=== PATIENT | female | born 1955 | race Caucasian/White ===

== ENCOUNTER 2021-09-24 14:22 | Day surgery (SDC) | payer MEDICARE, OTHER, SELFPAY ==
[2021-09-24] MEDS: Lactated Ringers 1,000 ML 15 ML IV (14:35)
[2021-09-24 15:02] VITALS: BP 143/99; PULSE 69; RESP 16; TEMP 36.3; O2SAT 100; BMI 19.3
--- NOTE | 2021-09-24 16:30 | CALC_PTH ---
PATIENT: RENAE VIDAL LOC[place] [facility] [place][id number] AGE/SX: 66/F ROOM: RE09/24/[address]: Dr. Harleen Franklin MD : 1955 BED: DIS: 09/24/2021 SPEC #: [id number] RECD: 09/25/21 07:57 STATUS: KATRIN HURT #: [id number] JOSE R: 09/24/21 16:[address]: Harleen Franklin DEPT: SURGICAL PATHOLOGY RECD BY: Indigo Nieves ENTERED: 09/25/21 12:47 SP TYPE: Calculi OTHR DR: Dr. Flori Batista DO Tissues: CALCULI Procedures: Surgery Specimen Level I HEADER OPERATION: Cysto, ureteroscopy, retro, laser, stent, basket extraction PRE-OP DIAGNOSIS: Calculus of ureter, hydronephrosis, urinary tract infection, dyspareunia TISSUE SUBMITTED: Right ureteral calculi GROSS DIAGNOSIS Fragments of stone, clinically right ureteral calculi. CRISTOFER:juan 09/25/21 COMMENT The calculus is submitted in its entirety for chemical stone analysis. The results from this study will be reported separately. GROSS DESCRIPTION Received without fixative labeled with the patient's name and designated calculus for analysis. The specimen consists of multiple irregular fragments of brownish-black stone that in aggregate measure 0.3 x 0.3 x 0.1 cm. The entire specimen is submitted for stone analysis. / CRISTOFER:juan 09/25/21 CPT: 58816
--- NOTE | 2021-09-24 18:06 | DCINST_ITS ---
Discharge Instructions Diet Discharge Diet: No restrictions Activity Discharge Activity: Return to Normal Activity May resume sexual activity in: 1 week Dressing / Incision Call your doctor if you observe: Fever of 101 or Higher, Inability to urinate, Inability to have a bowel movement and Uncontrolled pain Follow Up Care Please Follow Up With: Harleen Franklin MD When: call office for appt tomorrow afternoon for stent removal Test Results: Test results from this visit will be discussed in further detail at your follow-up appointment, if applicable. Discharge Plan Admission Attending Provider: Harleen Franklin Primary Care Provider: Flori Batista Discharge Orders/Prescriptions Prescriptions: New oxycodone-acetaminophen [Percocet] 5-325 mg tablet 1 tab PO Q8H PRN (Reason: pain) 3 Days Qty: 10 RF: 0 cephalexin [cephalexin] 500 MG capsule 500 mg PO Q12 3 Days Qty: 6 RF: 0 phenazopyridine [phenazopyridine] 100 MG tablet 100 mg PO TID PRN (Reason: bladder spasms) Qty: 30 RF: 0 Continued multivitamin Tablet 1 tab PO DAILY RF: 0 furosemide 20 mg tablet 1 mg PO DAILY RF: 0 fluticasone propionate 50 mcg/actuation Hendricks,Suspension 1 spray INTRANASAL DAILY RF: 0 Discontinued tamsulosin 0.4 mg capsule 0.4 mg PO DAILY RF: 0 Referrals / Follow Up: Flori Batista DO [Primary Care Provider] - Disposition Disposition (needs filled in before D/C Order can be placed): Home, Self Care
--- NOTE | 2021-09-24 18:10 | PCM.OPRPT ---
Problems Associated Problem List Diagnoses (1) Ureteral calculus: (2) Hydronephrosis: Report of Operation Date of Procedure: 09/24/21 Pre-Operative Diagnosis: Right ureteral calculus with hydronephrosis Post-Operative Diagnosis: Same, bladder tumor medium Surgery/Procedure Performed:: Cystoscopy, right ureteroscopy, holmium laser lithotripsy, stone basket extraction, right ureteral stent insertion Surgeon: Harleen Franklin Type of Anesthesia: General Specimen's removed: right ureteral stone Description of Procedure: The patient is a 66-year-old female with history of stones. She developed right-sided lower abdominal pain and a CT scan revealed a right distal ureteral calculus with hydronephrosis. The decision was made to take the patient to the operating room for removal secondary to pain control. Informed consent was obtained. The patient was taken to the operating room and placed on the operating room table. Anesthesia monitored the head, neck, airway, IV access and vital signs throughout the case. Once anesthesia was appropriately administered the patient was placed into dorsal lithotomy position was prepped and draped in usual sterile fashion. The cystoscope was then inserted through the urethra under direct visualization into the urinary bladder. Bilateral ureteral orifices were located in the correct anatomic area of the bladder trigone. The right orifice was edematous consistent with a distal ureteral calculus. In the posterior bladder wall there was one bladder mass approximately 2 cm in size with 2-3 smaller lesions adjacent. At this time a 0.035 Glidewire was passed into the right ureter and seen on fluoroscopy in the renal pelvis. The semirigid ureteroscope was then used to gently intubate the right ureter, identified the distal stone. The holmium laser fiber was used to break the stone into a few small fragments. The stone basket was then used to retrieve these fragments which were then sent for analysis. When all visible fragments were removed, the safety wire was used to place a 6 Khmer 26 cm JJ stent with the wire secured to the right inner thigh using Steri-Strips and liquid adhesive. The patient's bladder was then emptied and the case was terminated. The patient was awakened and taken to the recovery room in good condition. Grafts/Implants Used: 6 x 26 JJ stent Complications none Admit VTE Documentation VTE Present on Admission: Yes VTE Mechan Device Prophylaxis: SCD's VTE Pharm Prophylaxis ordered?: No Reason prophylaxis not ordered:: Treatment Not Indicated
[2021-09-24 18:13] VITALS: BP 106/66; BP 143/99; PULSE 63; RESP 16; TEMP 36.1; O2SAT 100
[2021-09-24 18:17] VITALS: BP 106/74; BP 143/99; PULSE 60; RESP 16; O2SAT 100
[2021-09-24 18:30] VITALS: BP 116/69; BP 143/99; PULSE 56; RESP 16; TEMP 36.1; O2SAT 100
[2021-09-24 18:59] VITALS: BP 133/79; BP 143/99; PULSE 66; RESP 16; TEMP 36.4; O2SAT 100
== END 2021-09-24 19:25 | disposition home or self-care (01) ==
LOC: SDC 14:32 → AC 14:34
PROVIDERS: Referring Provider Urology; Visit Provider Urology
PROC: 0TJ98ZZ Inspection of Ureter, Via Natural or Artificial Opening Endoscopic (ICD-10-PCS; CPT 52352; principal; 2021-09-24 16:20)
DX: N13.2 Hydronephrosis with renal and ureteral calculous obstruction (principal); M19.90 Unspecified osteoarthritis, unspecified site; Z79.899 Other long term (current) drug therapy; Z87.891 Personal history of nicotine dependence; K21.9 Gastro-esophageal reflux disease without esophagitis; N94.10 Unspecified dyspareunia
CPT/HCPCS: 52356; 76000; 82360; 88300; J7120; C2617; J2405

== ENCOUNTER 2021-10-14 07:34 | Outpatient (CLI) | payer MEDICARE, OTHER, SELFPAY ==
--- NOTE | 2021-10-14 07:39 | BI_ITS ---
MAMMOGRAPHY - BILATERAL SCREENING REASON FOR EXAM: Female, 66 years old. Routine annual screening examination. PERTINENT HISTORY: Aunt with breast cancer. History of recent bladder cancer diagnosis. TECHNIQUE: Digital bilateral breast asaf (3D mammographic acquisition) in the CC and MLO projections. 2-D mediolateral oblique (MLO) and craniocaudad (CC) views of both breasts were obtained. CAD: Full Field Digital Mammography with Computer Added Detection was performed. COMPARISON: None. Baseline examination. FINDINGS: Breast Composition: The breasts are extremely dense, which lowers the sensitivity of mammography. There are no dominant masses or suspicious calcifications. A loop recorder device is seen overlying the mid anterior medial aspect of the left breast. No other significant abnormalities are identified. BI/SCRN MAMM (CAD)W/ASAF BILAT IMPRESSION: Negative screening mammogram. Yearly followup mammogram recommended. (A) ASSESSMENT CATEGORY: BIRADS Category 2: Benign. A letter regarding these results will be sent to the patient by the facility within 30 days. Approximately 10% of breast cancers are not detected by mammography. A normal mammogram should not delay biopsy of a clinically suspicious abnormality. [id number] Electronically Signed: Logan Lawson MD at 12:03 EST , Service support ,
--- NOTE | 2021-10-14 12:57 | PFTCOMP ---
COMPLETE PULMONARY FUNCTION TEST INTERPRETATION Brief HPI: Patient is a 66 year old female, currently under the care of myself, who presents to [facility] for complete pulmonary function tests secondary to diagnosis of lung nodule. Respiratory therapist reports good effort and reproducible results. Interpretation: Forced expiration spirometry shows a mild large airways obstructive ventilatory defect with an FEV1 of 78% predicted. There is no significant bronchodilator response by strict ATS criteria. Spirograms are of good quality and plateau slowly, indicating slowly emptying areas of the lungs. The respiratory flow volume loop shows decreased expiratory flow rates at all lung volumes consistent with airway obstruction. Lung volumes by body plethysmography show an elevated total lung capacity at 7.09 L, 147% predicted. FRC and RV are elevated out of proportion. Lung volume measurements are consistent with hyperinflation and air-trapping. Diffusion capacity by carbon monoxide is an elevated at 134% predicted. The airway resistance is normal. No previous pulmonary function tests were available for review. Impression: Irreversible mild large airways obstructive ventilatory defect resulting in air trapping with hyperinflation
== END 2021-10-14 23:59 | disposition short-term general hospital (02) ==
LOC: PSN 07:35
PROVIDERS: Referring Provider Internal Medicine Critical Care Medicine; Visit Provider Internal Medicine Critical Care Medicine
DX: Z12.31 Encounter for screening mammogram for malignant neoplasm of breast (principal); R91.1 Solitary pulmonary nodule
CPT/HCPCS: 77063; 77067; 94060; 94726; 94729

== ENCOUNTER 2022-01-08 06:51 | Outpatient (CLI) | payer MEDICARE, OTHER, SELFPAY ==
--- NOTE | 2022-01-08 06:53 | CT_ITS ---
STUDY: CT CHEST WITHOUT CONTRAST REASON FOR EXAM: Female, 66 years old. Possible bladder ca with lung nodules RADIATION DOSAGE (If Supplied By Facility): CTDIvol = ( 6.15 ) mGy, DLP = ( 239.72 ) mGycm TECHNIQUE: Transaxial imaging was performed without intravenous contrast administration.. Multiplanar coronal and sagittal images were reformatted. Individualized dose optimization techniques were used for this CT. COMPARISON: None. FINDINGS: Small bilateral axillary lymph nodes. Hyperinflation. Emphysematous changes. Scarring at both lung apices. Findings suggestive of linear scarring in the anterior medial aspect of the lingular segment of the left upper lobe. There is a 5.5 mm noncalcified nodule in the right lower lobe adjacent to the right hemidiaphragm as seen on axial image #109. There is a 5.2 mm noncalcified nodule in the left lower lobe laterally as seen on axial image #97. There is a 6.1 mm noncalcified nodule in the left lower lobe adjacent to the left hemidiaphragm as seen on axial image #107. Faint nodules also seen in the anterior aspect of the left lower lobe as seen on axial image #96. 6.9 mm noncalcified nodule in the superior segment of the right lower lobe as well as a noncalcified nodule measuring 5.1 mm in the superior segment of the left lower lobe as seen on axial image #62. There is no demonstrated pleural abnormality. There are calcifications of the coronary arteries. Small pericardial effusion at the level of the base of the heart. Coronary artery calcification Normal mediastinum. Normal hilar regions. Normal enhanced and unenhanced pulmonary arteries. Normal aorta arch and descending thoracic aorta. There are degenerative changes of the thoracic spine. There is a 3 mm sclerotic focus in the anterior aspect of the pedicle of the T3 vertebrae on the right side. 3 mm nonobstructive calculus in the upper pole of the left kidney. Findings suggestive of hyperdense cysts in the left kidney. CT/Chest without Contrast IMPRESSION: Bilateral subcentimeter pulmonary nodules as described. Hyperinflation and emphysematous changes with scarring in both upper lobes. 3 mm sclerotic focus in the anterior aspect of the pedicle of the T3 vertebrae on the right side. Small pericardial effusion at the level of the base of the heart. Electronically Signed: Logan Lawson MD at 9:06 EDT ,
== END 2022-01-08 23:59 | disposition home or self-care (01) ==
LOC: CT 06:52
PROVIDERS: Referring Provider Internal Medicine Critical Care Medicine; Visit Provider Internal Medicine Critical Care Medicine
DX: R91.8 Other nonspecific abnormal finding of lung field (principal)
CPT/HCPCS: 71250

== ENCOUNTER → 2022-04-17 | Outpatient (CLI) | payer MEDICARE, OTHER, SELFPAY ==
--- NOTE | 2022-04-17 15:02 | CT_ITS ---
EXAM: CT CHEST WITHOUT INTRAVENOUS CONTRAST CLINICAL INDICATION: Mulitple pulmonary nodules. TECHNIQUE: Helically acquired images were obtained of the chest without intravenous contrast. This CT exam was performed using one or more of the following dose reduction techniques: automated exposure control, adjustment of the mA and/or kV according to patient size, and/or use of iterative reconstruction technique. This report was created using [employer] report generation technology. RADIATION DOSE: CTDIvol = 6.20 mGy, DLP = 247.90 mGy-cm. COMPARISON: 01/08/2022. FINDINGS: LUNGS AND PLEURAL SPACES: Emphysema. No change in the bilateral scattered pulmonary nodules all measuring 6 mm or less. No pleural effusion or thickening. No pneumothorax. HEART: Coronary artery calcifications. Heart size is normal. No pericardial effusion. MEDIASTINUM: Unremarkable. No mediastinal or hilar adenopathy. Esophagus is unremarkable. No hiatal hernia. THYROID: Unremarkable. No thyroid lesions. BONES/JOINTS: Unremarkable. No suspicious lytic or blastic abnormality. VASCULATURE: Unremarkable. Thoracic aorta is non-dilated. KIDNEYS AND URETERS: Left nephrolithiasis and multiple hyperdense cysts left kidney unchanged. CT/Chest without Contrast IMPRESSION: 1. Emphysema. 2. No change in the bilateral scattered pulmonary nodules all measuring 6 mm or less. 3. Left nephrolithiasis and multiple hyperdense cysts left kidney unchanged. No follow-up imaging required. 4. Coronary artery disease. RECOMMENDATIONS: No change in the bilateral scattered pulmonary nodules all measuring 6 mm or less. Fleischner Society Guidelines for high-risk patients (smoking history or other known risk factors) recommend follow-up chest CT at 15-21 months. If unchanged, no further follow-up. Electronically Signed: Genaro Bello MD at 0:46 EDT ,
== END | disposition home or self-care (01) ==
LOC: CT 14:43
PROVIDERS: Referring Provider Internal Medicine Critical Care Medicine; Visit Provider Internal Medicine Critical Care Medicine
DX: R91.8 Other nonspecific abnormal finding of lung field (principal)
CPT/HCPCS: 71250

== ENCOUNTER → 2022-05-21 | Outpatient (CLI) | payer MEDICARE, OTHER, SELFPAY ==
--- NOTE | 2022-05-21 07:40 | CT_ITS ---
STUDY: CT ABDOMEN AND PELVIS WITHOUT CONTRAST REASON FOR EXAM: Female, 67 years old. L KIDNEY STONE RADIATION DOSAGE (If Supplied By Facility): CTDIvol = ( 6.09 ) mGy, DLP = ( 273.97 ) mGycm TECHNIQUE: Transaxial images were obtained from the dome of the diaphragm to the symphysis pubis without oral contrast, and without intravenous contrast. Sagittal and coronal images were reconstructed. Individualized dose optimization techniques were used for this CT. COMPARISON: None. FINDINGS: Emphysematous changes seen at the lung bases. There is a 4.5 mm noncalcified nodule in the anterior medial aspect of the left lower lobe. This also evidence of a 4.2 mm noncalcified pleural-based nodule in the lateral aspect of the left lower lobe. There is also evidence of a 7.6 mm noncalcified nodule in the lateral aspect of the left lower lobe. There is a 4.9 mm noncalcified nodule in the posterior aspect of the right lower lobe. These weren''t visualized on the prior CT scan of the thorax dated 04/17/2022. Minimal anterior pericardial thickening. Normal liver. The gallbladder is not visualized most likely secondary to prior cholecystectomy. Borderline splenomegaly. Normal pancreas. Normal bilateral adrenal glands. Normal right kidney. Multiple hyperdense cysts are seen in the left kidney. There is a 3 mm nonobstructive calculus in the upper pole calyx of the left kidney. Normal visualized stomach. Normal small intestine. Large amount of fecal material is seen in the colon. The appendix is visualized and appears normal. There is diffuse atherosclerotic calcification of the abdominal aorta, without a demonstrated aneurysm. Normal inferior vena cava. Normal retroperitoneum. Normal urinary bladder. Phleboliths are seen within the pelvis. Normal abdominal wall. There are diffuse degenerative changes of the visualized lumbar spine. Grade 1 anterolisthesis of L4 on L5 without spondylolysis. There is a 6.8 mm sclerotic density in the right iliac bone adjacent to the right sacroiliac joint. There is also evidence of a 3.4 mm sclerotic focus in the right supra-acetabular region. These may represent small bone islands. CT/Abdomen/Pelvis without Cont IMPRESSION: Multiple pulmonary nodules seen at the lung bases. These are unchanged as compared to prior CT scan of the thorax. Multiple small left hyperdense renal cysts. There is a 3 mm nonobstructive calculus in the upper pole calyx of the left kidney. Borderline splenomegaly. Electronically Signed: Logan Lawson MD at 9:26 EDT ,
== END | disposition home or self-care (01) ==
LOC: CT 07:39
PROVIDERS: Referring Provider Urology; Visit Provider Urology
DX: N20.0 Calculus of kidney (principal)
CPT/HCPCS: 74176

== ENCOUNTER → 2023-03-02 | Outpatient (CLI) | payer MEDICARE, OTHER, SELFPAY ==
--- NOTE | 2023-03-02 14:49 | CT_ITS ---
STUDY: LOW DOSE CT LUNG CANCER SCREENING REASON FOR EXAM: Female, 68 years old. follow up nodules, history of bladder cancer and emphysema. Former smoker age 14 and 48, less than half pack per day. RADIATION DOSAGE (If Supplied By Facility): CTDIvol = ( 2.01 ) mGy, DLP = ( 78.51 ) mGycm TECHNIQUE: No contrast was administered. Low dose technique was utilized (average mAS-38 and kVp 120). 1.25 mm axial source images with a slice interval of 1.25-mm were reconstructed in lung windows. Coronal and sagittal reformats obtained. COMPARISON: January 08, 2022 NODULES: Nodule #: 1 Density: Solid Lung location: Posterior right lower lobe lobe: 0.4 cm from pleura Location in series: Series Number: 2 Image: 204 Size - D1 x D2 mm: 4 x 4 mm: 4 average diameter Margin: spiculated Shape: Round Calcification: None Fat: None Temporal comparison: Unchanged from April 17, 2022 Nodule #: 2 Density: Solid Lung location: Medial right lower lobe lobe: 1.7 cm from pleura Location in series: Series Number: 2 Image: 140 Size - D1 x D2 mm: 7 x 3 mm: 5mm average diameter Margin: Smooth Shape: Oval Calcification: None Fat: None Temporal comparison: Unchanged from April 17, 2022 Nodule #: 3 Density: Solid Lung location: Inferior left lower lobe: 0.2 cm to diaphragm Location in series: Series Number: 2 Image: 204 Size - D1 x D2 mm: 8 x 5 mm: 6 average diameter Margin: Smooth Shape: Oval Calcification: None Fat: None Temporal comparison: Unchanged from April 17, 2022 Nodule #: 4 Density: Solid Lung location: Inferior left lower lobe: 0.2 cm to diaphragm Location in series: Series Number: 2 Image: 202 Size - D1 x D2 mm: 5 x 4 mm: 5 average diameter Margin: Mildly spiculated Shape: Round Calcification: None Fat: None Temporal comparison: Unchanged from April 17, 2022 Nodule #: 5 Density: Solid Lung location: Lateral left lower lobe: Along the diaphragm Location in series: Series Number: 2 Image: 212 Size - D1 x D2 mm: 4x3mm: 4 average diameter Margin: Mildly spiculated Shape: [Oval Calcification: None Fat: None Temporal comparison: Unchanged from April 17, 2022 Nodule #: 6 Density: Solid Lung location: Lateral left upper lobe: 11 mm from the diaphragm Location in series: Series Number: 2 Image: 83 Size - D1 x D2 mm: 2 x2 mm: 2 average diameter Margin: Smooth Shape: [Round Calcification: None Fat: None Temporal comparison: Unchanged from April 17, 2022 Emphysema: Lungs are hyperexpanded and hyperlucent compatible with underlying emphysematous change. No airspace consolidation, effusion, or pneumothorax. Mild bilateral apical scarring. Right middle lobe, anterior right lower lobe, lateral left upper and lower lobe mild centrilobular and tree-in-bud opacities mildly increased from April 17, 2022. Endobronchial lesion: None Aorta: Mild aortic atherosclerosis without ectasia. CORONARY ARTERIES: Mild coronary atherosclerosis. Heart: No cardiomegaly or pericardial effusion. Pulmonary artery: No pulmonary arterial enlargement. Mediastinal nodes: Scattered mediastinal lymph nodes up to 5 mm in short axis in the pulmonary window, unchanged from April 17, 2022. No bulky hilar adenopathy. Other chest and abdominal findings: Multiple hyperdense left renal cysts, unchanged from prior exam. CT/Low Dose CT Lung Screening IMPRESSION: Multiple pulmonary nodules up to 7 mm in size without change from April 17, 2022 Mild diffuse emphysematous change. Mild increase in scattered bilateral peripheral tree-in-bud opacities and punctate centrilobular nodules compatible with with atypical infection, commonly nontuberculous mycobacterial. Lung-RADS category 2 - Continue annual screening with LDCT in 12 months. IMPORTANT NOTES FOR USE: ACR Lung-RADS Version 1.1 Assessment Categories Release Date: 2018 Category: Coded 0-4 bases on nodule(s) with highest degree of suspicion. Negative screen is defined as categories 1 and 2; a positive screen is defined as categories 3 and 4. Category 3 and 4A nodules that are unchanged on interval CT should be coded as category 2, and individuals returned to screening in 12 months. Category 4X: Category 3 or 4 nodules with additional imaging findings that increase the suspicion of lung cancer, such as spiculation, GGN that doubles in size in 1 year, enlarged lymph notes, etc. Category Modifiers: S (significant finding unrelated to lung cancer) Electronically Signed: Sergey Guevara MD at 11:37 EDT ,
== END | disposition home or self-care (01) ==
LOC: CT 14:49
PROVIDERS: Referring Provider Internal Medicine Critical Care Medicine; Visit Provider Internal Medicine Critical Care Medicine
DX: R91.8 Other nonspecific abnormal finding of lung field (principal); Z87.891 Personal history of nicotine dependence
CPT/HCPCS: 71271

== ENCOUNTER → 2023-05-21 | Outpatient (CLI) | payer MEDICARE, OTHER, SELFPAY ==
--- NOTE | 2023-05-21 15:30 | RAD_ITS ---
INDICATION: RENAL CALCULUS EXAMINATION/TECHNIQUE: X-RAY - XR Abdomen 1 View COMPARISON: No prior examinations are available for comparison. FINDINGS: BOWEL GAS PATTERN: Non-obstructive. No bowel or stomach distention. FREE AIR: Not assessed on a single supine view. ORGANOMEGALY: Not seen. CALCIFICATIONS: No abnormal calcifications observed. LOWER CHEST: No acute pathology. BONES AND SOFT TISSUES: No acute pathology. RAD/Abdomen Single View IMPRESSION: 1. Non-obstructive bowel gas pattern. 2. No abnormal calcifications are seen. Electronically Signed: Harsh Almanzar MD at 15:59 EDT ,
== END | disposition home or self-care (01) ==
LOC: MTRAD 15:25
PROVIDERS: Referring Provider Urology; Visit Provider Urology
DX: N20.0 Calculus of kidney (principal)
CPT/HCPCS: 74018

== ENCOUNTER → 2023-11-12 | Outpatient (CLI) | payer MEDICARE, OTHER, SELFPAY ==
--- NOTE | 2023-11-12 13:15 | RAD_ITS ---
STUDY: X-RAY - ABDOMEN/PELVIS REASON FOR EXAM: Female, 68 years old. KUB- STONES TECHNIQUE: KUB COMPARISON: May 21, 2023 FINDINGS: Normal visualized lung bases. There is an unremarkable bowel gas pattern. There is no demonstrated free abdominal air. The visualized liver, spleen and kidneys are grossly normal in size and morphology. There is tiny calcific density in the left upper quadrant which may represent renal or proximal ureteral calculus. There is mild dextroscoliosis of the thoracolumbar spine. RAD/Abdomen Single View IMPRESSION: Questionable tiny left renal or proximal ureteral calculus. If clinically indicated ultrasound or CT would be helpful for further evaluation Electronically Signed: Diego Hwang MD at 22:09 EST ,
--- OUTSIDE RECORDS SUMMARY | 2023-11-12 13:32 | XMS RPT_ITS | CCD ---
Author Name Unknown Address [address] [place] [address] Organization [facility] Care Team Providers Care Community Recreation Programmer Name Role Phone RIVER STEVEN, DR VILLEDA Primary Care Physician [phone] RIVER STEVEN, DR VILLEDA Primary Care Unavailable RIVER STEVEN, DR VILLEDA Attending Unavailable MICHAEL FRANKS, KRISTEN Resendez Attending Unavailable RIVER STEVEN, DR VILLEDA Primary Care Unavailable MICHAEL FRANKS, KRISTEN Resendez Attending Unavailable RIVER STEVEN, DR VILLEDA Primary Care Unavailable RIVER STEVEN, DR VILLEDA Primary Care Unavailable MICHAEL FRANKS, KRISTEN Resendez Attending Unavailable RIVER STEVEN, DR VILLEDA Attending Unavailable RIVER STEVEN, DR VILLEDA Primary Care Unavailable KAREN FRANKS, LINDEN Ford Attending Unavailable RIVER STEVEN, DR VILLEDA Primary Care Unavailable MICHAEL FRANKS, KRISTEN Resendez Attending Unavailable RIVER STEVEN, DR VILLEDA Primary Care Unavailable MICHAEL FRANKS, KRISTEN Resendez Attending Unavailable RIVER STEVEN, DR VILLEDA Primary Care Unavailable MICHAEL FRANKS, KRISTEN Resendez Attending Unavailable RIVER STEVEN, DR VILLEDA Primary Care Unavailable Medications Current Medications Medication Drug Class(es) Dates Sig (Normalized) Sig (Original) amoxicillin 875 mg / clavulanate 125 mg oral tablet (1 source) Penicillin-class Antibacterial Start: 10-01-2023 End: 10-11-2023 take 1 tablet by mouth every twelve hours amoxicillin-clavu lanate 875 mg-125 mg oral tablet 1 tab(s), Oral, q12h, X 10 day(s), # 20 tab(s), 0 Refill(s), 10/11/23 4:14:00 PM EST, Pharmacy: [id number], Acute sinusitis, 167, cm, 10/01/23 16:05:00 EST, Height, 48.6, kg, 10/01/23 16:00:00 EST, Dosing Weight Start Date: 10/01/23 Stop Date: 10/11/23 Status: Ordered fluticasone propionate 0.05 mg/actuat metered dose nasal spray (13 sources) Corticosteroid Start: 07-05-2020 take 1 dose nasal route once daily fluticasone 50 mcg/inh NASAL spray Dose = 2 spray(s), Nostril, each, qDay, # 3 EA, 1 Refill(s), Pharmacy: [facility], 163, cm, 07/05/20 16:42:00 EDT, Height, kg, 07/05/20 16:42:00 EDT, Dosing Weight Start Date: 07/05/20 Status: Ordered fluticasone 50 mcg/inh NASAL spray (7 sources) Start: 07-05-2020 take 1 dose nasal route once daily fluticasone 50 mcg/inh NASAL spray Dose = 2 spray(s), Nostril, each, qDay, # 3 EA, 1 Refill(s), Pharmacy: [facility], 163, cm, 07/05/20 16:42:00 EDT, Height, kg, 07/05/20 16:42:00 EDT, Dosing Weight Start Date: 07/05/20 Status: Ordered furosemide 20 mg oral tablet (10 sources) Loop Diuretic Start: 07-25-2021 Lasix 20 mg oral tablet Dose : 20 mg = 1 tab(s), Oral, qDay, # 90 tab(s), 1 Refill(s), Pharmacy: [facility], 162.5, cm, 07/25/21 16:44:00 EDT, Height, kg, 07/25/21 16:44:00 EDT, Dosing Weight Start Date: 07/25/21 Status: Ordered herbal/nutritional product (5 sources) Start: 10-16-2021 take 1 tablet by mouth once daily as needed for constipation herbal/nutritiona l product Dose = 1 tab(s), Oral, Daily, PRN Constipation, cascara, 0 Refill(s) Start Date: 10/16/21 Status: Ordered Problems Active Problems Problem Classification Problem Date Documented Da te Episodic/Chronic Calculus of urinary tract (20 sources) History of calculus of kidney 09-18-2021 Episodic Cancer of bladder (14 sources) Malignant tumor of urinary bladder; Translations: [Malignant neoplasm of bladder, unspecified] Onset: 11-30-2022 01-30-2022 Chronic Cardiac dysrhythmias (20 sources) Atrial fibrillation; Translations: [Supraventricular tachycardia] 08-07-2021 Chronic Cardiac dysrhythmias (20 sources) Palpitations; Translations: [Bradycardia] 11-17-2019 Episodic Past or Other Problems Problem Classification Problem Date Documented Date Episodic/Chronic Residual codes; unclassified (20 sources) History of cardiovascular surgery Onset: 11-14-2018 11-17-2019 Episodic Results Test Name Value Interpretation Reference Range Facil ity Vital Signs Date Time Vital Sign Value Performing Clinician Faci lity 06-19-2022 12:40-0400 diastolic 90 mm[Hg] LAUREN REYNOLDS MD [address] [place] [address] 06-19-2022 12:40-0400 Heart rate 48 /min LAUREN REYNOLDS MD [address] 06-19-2022 12:40-0400 Respiratory rate 16 /min LAUREN REYNOLDS MD [address] 06-19-2022 12:40-0400 systolic 170 mm[Hg] LAUREN REYNOLDS MD [address] 06-19-2022 09:50-0400 Body height 162.6 cm LAUREN REYNOLDS MD [address] [place] [address] 06-19-2022 09:50-0400 Body temperature 97.88 [degF] LAUREN REYNOLDS MD [address] 06-19-2022 09:50-0400 Body weight 49.8 kg LAUREN REYONLDS MD [address] 06-19-2022 09:50-0400 diastolic 92 mm[Hg] LAUREN REYNOLDS MD [address] 06-19-2022 09:50-0400 Heart rate 49 /min LAUREN REYNOLDS MD [address] 06-19-2022 09:50-0400 Respiratory rate 16 /min LAUREN REYNOLDS MD [facility] 06-19-2022 09:50-0400 systolic 157 mm[Hg] LAUREN REYNOLDS MD [facility] 11-07-2021 15:15-0500 Body temperature 96.44 [degF] KRISTEN BEDOYA MD [facility] 11-07-2021 15:15-0500 Diastolic Blood Pressure NBP 70 1 KRISTEN BEDOYA MD [facility] 11-07-2021 15:15-0500 Heart rate 58 /min KRISTEN BEDOYA MD [facility] 11-07-2021 15:15-0500 Reason For Taking VItal Signs KRISTEN BEDOYA MD [facility] 11-07-2021 15:15-0500 Respiratory rate 14 /min KRISTEN BEDOYA MD [facility] 11-07-2021 15:15-0500 Systolic Blood Pressure NBP 125 1 KRISTEN BEDOYA MD [facility] 11-07-2021 15:00-0500 Diastolic Blood Pressure NBP 81 1 KRISTEN BEDOYA MD [facility] 11-07-2021 15:00-0500 Mean blood pressure 89 mm[Hg] KRISTEN BEDOYA MD [facility] 11-07-2021 15:00-0500 Systolic Blood Pressure NBP 118 1 KRISTEN BEDOYA MD [facility] 11-07-2021 14:43-0500 Body temperature 97.34 [degF] KRISTEN BEDOYA MD [facility] 11-07-2021 14:43-0500 Diastolic Blood Pressure NBP 51 1 KRISTEN BEDOYA MD [facility] 11-07-2021 14:43-0500 Heart rate 54 /min KRISTEN BEDOYA MD [facility] 11-07-2021 14:43-0500 Mean blood pressure 69 mm[Hg] KRISTEN BEDOYA MD [facility] 11-07-2021 14:43-0500 Respiratory rate 16 /min KRISTEN BEDOYA MD [facility] 11-07-2021 14:43-0500 Systolic Blood Pressure NBP 123 1 KRISTEN BEDOYA MD [facility] 11-07-2021 14:31-0500 Heart rate 57 /min KRISTEN BEDOYA MD [facility] 11-07-2021 14:31-0500 Mean blood pressure 85 mm[Hg] KRISTEN BEDOYA MD [facility] 11-07-2021 13:43-0500 Body temperature 97.52 [degF] KRISTEN BEDOYA MD [facility] 11-07-2021 13:30-0500 Body temperature 96.93 [degF] KRISTEN BEDOYA MD [facility] 11-07-2021 13:25-0500 Body temperature 96.6 [degF] KRISTEN BEDOYA MD [facility] 11-07-2021 13:20-0500 Body temperature 97.05 [degF] KRISTEN BEDOYA MD [facility] 11-07-2021 10:35-0500 Body height 163.8 cm KRISTEN BEDOYA MD [facility] 11-07-2021 10:35-0500 Body weight 50.8 kg KRISTEN BEDOYA MD [facility] 11-07-2021 10:35-0500 Diastolic blood pressure 85 mm[Hg] KRISTEN BEDOYA MD [facility] 11-07-2021 10:35-0500 Heart rate 69 /min KRISTEN BEDOYA MD [facility] 11-07-2021 10:35-0500 Mean blood pressure 97 mm[Hg] KRISTEN BEDOYA MD [facility] 11-07-2021 10:35-0500 Systolic blood pressure 122 mm[Hg] KRISTEN BEDOYA MD [facility] 10-31-2021 13:31-0500 Body height 164 cm KRISTEN BEDOYA MD [facility] 10-31-2021 13:31-0500 Body temperature 96.8 [degF] KRISTEN BEDOYA MD [facility] 10-31-2021 13:31-0500 Body weight 51.9 kg KRISTEN BEDOYA MD [facility] 10-31-2021 13:31-0500 Body weight 19.3 kg/m2 KRISTEN BEDOYA MD [facility] 10-31-2021 13:31-0500 diastolic 79 mm[Hg] KRISTEN BEDOYA MD [facility] 10-31-2021 13:31-0500 Heart rate 72 /min KRISTEN BEDOYA MD [facility] 10-31-2021 13:31-0500 systolic 128 mm[Hg] KRISTEN BEDOYA MD [facility] Encounters Encounter Date Encounter Type Care Provider Facility Start: 10-05-2023 End: 10-06-2023 ambulatory LINDEN JONES MD Facility:B Start: 10-05-2023 End: 10-05-2023 Patient encounter procedure LINDEN JONES MD [facility] Start: 08-07-2023 End: 08-08-[address] CHRISTIANA HOLMAN DO Facility:B Start: 08-07-2023 End: 08-07-[address] CHRISTIANA HOLMAN DO [facility] Start: 06-30-2023 End: 07-01-2023 ambulatory KRISTEN BEDOYA MD Facility:A Start: 06-30-2023 End: 06-30-2023 Patient encounter procedure KRISTEN BEDOYA MD [facility] Start: 06-21-2023 End: 06-22-2023 ambulatory KRISTEN BEDOYA MD Facility:B Start: 06-21-2023 End: 06-21-2023 Patient encounter procedure KRISTEN BEDOYA MD [facility] Start: 06-20-2023 End: 06-21-[address] CHRISTIANA HOLMAN DO Facility:B Start: 06-11-2023 End: 06-12-2023 ambulatory KRISTEN BEDOYA MD Facility:B Start: 06-11-2023 End: 06-11-2023 Patient encounter procedure KRISTEN BEDOYA MD [facility] Start: 01-23-2023 End: 01-24-[address] CHRISTIANA HOLMAN DO Facility:B Start: 01-23-2023 End: 01-23-[address] CHRISTIANA HOLMAN DO [facility] Start: 12-09-2022 End: 12-10-2022 ambulatory KRISTEN BEDOYA MD Facility:A Start: 12-09-2022 End: 12-09-2022 Patient encounter procedure KRISTEN BEDOYA MD [facility] Start: 11-30-2022 End: 12-05-2022 ambulatory KRISTEN BEDOYA MD Facility:B Start: 11-30-2022 End: 12-04-2022 Outreach Lab KRISTEN BEDOYA MD [facility] Start: 09-02-2022 End: 09-02-2022 Patient encounter procedure KRISTEN BEDOYA MD [facility] Start: 08-26-2022 End: 08-30-2022 Outreach Lab KRISTEN BEDOYA MD [facility] Start: 06-19-2022 End: 06-19-2022 SAME DAY STAY LAUREN REYNOLDS MD [facility] Start: 06-03-2022 End: 06-03-2022 Patient encounter procedure KRISTEN BEDOYA MD [facility] Start: 01-17-2022 End: 01-17-[address] CHRISTIANA HOLMAN DO [facility] Start: 11-25-2021 End: 11-25-2021 Patient encounter procedure KRISTEN BEDOYA MD [facility] Start: 11-07-2021 End: 11-07-2021 SAME DAY STAY KRISTEN BEDOYA MD [facility] Start: 10-31-2021 End: 10-31-2021 Admission to establishment KRISTEN BEDOYA MD [facility] Start: 10-16-2021 End: 10-16-2021 Patient encounter procedure KRISTEN BEDOYA MD [facility] Start: 09-26-2021 End: 09-26-[address] CHRISTIANA HOLMAN DO [facility] Start: 09-19-2021 End: 09-19-[address] CHRISTIANA HOLMAN DO [facility] Start: 09-18-2021 End: 09-22-[address] CHRISTIANA HOLMAN DO [facility] Procedures Date Procedure Procedure Detail Performing Clinician Start: 06-30-2023 Transurethral cystoscopy KRISTEN BEDOYA MD Start: 11-07-2021 Cystoscopy and transurethral resection of bladder tumor KRISTEN BEDOYA MD Start: 08-08-[address] CHRISTIANA SEPULVEDA DO Immunizations Immunization Date Immunization Notes Care Provider Fa juani 08-29-2021 COVID-19, mRNA, LNP- S, PF, 100 mcg/ 0.5 mL dose; Translations: [Moderna COVID-19 Vaccine] DR CHRISTIANA HOLMAN DO [facility] 02-04-2021 SARS-CoV-2 (COVID-19 ) mRNA-[address] CHRISTIANA HOLMAN DO [facility] Payers Date Payer Category Payer Medicare [id number] 2022 Private Health Insurance [id number] 1955 Unknown [id number] 2.16.8 [id number] 1955 Unknown [id number] 2.16.8 [id number] 1955 Unknown [id number] 2.16.8 [id number] 1955 Unknown [id number] 2.16.8 [id number] 1955 Unknown [id number] 2.16.8 [id number] 1955 Unknown [id number] 2.16.8 [id number] 1955 Unknown [id number] 2.16.8 [id number] 1955 Unknown [id number] 2.16.8 [id number] 1955 Unknown [id number] 2.16.8 [id number] Social History Date Type Detail Facility Start: 11-14-2018 End: 10-31-2021 Ex-smoker (finding) [facility] [place] Sex Assigned At Female [facility] Functional Status Date Assessment Result Facility 06-19-2022 Functional Status Ambulating in room [facility] 06-19-2022 Functional Status Maintained [facility] spital Mental Status Date Assessment Result Facility 06-19-2022 Mental Status Orientation Oriented x 4 [facility] 06-19-2022 Mental Status [facility] 06-19-2022 Mental Status [facility] Clinical Notes 11-07-2021 to 06-11-2023 LaboratoryLaboratoryLaboratoryLaboratoryLaboratoryLaboratoryLaboratoryLaboratory LaboratoryLaboratoryLaboratoryRadiologyLaboratoryRadiologyLaboratoryLaboratoryLa boratoryLaboratoryLaboratory Note Date & Type Note Facility 06-11-2023 Note ORIGINAL EXAMINATION: LIMITED RETROPERITONEAL ULTRASOUND06/11/2023 10:30 am COMPARISON: CT abdomen pelvis 09/19/2021 HISTORY: ORDERING SYSTEM PROVIDED HISTORY: Reason for Exam: bladder cancer FINDINGS: The urinary bladder appears unremarkable with a prevoid volume of approximately 357 mL and a postvoid volume of 11 mL. Bilateral ureteral jets visualized. The right kidney measures 10.7 x 3.8 x 5.3 cm. Suspected 4 mm nonobstructing right renal calculus. Normal parenchymal thickness and echogenicity. Mild pelviectasis. The left kidney measures 10.6 x 4.4 x 4.4 cm. Multiple left renal cyst, 1 of which contains a thin septation and measures 1.4 x 1.2 x 1.3 cm. Some of the cysts likely contain milk of calcium. Additional simple appearing exophytic simple cyst in the inferior pole measures 4.1 x 3.3 x 3.5 cm. There may be some cortical thinning in portions of the left kidney which seems to have slightly nodular margins also. No evidence of obstruction. IMPRESSION: And are there is a tiny right renal calculus. Mild right renal pelviectasis without caliectasis is probably of no clinical significance The left kidney shows some areas of cortical scarring and thinning and multiple echogenic foci which may be milk of calcium within small cysts. No suspicious renal lesion on either side. . No focal abnormalities of urinary bladder. I have personally reviewed the images of this examination and agree with the resident's findings and interpretation. Interpreted by: Neil Belle MD Preliminary Report By: Marleni Gamboa Electronically signed By Neil Belle MD Dictated Date: 06/11/2023 2:43:06 PM Prelim Date: 06/11/2023 5:07:36 PM Sign Date: 06/11/2023 5:07:36 PM Ordering Provider: KRISTEN BEDOYA [facility] 12-01-2022 Note Pathology report verified by [facility] Screened by: STEVE CHOWDHURY Electronically signed by CALVIN BALTAZAR Sign-Out Date: 12/02/2022 11:14 Performing Lab: [address] Pathology Dept [facility] 12-01-2022 Note Pathology report verified by [facility] Screened by: STEVE CHOWDHURY Electronically signed by CALVIN BALTAZAR Sign-Out Date: 12/02/2022 11:14 Performing Lab: [address] Pathology Dept [facility] 12-01-2022 Note Pathology report verified by [facility] Screened by: STEVE CHOWDHURY Electronically signed by CALVIN BALTAZAR Sign-Out Date: 12/02/2022 11:14 Performing Lab: [address] Pathology Dept [facility] 12-01-2022 Note Pathology report verified by [facility] Screened by: STEVE CHOWDHURY Electronically signed by CALVIN BALTAZAR Sign-Out Date: 12/02/2022 11:14 Performing Lab: [place] [id number] [facility] Pathology Dept [facility] 12-01-2022 Note Pathology report verified by [facility] Screened by: STEVE CHOWDHURY Electronically signed by CALVIN BALTAZAR Sign-Out Date: 12/02/2022 11:14 Performing Lab: [facility], [address] [place] [address] Pathology Dept [facility] 06-19-2022 Hospital Discharg e instructions Patient Education 06/19/2022 13:30:43 3- Loop recorder implant.explant 10/2019 (CUSTOM) LOOP RECORDER INPLANT/EXPLANT Discharge Instructions WOUND CARE DO NOT place any ointments, creams, powders or lotions on the incision. Call your doctor s office immediately if you have: oIncreased redness oDrainage from the incision oIncreased pain, warmth or swelling on or around the site oFever or chills that you cannot connect with a cold or flu If you have a dressing: oKeep the dressing clean and dry oYou may remove it after 5 days If you do not have a dressing: oDO NOT shower or get the incision wet for 5 days. oDO NOT clean the incision with any soap, water, peroxide or alcohol. oLeave it dry and uncovered for 5 days, then you may shower using soap and water. oWear loose fitting clothes over the incisional site to avoid irritation until it is healed. MEDICATIONS You may take Tylenol (acetaminophen) for incisional pain or discomfort. ACTIVITY RESTRICTIONS You may return to your normal activities after 24 [address] may be restricted, especially if you have passed out in the past. Discuss driving restrictions with your director of accounts receivable. FOLLOW UP Follow up with the Pacemaker center for routine evaluation of your device. Your appointment to have your device checked and to see the doctor in 12-14 weeks has been scheduled and is listed above in the follow up section of these discharge instructions. Device Monitor Now that you have a permanent pacemaker, ICD, and/or loop recorder (all called a device ) it should be checked regularly. This is done with a monitor that sends information from the device to your director of accounts receivable (heart doctor) office. How will I get my monitor? The monitor will be shipped to your home within 6 weeks after you are discharged. But, if you are given the monitor before discharge, please take it home. You may get other equipment (such as a blood pressure cuff and weight scale) shipped as well. There is no charge for this equipment. How does the monitor work? The monitor needs to be set up close to where you sleep. The monitor will automatically fern picker heart signals and send the information to your doctor. Or you may be asked to push a button to send the information. What are the next steps? You will have an appointment with the nurse at the Device Clinic in about 2 weeks and the nurse will check your device (you will not see your doctor). The nurses will talk to you about the monitor at that time. When you get the monitor, there will be clear instructions with how to set it up. Please call the Device Clinic if you have questions. [facility]: [phone] Ask for the Device Clinic or patrick-in extension [phone] when prompted. Device Clinic Location: [facility] (not the physician office building). Enter the [facility] and take the elevators to the 2nd floor. Take the monroy to the slight left labeled [facility] . If you are interested, you may find information about your device on the web, including videos that will help you understand and set up your monitor. The monitor you will get is based on the company that manufactured your device. Your device card will tell you the vascular surgeon. Using the search box: [employer]: Georgi Communicator quick start oPatient Help: [employer]: [facility] quick start oPatient Help: [employer] ([place]): [email or web address] quick start oPatient Help: Other important information about your device: Always carry your device card with you. Your device may set off a metal detector. Be sure you have your device card with you if you plan to go through any area, such as an airport that may have a metal detector. Before having any test or procedure, make sure you tell the healthcare professional that you have an implanted device. Follow Up Care 05/21/2022 12:38:20 With:[facility] Address: [address] [place] [address] -[address] [address]- [phone] When:09/18/2022 14:30:00 [facility] 06-19-2022 Summary of episod e note Discharge Instructions Thank you for allowing [facility] to assist you with your healthcare needs. The following is important discharge information regarding your hospital visit. Your Care Team CHRISTIANA HOLMAN DO What to do next Scheduled Follow-Up Appointments Appointment Type When With Where Contact InformationPC OV 08/07/2022 03:00 PM EST CHRISTIANA HOLMAN DO [address] [address] URO Off Proc Cysto 09/02/2022 09:00 AM EST KRISTEN BEDOYA MD [facility] CV Office Procedure ILR 09/18/2022 02:30 PM EST [facility] CV OV 05/20/2023 04:15 PM EDT [facility] Follow Up Appointments Follow Up with DEVICE CLINIC When 09/18/2022 02:30 PM EST Where: [address] [place] [address] [id number]- [phone] The Following Activity and Diet Have Been Ordered for You Discharge Activity - Ordered -- May Shower, no restrictions, 06/19/22 12:39:00 EDT No qualifying data available. Allergies NKA Medications Please ask your primary doctor or pharmacist before taking any other medication not listed, including over the counter drugs, herbal medications, vitamins and or supplements as they may interact with your home medications. What How Much When Instructions Last Dose Unchanged fluticasone nasal (fluticasone 50 mcg/ inh NASAL spray) 2 spray(s) each nostril Once a day Unchanged furosemide (Lasix 20 mg oral tablet) 1 tab(s) by mouth Once a day Unchanged ibuprofen (Advil 200 mg oral tablet) 2 tab(s) by mouth Two (2) times a day Unchanged multivitamin (Multivitamin) 1 tab(s) by mouth Every day Please take this list to your next doctor s visit. Bring all medications you take, including over the counter medications, herbals and other supplements with you to your doctor s visit. Patients and families are reminded to discard old lists and to update any records with all medication providers or retail pharmacies. Education Materials LOOP RECORDER INPLANT/EXPLANT Discharge Instructions WOUND CARE DO NOT place any ointments, creams, powders or lotions on the incision. Call your doctor s office immediately if you have: o Increased redness o Drainage from the incision o Increased pain, warmth or swelling on or around the site o Fever or chills that you cannot connect with a cold or flu If you have a dressing: o Keep the dressing clean and dry o You may remove it after 5 days If you do not have a dressing: o DO NOT shower or get the incision wet for 5 days. o DO NOT clean the incision with any soap, water, peroxide or alcohol. o Leave it dry and uncovered for 5 days, then you may shower using soap and water. o Wear loose fitting clothes over the incisional site to avoid irritation until it is healed. MEDICATIONS You may take Tylenol (acetaminophen) for incisional pain or discomfort. ACTIVITY RESTRICTIONS You may return to your normal activities after 24 hours Your [address] may be restricted, especially if you have passed out in the past. Discuss driving restrictions with your director of accounts receivable. FOLLOW UP Follow up with the Pacemaker center for routine evaluation of your device. Your appointment to have your device checked and to see the doctor in 12-14 weeks has been scheduled and is listed above in the follow up section of these discharge instructions. Device Monitor Now that you have a permanent pacemaker, ICD, and/or loop recorder (all called a device ) it should be checked regularly. This is done with a monitor that sends information from the device to your director of accounts receivable (heart doctor) office. How will I get my monitor? The monitor will be shipped to your home within 6 weeks after you are discharged. But, if you are given the monitor before discharge, please take it home. You may get other equipment (such as a blood pressure cuff and weight scale) shipped as well. There is no charge for this equipment. How does the monitor work? The monitor needs to be set up close to where you sleep. The monitor will automatically fern picker heart signals and send the information to your doctor. Or you may be asked to push a button to send the information. What are the next steps? You will have an appointment with the nurse at the Device Clinic in about 2 weeks and the nurse will check your device (you will not see your doctor). The nurses will talk to you about the monitor at that time. When you get the monitor, there will be clear instructions with how to set it up. Please call the Device [facility] if you have questions. [facility]: [phone] Ask for the Device Clinic or patrick-in extension [phone] or [phone] when prompted. Device Clinic Location: [facility] (not the physician office building). [facility] and take the elevators to the 2nd floor. Take the monroy to the slight left labeled [facility] . If you are interested, you may find information about your device on the web, including videos that will help you understand and set up your monitor. The monitor you will get is based on the company that manufactured your device. Your device card will tell you the vascular surgeon. Using the search box: [employer]: Georgi Communicator quick start o Patient Help: [employer]: MyCareLink quick start o Patient Help: [place] ([place]): [email or web address] quick start o Patient Help: Other important information about your device: Always carry your device card with you. Your device may set off a metal detector. Be sure you have your device card with you if you plan to go through any area, such as an airport that may have a metal detector. Before having any test or procedure, make sure you tell the healthcare professional that you have an implanted device. Additional Information VACCINATE! IT SAVES LIVES! Members of the community who have not yet received the COVID-19 vaccine and would like to receive it can visit one of [facility] vaccine clinics. There are many vaccine clinic locations within the [facility]. For locations and available times, please visit [email or web address] [email or web address] It is important to note that some COVID mobile vaccine clinics are held outdoors and may be canceled in rainy or stormy conditions. To learn more about pediatric vaccinations (ages 5-11), we invite you to visit the [facility] webpage. [email or web address] [email or web address] To learn more about the COVID-19 vaccine, we invite you to visit the [facility] website for a list of frequently asked questions. [email or web address] [email or web address] [facility] Patient Portal Access Instructions: Stay connected with your healthcare team and access your personal medical information anytime with the [facility] Patient Portal.If you would like a full copy of your medical records, please contact the [facility] Medical Records Department, Wednesday through Wednesday between 8a.m. and 4:30p.m. Please follow the directions below to access the portal: 1.Access the email account you provided upon registration to the hospital.2.Look for an invitation email from [facility].3.Open the email and access the invitation link: Accept Invitation to [facility]4.Fill in the required castellano to create your account. Sign into [email or web address] with your username and password that you created in the above steps to stay up to date. You can then view a summary of results, a summary of your visits, and the ability to download your summaries to your computer or send the information securely to a physician. Remember that your healthcare information is confidential, so carefully consider who you will allow to register on the [facility] Patient Portal for access to your information. You can also access the [facility] Patient Portal on the Blend mackenzie. Simply click on Health Records under Health Data and then click on the [facility] logo. HOW TO SAFELY DISPOSE OF PRESCRIPTION MEDICATIONS Please use one of the following methods to safely dispose of your unused medications. 1.Use a drug disposal kit: the drug disposal pouch allows you to safely discard your old and unused drugs. Ask your nurse to give you one when you are discharged.2.Visit a local take-back location: Many local pharmacies and police departments have programs that collect old and unwanted prescription drugs. Call your local pharmacy or go to http://Evaneos.MediaLifTV/[email or web address] to find one close to you.3.Make use of household items: Use cat litter or old coffee grounds to dispose medications if other options are not available. Mix your drugs with these household products, seal them in an airtight container and throw it into the garbage. Call [facility]: [phone] to be sure your drugs can be disposed of in this way. Some medicines may require a different approach.4.Never flush your medications down the toilet. IF YOU HAVE BEEN PRESCRIBED AN OPIOID FOR PAIN If you have been prescribed an opioid (such as hydrocodone, oxycodone or morphine), it is critical to understand the possible side effects and risks of opioid pain medications. Even when taken as directed, opioids can have several side effects including: Tolerance, meaning you might need to take more of a medication for the same pain relief. Nausea, vomiting and/or constipation. Sleepiness, dizziness, dry mouth, confusion, depression or itching. Physical dependence, meaning you have withdrawal symptoms when a medication is stopped, can develop within a few days. KNOW YOUR RESPONSIBILITIES It is important to know exactly how much and how often to take the opioid pain medications you are prescribed. Never take opioids in higher amounts or more often than prescribed. Do not combine opioids with alcohol or other drugs that cause drowsiness, such as benzodiazepines, also known as benzos, including diazepam and alprazolam, muscle relaxants or sleep aids. Never sell or share prescription opioids. This is illegal. Store opioids in a secure place and out of reach of others (including children, family, friends and visitors). The last page of this document has been signed and retained as a CHART COPY. Signatures Patient Education Materials 3- Loop recorder implant.explant 10/2019 (CUSTOM) Medication Leaflets My discharge plan and instructions have been reviewed and explained to me and I,RENAE VIDAL understand my current condition and have read and understand these discharge instructions. I have received a written copy of the plan/instructions. If I have questions, I am aware that I should contact my doctor. 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 Patient had 2 episodes of atrial fibrillation, 1 lasting 2 hours, the other lasting about 15 minutes. Her [id number]=3 (annual stroke risk = 1.3%) (without female gender). I discussed that anticoagulation should be considered, but not necessarily recommended or admitted, as risk/benefit profile are similar. She is very hesitant to go on blood thinners out of fear of them, and also knowing she has bladder cancer and that could bleed. I tried to reassure her. We did also discuss watchman left atrial pended occlusion as a potential means of avoiding blood thinners, which seems appropriate in the setting of bladder cancer which could entail multiple procedures. We discussed the risk/benefits of that. She is very uncertain of what to do. At this time, given her ILRis at [employer], we will proceed with loop recorder change out. Course: Patient did well. She tolerated the loop explant, loop reimplant procedure. She will go home with no limitations Allergies NKA Procedures Loop explant (Medtronic) Loop reimplant (Medtronic) Consults No qualifying data available. Imaging Results and Diagnostics none Physical Exam Vitals and Measurements T: 36.6 C (Oral) HR: 48 RR: 16 BP: 170/90(Left Arm) SpO2: 99% HT: 162.6 cm WT: 49.8 kg Weight Dosing Weight: 49.8 kg (06/19/22) General Appearance: Alert and oriented x3, no apparent distress Head: Normocephalic, atraumatic EENT: EOMI, PERRLA, mucous membranes moist Neck: Supple, no thyromegaly. Cardiac: rrr, no mrg. Lungs: Clear to auscultation bilaterally, no wheezing, rales, rhonchi. Abdomen: Nondistended, nontender, bowel sounds present. Musculoskeletal: No gross deformities. Extremities: no significant lower extremity edema, no calf tenderness, pedal pulses are present bilaterally Neurological: No focal deficits Skin: Warm, dry, intact Psychiatric: Mood congruent, cooperative Pending Labs and Studies none Code Status Full Admission Date 06/19/20 Discharge Date 06/19/2022 Medications Unchanged fluticasone nasal (fluticasone 50 mcg/inh NASAL spray)2 spray(s) each nostril once a day. Refills: 1. furosemide (Lasix 20 mg oral tablet)1 tab(s) by mouth once a day. Refills: 1. ibuprofen (Advil 200 mg oral tablet)2 tab(s) by mouth two (2) times a day. multivitamin (Multivitamin)1 tab(s) by mouth every day. Follow Up Follow Up with [facility] When 09/18/2022 02:30 PM EST Where: [address] [place] [address] [address] [address]- [phone] Follow Up Labs/Studies Discharge Labs No Follow-up Labs Discharge Studies No Follow-up Studies Discharge Diet no change Discharge Activity Discharge Activity - Ordered -- May Shower, no restrictions, 06/19/22 12:39:00 EDT Condition on Discharge stable Discharge Disposition Home Information Provided To patient Digitally Signed by LAUREN REYNOLDS MD on 06/19/2022 01:02 PM [facility] 11-07-2021 Hospital Discharg e instructions Patient Education 11/07/2021 15:33:45 [facility] Discharge Instructions Template (06/2018) (CUSTOM) [place] SAME DAY SURGERY DISCHARGE INSTRUCTIONS PLEASE FOLLOW THE INSTRUCTIONS BELOW MARKED WITH AN X: _x_ Regular Diet: Start with clear liquids, then soup and crackers and gradually add other foods. _x__ Drink extra fluids. ___ Special Diet Instructions: ___ ACTIVITY: _x__ Avoid stress to suture line. Since you have had an anesthetic, it would be advisable not to drive, drink alcohol, or make major decisions over the next 24 hours. You may require more rest tonight and tomorrow. ___ May resume regular activity as tolerated. ___ Restrict activity as follows: ___ ___ Walk Only ___ ___ Do not go up and down stairs. ___ Do not ride in car until ___ ___ Do not drive car. ___ Do not have sexual intercourse. ___ No heavy lifting, pushing or straining. _x__ Other: _Follow all verbal and written instructions from Dr. Bedoya BATHING/SHOWERING: ___ Sponge bathe until office visit. ___ Sitting in tub of warm water may relieve discomfort. ___ May tub bathe ___ May shower ___ On day after surgery sit in tub of warm water to soak off dressing. DRESSING: ___ Keep operative area dry and clean for ___ ___ Check the operative area for signs of bleeding. Apply pressure to the bleeding site if necessary and call your physician. ___ Change dressing as necessary using sterile dressing material or bandaid. ___ Reinforce dressing as necessary. ___ Change and care for wound as follows: ___ ___ Wear bra for ___ days following breast surgery for comfort. ___ Change drip pad as needed. ___ Wear scrotal support for comfort. WATCH FOR SIGNS OF INFECTION: (Usually appears 36-48 hours after surgery) Increased temperature (101 degrees Fahrenheit or higher) Redness or swelling Increased pain Foul odor or drainage. If you have any questions, please call your doctor at the number listed on your follow up instructions. Follow all instructions given to you by your physician. Please complete and return the survey you will be receiving in the mail to help us better serve our patients. Form: 1522 ([id number]) R: 01/03 Follow Up Care 10/27/2021 07:52:19 With:KRISTEN BEDOYA MD, [facility] Address: [phone] When: Unknown Comments:Office will call to schedule follow up appointment. [facility] Evaluation + Plan note Future Appointments Appointment Date:10/06/2021 09:15:00 AM Scheduled Provider: Location:[facility] Appointment Type:CV Remote Procedure HM Appointment Date:01/16/2022 04:40:00 PM Scheduled Provider:CHRISTIANA HOLMAN DO Location:[facility] Appointment Type:PC OV Appointment Date:02/05/2022 04:30:00 PM Scheduled Provider: Location:[facility] Appointment Type:CV OV Future Scheduled TestsMagnesium Level 07/25/21Thyroid Antibodies 07/25/21Thyroid Stimulating Hormone 07/25/21Free T4 07/25/21A1C Hemoglobin 07/25/21Complete Blood Count 07/25/21Fr T3 07/25/21Lipid Profile 07/25/21Complete Metabolic Panel 07/25/21 [facility] Evaluation + Plan note Future Appointments Appointment Date:10/22/2021 08:10:00 AM Scheduled Provider:KRISTEN BEDOYA MD Location:UROLOGY Appointment Type:URO Off Proc Cysto Appointment Date:01/08/2022 03:15:00 PM Scheduled Provider: Location:[facility] Appointment Type:CV Office Procedure ILR Appointment Date:01/16/2022 04:40:00 PM Scheduled Provider:CHRISTIANA HOLMAN DO Location:[facility] Appointment Type:PC OV Appointment Date:02/05/2022 04:30:00 PM Scheduled Provider: Location:[facility] Appointment Type:CV OV Appointment Date:04/09/2022 10:00:00 AM Scheduled Provider: Location:[facility] Appointment Type:CV Remote Procedure HM Future Scheduled TestsMagnesium Level 07/25/21Thyroid Antibodies 07/25/21Thyroid Stimulating Hormone 07/25/21Free T4 07/25/21A1C Hemoglobin 07/25/21Complete Blood Count 07/25/21Free T3 07/25/21Lipid Profile 07/25/21Complete Metabolic Panel 07/25/21 [facility] Evaluation + Plan note Future Appointments Appointment Date:01/08/2022 03:15:00 PM Scheduled Provider: Location:[facility] Appointment Type:CV Office Procedure ILR Appointment Date:01/16/2022 04:40:00 PM Scheduled Provider:CHRISTIANA HOLMAN DO Location[facility] Appointment Type:PC OV Appointment Date:02/05/2022 04:30:00 PM Scheduled Provider: Location:[facility] Appointment Type:CV OV Appointment Date:04/09/2022 10:00:00 AM Scheduled Provider: Location:[facility] Appointment Type:CV Remote Procedure HM Future Scheduled TestsMagnesium Level 07/25/21Thyroid Antibodies 07/25/21Thyroid Stimulating Hormone 07/25/21Thyroid Stimulating Hormone 10/24/21Free T4 07/25/21A1C Hemoglobin 07/25/21A1C Hemoglobin 10/24/21Complete Blood Count 07/25/21Complete Blood Count 10/24/21Free T3 07/25/21Lipid Profile 07/25/21Complete Metabolic Panel 07/25/21Complete Metabolic Panel 10/24/21 [facility] Evaluation + Plan note Future Appointments Appointment Date:01/08/2022 03:15:00 PM Scheduled Provider: Location:[facility] Appointment Type:CV Office Procedure ILR Appointment Date:01/16/2022 04:40:00 PM Scheduled Provider:CHRISTIANA HOLMAN DO Location:[facility] Appointment Type:PC OV Appointment Date:02/05/2022 04:30:00 PM Scheduled Provider: Location:[facility] Appointment Type:CV OV Appointment Date:02/25/2022 10:00:00 AM Scheduled Provider:KRISTEN BEDOYA MD Location:UROLOGY Appointment Type:URO Off Proc Cysto Appointment Date:04/09/2022 10:00:00 AM Scheduled Provider: Location:[facility] Appointment Type:CV Remote Procedure HM Future Scheduled TestsMagnesium Level 07/25/21Thyroid Antibodies 07/25/21Thyroid Stimulating Hormone 07/25/21Thyroid Stimulating Hormone 10/24/21Free T4 07/25/21Pathology Non-Router Operator Pin Request 02/25/22A1C Hemoglobin 07/25/21A1C Hemoglobin 10/24/21Complete Blood Count 07/25/21Complete Blood Count 10/24/21Free T3 07/25/21Lipid Profile 07/25/21Complete Metabolic Panel 07/25/21Complete Metabolic Panel 10/24/21 [facility] Evaluation + Plan note Future Appointments Appointment Date:01/30/2022 03:00:00 PM Scheduled Provider:CHRISTIANA HOLMAN DO Location:[facility] Appointment Type:PC OV Appointment Date:02/05/2022 02:45:00 PM Scheduled Provider: Location:[facility] Appointment Type:CV OV Appointment Date:02/25/2022 10:00:00 AM Scheduled Provider:KRISTEN BEDOYA MD Location:UROLOGY Appointment Type:URO Off Proc Cysto Appointment Date:04/09/2022 10:00:00 AM Scheduled Provider: Location:[facility] Appointment Type:CV Remote Procedure HM Future Scheduled TestsPathology Non-Router Operator Pin Request 02/25/22Magnesium Level 01/09/22Thyroid Antibodies 07/25/21Thyroid Stimulating Hormone 07/25/21Thyroid Stimulating Hormone 01/09/22Free T4 01/09/22A1C Hemoglobin 07/25/21A1C Hemoglobin 01/09/22Complete Blood Count 07/25/21Complete Blood Count 01/09/22Free T3 01/09/22Lipid Profile 07/25/21Complete Metabolic Panel 07/25/21Complete Metabolic Panel 01/09/22 [facility] Evaluation + Plan note Future Appointments Appointment Date:06/19/2022 08:00:00 AM Scheduled Provider: Location:[facility] Appointment Type:EP Event Recorder Insertion Appointment Date:08/07/2022 03:00:00 PM Scheduled Provider:CHRISTIANA HOLMAN DO Location:[facility] Appointment Type:PC OV Appointment Date:09/18/2022 02:30:00 PM Scheduled Provider: Location:[facility] Appointment Type:CV Office Procedure ILR Appointment Date:05/20/2023 04:15:00 PM Scheduled Provider: Location:[facility] Appointment Type:CV OV Future Scheduled TestsPathology Non-Router Operator Pin Request 02/25/22Pathology Non-Router Operator Pin Request 09/02/22Thyroid Antibodies 07/25/21Thyroid Stimulating Hormone 07/25/21A1C Hemoglobin 07/25/21Complete Blood Count 07/25/21Complete Blood Count 01/09/22Lipid Profile 07/25/21Complete Metabolic Panel 07/25/21 [facility] Evaluation + Plan note Future Appointments Appointment Date:08/07/2022 03:00:00 PM Scheduled Provider:CHRISTIANA HOLMAN DO Location:[facility] Appointment Type:PC OV Appointment Date:09/02/2022 09:00:00 AM Scheduled Provider:KRISTEN BEDOYA MD Location:UROLOGY Appointment Type:URO Off Proc Cysto Appointment Date:09/18/2022 02:30:00 PM Scheduled Provider: Location:[facility] Appointment Type:CV Office Procedure ILR Appointment Date:12/17/2022 09:30:00 AM Scheduled Provider: Location:[facility] Appointment Type:CV Remote Procedure HM Appointment Date:05/20/2023 04:15:00 PM Scheduled Provider: Location:[facility] Appointment Type:CV OV Future Scheduled TestsPathology Non-Router Operator Pin Request 02/25/22Pathology Non-Router Operator Pin Request 09/02/22Thyroid Antibodies 07/25/21Thyroid Stimulating Hormone 07/25/21A1C Hemoglobin 07/25/21Complete Blood Count 07/25/21Complete Blood Count 01/09/22Lipid Profile 07/25/21Complete Metabolic Panel 07/25/21 [facility] Evaluation + Plan note Future Appointments Appointment Date:09/02/2022 09:00:00 AM Scheduled Provider:KRISTEN BEDOYA MD Location:UROLOGY Appointment Type:URO Off Proc Cysto Appointment Date:09/18/2022 02:30:00 PM Scheduled Provider: Location:[facility] Appointment Type:CV Office Procedure ILR Appointment Date:12/17/2022 09:30:00 AM Scheduled Provider: Location:[facility] Appointment Type:CV Remote Procedure HM Appointment Date:02/05/2023 03:00:00 PM Scheduled Provider:CHRISTIANA HOLMAN DO Location[facility] Appointment Type:PC OV Follow Up Appointment Date:05/20/2023 04:00:00 PM Scheduled Provider: Location:[facility] Appointment Type:CV Office Procedure ILR Appointment Date:05/20/2023 04:15:00 PM Scheduled Provider: Location:[facility] Appointment Type:CV OV Future Scheduled TestsPathology Non-Router Operator Pin Request 02/25/22Pathology Non-Router Operator Pin Request 09/02/22Complete Blood Count 01/09/22 [facility] Evaluation + Plan note Future Appointments Appointment Date:09/18/2022 02:30:00 PM Scheduled Provider: Location:[facility] Appointment Type:CV Office Procedure ILR Appointment Date:12/17/2022 09:30:00 AM Scheduled Provider: Location:[facility] Appointment Type:CV Remote Procedure HM Appointment Date:02/05/2023 03:00:00 PM Scheduled Provider:CHRISTIANA HOLMAN DO Location:[facility] Appointment Type:PC OV Follow Up Appointment Date:05/20/2023 04:00:00 PM Scheduled Provider: Location:[facility] Appointment Type:CV Office Procedure ILR Appointment Date:05/20/2023 04:15:00 PM Scheduled Provider: Location:[facility] Appointment Type:CV OV Future Scheduled TestsPathology Non-Router Operator Pin Request 02/25/22Pathology Non-Router Operator Pin Request 09/02/22Pathology Non-Router Operator Pin Request 12/01/22Complete Blood Count 01/09/22 [facility] Evaluation + Plan note Future Appointments Appointment Date:12/09/2022 09:40:00 AM Scheduled Provider:KRISTEN BEDOYA MD Location:UROLOGY Appointment Type:URO Off Proc Cysto Appointment Date:12/23/2022 09:30:00 AM Scheduled Provider: Location:[facility] Appointment Type:CV Remote Procedure HM Appointment Date:02/05/2023 03:00:00 PM Scheduled Provider:CHRISTIANA HOLMAN DO Location:[facility] Appointment Type:PC OV Follow Up Appointment Date:05/20/2023 04:00:00 PM Scheduled Provider: Location:[facility] Appointment Type:CV Office Procedure ILR Appointment Date:05/20/2023 04:15:00 PM Scheduled Provider: Location:[facility] Appointment Type:CV OV Future Scheduled TestsPathology Non-Router Operator Pin Request 02/25/22Pathology Non-Router Operator Pin Request 09/02/22Complete Blood Count 01/09/22 [facility] Evaluation + Plan note Future Appointments Appointment Date:12/23/2022 09:30:00 AM Scheduled Provider: Location:[facility] Appointment Type:CV Remote Procedure HM Appointment Date:02/05/2023 03:00:00 PM Scheduled Provider:CHRISTIANA HOLMAN DO Location:[facility] Appointment Type:PC OV Follow Up Appointment Date:05/20/2023 04:00:00 PM Scheduled Provider: Location:[facility] Appointment Type:CV Office Procedure ILR Appointment Date:05/20/2023 04:15:00 PM Scheduled Provider: Location:[facility] Appointment Type:CV OV Future Scheduled TestsPathology Non-Router Operator Pin Request 02/25/22Pathology Non-Router Operator Pin Request 09/02/22Pathology Non-Router Operator Pin Request 06/11/23Complete Blood Count 01/09/22US Renal 06/11/23 [facility] Evaluation + Plan note Future Appointments Appointment Date:02/05/2023 03:00:00 PM Scheduled Provider:CHRISTIANA HOLMAN DO Location:[facility] Appointment Type:PC OV Follow Up Appointment Date:02/15/2023 10:00:00 AM Scheduled Provider: Location:[facility] Appointment Type:CV OV Appointment Date:02/15/2023 10:15:00 AM Scheduled Provider: Location:[facility] Appointment Type:CV Office Procedure ILR Appointment Date:05/17/2023 10:45:00 AM Scheduled Provider: Location:[facility] Appointment Type:CV Remote Procedure HM Appointment Date:06/30/2023 09:00:00 AM Scheduled Provider:KRISTEN BEDOYA MD Location:UROLOGY Appointment Type:URO Off Proc Cysto Future Scheduled TestsPathology Non-Router Operator Pin Request 02/25/22Pathology Non-Router Operator Pin Request 09/02/22Pathology Non-Router Operator Pin Request 06/11/23Thyroid Stimulating Hormone 12/18/22A1C Hemoglobin 12/18/22Complete Blood Count 12/18/22Lipid Profile 12/18/22Complete Metabolic Panel 12/18/22US Renal 06/11/23 [facility] Evaluation + Plan note Future Appointments Appointment Date:06/23/2023 08:15:00 AM Scheduled Provider: Location:[facility] Appointment Type:CV Remote Procedure HM Appointment Date:06/30/2023 09:00:00 AM Scheduled Provider:KRISTEN BEDOYA MD Location:UROLOGY Appointment Type:URO Off Proc Cysto Appointment Date:08/12/2023 03:30:00 PM Scheduled Provider:CHRISTIANA HOLMAN DO Location:[facility] Appointment Type:PC OV Future Scheduled TestsPathology Non-Router Operator Pin Request 09/02/22Pathology Non-Router Operator Pin Request 06/11/23Thyroid Stimulating Hormone 08/08/23A1C Hemoglobin 08/08/23Complete Blood Count 08/08/23Lipid Profile 08/08/23Complete Metabolic Panel 08/08/23 [facility] Evaluation + Plan note Future Appointments Appointment Date:06/23/2023 08:15:00 AM Scheduled Provider: Location:[facility] Appointment Type:CV Remote Procedure Appointment Date:06/30/2023 09:00:00 AM Scheduled Provider:KRISTEN BEDOYA MD Location:UROLOGY Appointment Type:URO Off Proc Cysto Appointment Date:08/12/2023 03:30:00 PM Scheduled Provider:CHRISTIANA HOLMAN DO Location:[facility] Appointment Type:PC OV Future Scheduled TestsPathology Non-Router Operator Pin Request 09/02/22Thyroid Stimulating Hormone 08/08/23A1C Hemoglobin 08/08/23Complete Blood Count 08/08/23Lipid Profile 08/08/23Complete Metabolic Panel 08/08/23 [facility] Evaluation + Plan note Future Appointments Appointment Date:08/12/2023 03:30:00 PM Scheduled Provider:CHRISTIANA HOLMAN DO Location:[facility] Appointment Type:PC OV Appointment Date:11/10/2023 10:00:00 AM Scheduled Provider: Location:[facility] Appointment Type:CV Remote Procedure HM Appointment Date:12/29/2023 08:00:00 AM Scheduled Provider:KRISTEN BEDOYA MD Location:UROLOGY Appointment Type:URO Off Proc Cysto Future Scheduled TestsPathology Non-Router Operator Pin Request 12/30/23Pathology Non-Router Operator Pin Request 09/02/22Thyroid Stimulating Hormone 08/08/23A1C Hemoglobin 08/08/23Complete Blood Count 08/08/23Lipid Profile 08/08/23Complete Metabolic Panel 08/08/23 [facility] Evaluation + Plan note Future Appointments Appointment Date:08/12/2023 03:30:00 PM Scheduled Provider:CHRISTIANA HOLMAN DO Location:[facility] Appointment Type:PC OV Appointment Date:11/10/2023 10:00:00 AM Scheduled Provider: Location:[facility] Appointment Type:CV Remote Procedure HM Appointment Date:12/29/2023 08:00:00 AM Scheduled Provider:KRISTEN BEDOYA MD Location:UROLOGY Appointment Type:URO Off Proc Cysto Future Scheduled TestsPathology Non-Router Operator Pin Request 12/30/23Pathology Non-Router Operator Pin Request 09/02/22 [facility] Evaluation + Plan note Future Appointments Appointment Date:11/10/2023 10:00:00 AM Scheduled Provider: Location:[facility] Appointment Type:CV Remote Procedure HM Appointment Date:12/29/2023 08:00:00 AM Scheduled Provider:KRISTEN BEDOYA MD Location:UROLOGY Appointment Type:URO Off Proc Cysto Appointment Date:02/11/2024 03:30:00 PM Scheduled Provider:CHRISTIANA HOLMAN DO Location:[facility] Appointment Type:PC OV Future Scheduled TestsPathology Non-Router Operator Pin Request 12/30/23Thyroid Stimulating Hormone 02/10/24A1C Hemoglobin 02/10/24Complete Blood Count 02/10/24Lipid Profile 02/10/24Complete Metabolic Panel 02/10/24 [facility] Hospital course Narrative No data available for this section [facility] Hospital Discharge instructions No data available for this section [facility] Note LAUREN REYNOLDS MD: SIGN, VERIFY Event Display: Insert Event Recorder Authored Date: [facility] Progress note No data available for this section [facility] Summary Purpose Family History No Family History Records Found Advance Directives No Advanced Directives Records Found Additional Source Comments Care Team (unrecognized sect ion and content) Personnel Name: CHRISTIANA HOLMAN DO Address: [address] [place] [address]- Care Team Personnel Name: CHRISTIANA HOLMAN DO Position: P4 Physician - Primary Care Member Role: Primary Care Physician Address: Address: [address] [place] [address] Name: LAUREN REYNOLDS MD Position: P4 Physician - Cardiology Member Role: Title Search Manager Address: Address: [address] [place] [address] [place] [address]- Care Team Related Persons Name: ELISSA AG Name: NORMA VIDAL Address: [address] [place], [place] [id number] [place] Care Team Personnel Name: CHRISTIANA HOLMAN DO Position: P4 Physician - Primary Care Member Role: Primary Care Physician Address: Address: [address] [place] [address] Name: LAUREN REYNOLDS MD Position: P4 Physician - Cardiology Member Role: Title Search Manager Address: Address: [address] [place] [address] Care Team Related Persons Name: ELISSA AG Name: NORMA VIDAL Address: [address] [place], [place] [id number] [place] Care Team Personnel Name: CHRISTIANA HOLMAN DO Position: P4 Physician - Primary Care Member Role: Primary Care Physician Address: Address: [address] [place] [address] Name: LAUREN REYNOLDS MD Position: P4 Physician - Cardiology Member Role: Title Search Manager Address: Address: [facility] [place] [address] [place], [place] [id number]- [place] Care Team Related Persons Name: ELISSA AG Name: NORMA VIDAL Address: [address] [facility] [place] [id number] [place] Care Team Personnel Name: CHRISTIANA HOLMAN DO Position: P4 Physician - Primary Care Member Role: Primary Care Physician Address: Address: [address] [place] [address]- Name: LAUREN REYNOLDS MD Position: P4 Physician - Cardiology Member Role: Title Search Manager Address: Address: [address] [place] [address]- Care Team Related Persons Name: ELISSA AG Name: NORMA VIDAL Address: [address] [place], [place] [id number] [place] Care Team Personnel Name: CHRISTIANA HOLMAN DO Position: P4 Physician - Primary Care Member Role: Primary Care Physician Address: Address: [address] [place] [address]- Name: LAUREN REYNOLDS MD Position: P4 Physician - Cardiology Member Role: Title Search Manager Address: Address: [address] [place] [address]- Care Team Related Persons Name: ELISSA AG Name: NORMA VIDAL Address: [address] [place], [place] [id number] [place] Care Team Personnel Name: CHRISTIANA HOLMAN DO Position: P4 Physician - Primary Care Member Role: Primary Care Physician Address: Address: [address] [place] [address]- Name: LAUREN REYNOLDS MD Position: P4 Physician - Cardiology Member Role: Title Search Manager Address: Address: [address] [place] [address] [place] [id number]- Care Team Related Persons Name: ELISSA AG Name: NORMA VIDAL Address: [address] [place] [place], [place] [id number] [place] Care Team Personnel Name: CHRISTIANA HOLMAN DO Position: P4 Physician - Primary Care Member Role: Primary Care Physician Address: Address: [address] [place] [address]- Name: LAUREN REYNOLDS MD Position: P4 Physician - Cardiology Member Role: Title Search Manager Address: Address: [facility] [place] [place] [id number]- [place] Care Team Related Persons Name: ELISSA AG Name: NORMA VIDAL Address: [address] [place] [phone] [place] Care Team (unrecognized sect ion and content) Care Team Personnel Name: CHRISTIANA HOLMAN DO Position: P4 Physician - Primary Care Med Service: Active Provider Member Role: Primary Care Physician Address: Address: [address] [place] [address]- Name: LAUREN REYNOLDS MD Position: P4 Physician - Cardiology Med Service: Active Provider Member Role: Title Search Manager Address: Address: [facility] [place] [place] [id number]- [place] Care Team Related Persons Name: ELISSA AG Name: NORMA VIDAL Address: [address] [place], [place] [phone] [place] Care Team Personnel Name: CHRISTIANA HOLMAN DO Position: P4 Physician - Primary Care Med Service: Active Provider Member Role: Primary Care Physician Address: Address: [address] [place] [address] [place] Name: LAUREN REYNOLDS MD Position: P4 Physician - Cardiology Med Service: Active Provider Member Role: Title Search Manager Address: Address: [address] [facility] [place] [id number]- [place] Care Team Related Persons Name: ELISSA AG Name: NORMA VIDAL Address: [address] [place] [id number] [place] Care Team Personnel Name: CHRISTIANA HOLMAN DO Position: P4 Physician - Primary Care Member Role: Primary Care Physician Address: Address: [address] [place] [address]- Name: LAUREN REYNOLDS MD Position: P4 Physician - Cardiology Member Role: Title Search Manager Address: Address: [address] [place] [address] [place] [id number]- Care Team Related Persons Name: ELISSA AG Name: NORMA VIDAL Address: [address] [place], [place] [phone] [place] Care Team Personnel Name: CHRISTIANA HOLMAN DO Position: P4 Physician - Primary Care Member Role: Primary Care Physician Address: Address: [address] [place] [address]- Name: LAUREN REYNOLDS MD Position: P4 Physician - Cardiology Member Role: Title Search Manager Address: Address: [address] [place], [place] [phone]- Care Team Related Persons Name: ELISSA AG Name: NORMA VIDAL Address: [address] [place], [place] [phone] [place] Care Team Personnel Name: CHRISTIANA HOLMAN DO Position: P4 Physician - Primary Care Member Role: Primary Care Physician Address: Address: [address] [place] [address]- Name: LAUREN REYNOLDS MD Position: P4 Physician - Cardiology Member Role: Title Search Manager Address: Address: [address] [place] [address]- Care Team Related Persons Name: ELISSA AG Name: NORMA VIDAL Address: [address] [place], [place] [phone] [place] INFORMATION SOURCE (unrecogn ized section and content) FOR RECORDS PERTAINING TO PATIENTS WHO ARE OR HAVE BEEN ENROLLED IN A CHEMICAL DEPENDENCY/SUBSTANCEABUSE PROGRAM, SOME INFORMATION MAY BE OMITTED. This clinical summary was aggregated from multiple sources. Caution should be exercised in using it in the provision of clinical care. This summary normalizes information from multiple sources, and as a consequence, information in this document may materially change the coding, format and clinical context of patient data. In addition, data may be omitted in some cases. CLINICAL DECISIONS SHOULD BE BASED ON THE PRIMARY CLINICAL RECORDS. [facility]. provides no warranty or guarantee of the accuracy or completeness of information in this document.
== END | disposition home or self-care (01) ==
LOC: MTRAD 13:12
PROVIDERS: Referring Provider Urology; Visit Provider Urology
DX: N20.0 Calculus of kidney (principal)
CPT/HCPCS: 74018

== ENCOUNTER → 2023-11-30 | Outpatient (CLI) | payer MEDICARE, OTHER, SELFPAY ==
--- NOTE | 2023-11-30 12:52 | US_ITS ---
INDICATION: Abnormal uterine and vaginal bleeding, unspecified EXAMINATION: Ultrasound US Pelvis Non-OB Complete TECHNIQUE: Transabdominal pelvic ultrasound was performed. The exam is limited without endovaginal study. Grayscale, spectral waveform, and color flow Doppler evaluation of the adnexa. COMPARISON: No relevant prior comparison study available FINDINGS: UTERUS: Anteverted. The uterus measures 5.4 x 4.1 x 2 cm. There is no uterine mass. The endometrial stripe measures 3.2 mm in AP diameter which is within normal limits. There is minimal fluid within the endometrial cavity. Nabothian cyst is seen at the cervix. RIGHT OVARY: Not visualized due to overlying bowel gas. LEFT OVARY: Not visualized due to overlying bowel gas. FREE FLUID: None. US/Pelvic (Non ) IMPRESSION: 1. Nonspecific minimal fluid within the endometrial canal. 2. Nabothian cyst in the cervix. 3. Nonvisualization both ovaries. Electronically Signed: Harsh Almanzar MD at 16:01 EST ,
--- OUTSIDE RECORDS SUMMARY | 2023-11-30 14:02 | XMS RPT_ITS | CCD ---
Author Name Unknown Address [address] [place] [address] Organization [facility] Care Team Providers Care Stock Control Clerk Name Role Phone RIVER STEVEN, DR VILLEDA Primary Care Physician [phone] RIVER STEVEN, DR VILLEDA Primary Care Unavailable [...] 0 Refill(s), 10/11/23 4:14:00 PM EST, Pharmacy: [id number], Acute sinusitis, 167, cm, 10/01/23 16:05:00 EST, Height, 48.6, kg, 10/01/23 16:00:00 EST, Dosing Weight Start Date: 10/01/23 Stop Date: 10/11/23 Status: Ordered fluticasone propionate 0.05 mg/actuat metered dose nasal spray (13 sources) Corticosteroid Start: 07-05-2020 take 1 dose nasal route once daily fluticasone 50 mcg/inh NASAL spray Dose = 2 spray(s), Nostril, each, qDay, # 3 EA, 1 Refill(s), Pharmacy: [facility], 163, cm, 07/05/20 16:42:00 EDT, Height, kg, 07/05/20 16:42:00 EDT, Dosing Weight Start Date: 07/05/20 Status: Ordered fluticasone 50 mcg/inh NASAL spray (7 sources) Start: 07-05-2020 take 1 dose nasal route once daily fluticasone 50 mcg/inh NASAL spray Dose = 2 spray(s), Nostril, each, qDay, # 3 EA, 1 Refill(s), Pharmacy: [facility], 163, cm, 07/05/20 16:42:00 EDT, Height, kg, 07/05/20 16:42:00 EDT, Dosing Weight Start Date: 07/05/20 Status: Ordered furosemide 20 mg oral tablet (10 sources) Loop Diuretic Start: 07-25-2021 Lasix 20 mg oral tablet Dose : 20 mg = 1 tab(s), Oral, qDay, # 90 tab(s), 1 Refill(s), [facility]: [facility], 162.5, cm, 07/25/21 16:44:00 EDT, Height, [...] 12:40-0400 diastolic 90 mm[Hg] LAUREN REYNOLDS MD [address] [place] [address] 06-19-2022 12:40-0400 Heart rate 48 /min LAUREN REYNOLDS MD [address] 06-19-2022 12:40-0400 Respiratory rate 16 /min LAUREN REYNOLDS MD [address] 06-19-2022 12:40-0400 systolic 170 mm[Hg] LAUREN REYNOLDS MD [address] 06-19-2022 09:50-0400 Body height 162.6 cm LAUREN REYNOLDS MD [address] [place] [address] 06-19-2022 09:50-0400 Body temperature 97.88 [degF] LAUREN REYNOLDS MD [address] 06-19-2022 09:50-0400 Body weight 49.8 kg LAUREN REYNOLDS MD [address] 06-19-2022 09:50-0400 diastolic 92 mm[Hg] LAUREN REYNOLDS MD [address] 06-19-2022 09:50-0400 Heart rate 49 /min LAUREN REYNOLDS MD [address] 06-19-2022 09:50-0400 Respiratory rate 16 /min LAUREN REYNOLDS MD [facility] 06-19-2022 09:50-0400 systolic 157 mm[Hg] LAUREN REYNOLDS MD [facility] 11-07-2021 15:15-0500 Body temperature 96.44 [degF] KRISTEN BEDOYA MD [facility] 11-07-2021 15:15-0500 Diastolic Blood Pressure NBP 70 1 KRISTEN BEDOYA MD [facility] 11-07-2021 15:15-0500 Heart rate 58 /min KRISTEN BEDOYA MD [facility] 11-07-2021 15:15-0500 Reason For Taking VItal Signs KRISTEN BEDOYA MD [facility] 11-07-2021 15:15-0500 Respiratory rate 14 /min KRISTEN BEDOYA MD [facility] 11-07-2021 15:15-0500 Systolic Blood Pressure NBP 125 1 KRISTEN BEDOYA MD [facility] 11-07-2021 15:00-0500 Diastolic Blood Pressure NBP 81 1 KRISTEN BEDOYA MD [facility] 11-07-2021 15:00-0500 Mean blood pressure 89 mm[Hg] KRISTEN BEDOYA MD [facility] 11-07-2021 15:00-0500 Systolic Blood Pressure NBP 118 1 KRISTEN BEDOYA MD [facility] 11-07-2021 14:43-0500 Body temperature 97.34 [degF] KRISTEN BEDOYA MD [facility] 11-07-2021 14:43-0500 Diastolic Blood Pressure NBP 51 1 KRISTEN BEDOYA MD [facility] 11-07-2021 14:43-0500 Heart rate 54 /min KRISTEN BEDOYA MD [facility] 11-07-2021 14:43-0500 Mean blood pressure 69 mm[Hg] KRISTEN BEDOYA MD [facility] 11-07-2021 14:43-0500 Respiratory rate 16 /min KRISTEN BEDOYA MD [facility] 11-07-2021 14:43-0500 Systolic Blood Pressure NBP 123 1 KRISTEN BEDOYA MD [facility] 11-07-2021 14:31-0500 Heart rate 57 /min KRISTEN BEDOYA MD [facility] 11-07-2021 14:31-0500 Mean blood pressure 85 mm[Hg] KRISTEN BEDOYA MD [facility] 11-07-2021 13:43-0500 Body temperature 97.52 [degF] KRISTEN BEDOYA MD [facility] 11-07-2021 13:30-0500 Body temperature 96.93 [degF] KRISTEN BEDOYA MD [facility] 11-07-2021 13:25-0500 Body temperature 96.6 [degF] KRISTEN BEDOYA MD [facility] 11-07-2021 13:20-0500 Body temperature 97.05 [degF] KRISTEN BEDOYA MD [facility] 11-07-2021 10:35-0500 Body height 163.8 cm KRISTEN BEDOYA MD [facility] 11-07-2021 10:35-0500 Body weight 50.8 kg KRISTEN BEDOYA MD [facility] 11-07-2021 10:35-0500 Diastolic blood pressure 85 mm[Hg] KRISTEN BEDOYA MD [facility] 11-07-2021 10:35-0500 Heart rate 69 /min KRISTEN EBDOYA MD [facility] 11-07-2021 10:35-0500 Mean blood pressure 97 mm[Hg] KRISTEN BEDOYA MD [facility] 11-07-2021 10:35-0500 Systolic blood pressure 122 mm[Hg] KRISTEN BEDOYA MD [facility] 10-31-2021 13:31-0500 Body height 164 cm KRISTEN BEDOYA MD [facility] 10-31-2021 13:31-0500 Body temperature 96.8 [degF] KRISTEN BEDOYA MD [facility] 10-31-2021 13:31-0500 Body weight 51.9 kg KRISTEN BEDOYA MD [facility] 10-31-2021 13:31-0500 Body weight 19.3 kg/m2 KRISTEN BEDOYA MD [facility] 10-31-2021 13:31-0500 diastolic 79 mm[Hg] KRISTEN BEDOYA MD [facility] 10-31-2021 13:31-0500 Heart rate 72 /min KRISTEN BEDOYA MD [facility] 10-31-2021 13:31-0500 systolic 128 mm[Hg] KRISTEN BEDOYA MD [facility] Encounters Encounter Date Encounter Type Care Provider Facility Start: 10-05-2023 End: 10-06-2023 ambulatory LINDEN JONES MD Facility:B Start: 10-05-2023 End: 10-05-2023 Patient encounter procedure LINDEN JONES MD [facility] Start: 08-07-2023 End: 08-08-[address] CHRISTIANA HOLMAN DO Facility:B Start: 08-07-2023 End: 08-07-[address] CHRISTIANA HOLMAN DO [facility] Start: 06-30-2023 End: 07-01-2023 ambulatory KRISTEN BEDOYA MD Facility:A Start: 06-30-2023 End: 06-30-2023 Patient encounter procedure KRISTEN BEDOYA MD [facility] Start: 06-21-2023 End: 06-22-2023 ambulatory KRISTEN BEDOYA MD Facility:B Start: 06-21-2023 End: 06-21-2023 Patient encounter procedure KRISTEN BEDOYA MD [facility] Start: 06-20-2023 End: 06-21-[address] CHRISTIANA HOLMAN DO Facility:B Start: 06-11-2023 End: 06-12-2023 ambulatory KRISTEN BEDOYA MD Facility:B Start: 06-11-2023 End: 06-11-2023 Patient encounter procedure KRISTEN BEDOYA MD [facility] Start: 01-23-2023 End: 01-24-[address] CHRISTIANA HOLMAN DO Facility:B Start: 01-23-2023 End: 01-23-[address] CHRISTIANA HOLMAN DO [facility] Start: 12-09-2022 End: 12-10-2022 ambulatory KRISTEN BEDOYA MD Facility:A Start: 12-09-2022 End: 12-09-2022 Patient encounter procedure KRISTEN BEDOYA MD [facility] Start: 11-30-2022 End: 12-05-2022 ambulatory KRISTEN BEDOYA MD Facility:B Start: 11-30-2022 End: 12-04-2022 Outreach Lab KRISTEN BEDOYA MD [facility] Start: 09-02-2022 End: 09-02-2022 Patient encounter procedure KRISTEN BEDOYA MD [facility] Start: 08-26-2022 End: 08-30-2022 Outreach Lab KRISTEN BEDOYA MD [facility] Start: 06-19-2022 End: 06-19-2022 SAME DAY STAY LAUREN REYNOLDS MD [facility] Start: 06-03-2022 End: 06-03-2022 Patient encounter procedure KRISTEN BEDOYA MD [facility] Start: 01-17-2022 End: 01-17-[address] CHRISTIANA HOLMAN DO [facility] Start: 11-25-2021 End: 11-25-2021 Patient encounter procedure KRISTEN BEDOYA MD [facility] Start: 11-07-2021 End: 11-07-2021 SAME DAY STAY KRISTEN BEDOYA MD [facility] Start: 10-31-2021 End: 10-31-2021 Admission to establishment KRISTEN BEDOYA MD [facility] Start: 10-16-2021 End: 10-16-2021 Patient encounter procedure KRISTEN BEDOYA MD [facility] Start: 09-26-2021 End: 09-26-[address] CHRISTIANA HOLMAN DO [facility] Start: 09-19-2021 End: 09-19-[address] CHRISTIANA HOLMAN DO [facility] Start: 09-18-2021 End: 09-22-[address] CHRISTIANA HOLMAN DO [facility] Procedures Date Procedure Procedure Detail Performing [...] [Moderna COVID-19 Vaccine] DR CHRISTIANA HOLMAN DO [facility] 02-04-2021 SARS-CoV-2 (COVID-19 ) mRNA-[address] CHRISTIANA HOLMAN DO [facility] Payers Date Payer Category Payer Medicare [id number] 2022 Private Health Insurance [id number] 1955 Unknown [id number] 2.16.8 [id number] 1955 Unknown [id number] 2.16.8 [id number] 1955 Unknown [id number] 2.16.8 [id number] 1955 Unknown [id number] 2.16.8 [id number] 1955 Unknown [id number] 2.16.8 [id number] 1955 Unknown [id number] 2.16.8 [id number] 1955 Unknown [id number] 2.16.8 [id number] 1955 Unknown [id number] 2.16.8 [id number] 1955 Unknown [id number] 2.16.8 [id number] Social History Date Type Detail Facility Start: 11-14-2018 End: 10-31-2021 Ex-smoker (finding) [facility] [place] Sex Assigned At Female [facility] Functional Status Date Assessment Result Facility 06-19-2022 Functional Status Ambulating in room [facility] 06-19-2022 Functional Status Maintained [facility] spital Mental Status Date Assessment Result Facility 06-19-2022 Mental Status Orientation Oriented x 4 [facility] 06-19-2022 Mental Status [facility] 06-19-2022 Mental Status [facility] Clinical Notes 11-07-2021 to 06-11-2023 LaboratoryLaboratoryLaboratoryLaboratoryLaboratoryLaboratoryLaboratoryLaboratory LaboratoryLaboratoryLaboratoryRadiologyLaboratoryRadiologyLaboratoryLaboratoryLa [...] 06/11/2023 5:07:36 PM Ordering Provider: KRISTEN BEDOYA [facility] 12-01-2022 Note Pathology report verified by [facility] Screened by: STEVE CHOWDHURY Electronically signed by CALVIN BALTAZAR Sign-Out Date: 12/02/2022 11:14 Performing Lab: [address] Pathology Dept [facility] 12-01-2022 Note Pathology report verified by [facility] Screened by: STEVE CHOWDHURY Electronically signed by CALVIN BALTAZAR Sign-Out Date: 12/02/2022 11:14 Performing Lab: [address] Pathology Dept [facility] 12-01-2022 Note Pathology report verified by [facility] Screened by: STEVE CHOWDHURY Electronically signed by CALVIN BALTAZAR Sign-Out Date: 12/02/2022 11:14 Performing Lab: [address] Pathology Dept [facility] 12-01-2022 Note Pathology report verified by [facility] Screened by: STEVE CHOWDHURY Electronically signed by CALVIN BALTAZAR Sign-Out Date: 12/02/2022 11:14 Performing Lab: [place] [id number] [facility] Pathology Dept [facility] 12-01-2022 Note Pathology report verified by [facility] Screened by: STEVE CHOWDHURY Electronically signed by CALVIN BALTAZAR Sign-Out Date: 12/02/2022 11:14 Performing Lab: [facility], [address] [place] [address] Pathology Dept [facility] 06-19-2022 Hospital Discharg e instructions Patient [...] the past. Discuss driving restrictions with your algebra tutor. FOLLOW UP Follow up with the Pacemaker [...] sends information from the device to your algebra tutor (heart doctor) office. How will I get [...] where you sleep. The monitor will automatically olive picker heart signals and send the information [...] you have questions. [facility]: [phone] Ask for the Device Clinic or patrick-in extension [phone] or [phone] when prompted. Device Clinic Location: [facility] (not the physician office building). Enter the [facility] and take the elevators to the 2nd [...] Your device card will tell you the vice president underwriting. Using the search box: [employer]: Georgi Communicator quick start oPatient Help: [...] Up Care 05/21/2022 12:38:20 With:DEVICE CLINIC Address: [address] [place] [address] [address] [address]- [phone] When:09/18/2022 14:30:00 [facility] 06-19-2022 Summary of episod e note Discharge Instructions Thank you for allowing [facility] to assist you with your healthcare needs. The following is important discharge information regarding your hospital visit. Your Care Team CHRISTIANA HOLMAN DO What to do next Scheduled Follow-Up Appointments Appointment Type When With Where Contact InformationPC OV 08/07/2022 03:00 PM EST CHRISTIANA HOLMAN DO [address] [id number] URO Off Proc Cysto 09/02/2022 09:00 AM EST KRISTEN BEDOYA MD [facility] CV Office Procedure ILR 09/18/2022 02:30 PM EST [facility] CV OV 05/20/2023 04:15 PM EDT [facility] Follow Up Appointments Follow Up with DEVICE CLINIC When 09/18/2022 02:30 PM EST Where: [address] [place] [address] [id number]- [phone] The Following Activity and Diet Have Been [...] the past. Discuss driving restrictions with your algebra tutor. FOLLOW UP Follow up with the Pacemaker [...] sends information from the device to your algebra tutor (heart doctor) office. How will I get [...] where you sleep. The monitor will automatically olive picker heart signals and send the information [...] you have questions. [facility]: [phone] Ask for the Device Clinic or patrick-in extension [phone] or [phone] when prompted. Device Clinic Location: [facility] (not the physician office building). [facility] and take the elevators to the 2nd [...] Your device card will tell you the vice president underwriting. Using the search box: [employer]: Georg[employer] Communicator quick start o Patient Help: [...] to receive it can visit one of [facility] vaccine clinics. There are many vaccine clinic locations within the [facility]. For locations and available times, please visit [email or web address] hio.[email or web address] It is important to note that some COVID mobile vaccine clinics are held outdoors and may be canceled in rainy or stormy conditions. To learn more about pediatric vaccinations (ages 5-11), we invite you to visit the [facility] webpage. https://www.[email or web address].org/p ages/6852-Ifkof-Geytskjucmy-Freq uvsbyh-Themi-Xghjflbtd.html To learn more about the COVID-19 vaccine, we invite you to visit the [employer] website for a list of frequently asked questions. [email or web address] [email or web address]-[email or web address]-Hboshea-V requently_[email or web address]-Questions.pdf [facility] Patient Portal Access Instructions: Stay connected with your healthcare team and access your personal medical information anytime with the [facility] Patient Portal.If you would like a full copy of your medical records, please contact the [facility] Medical Records Department, Wednesday through Wednesday between 8a.m. and 4:30p.m. Please follow the directions below to access the portal: 1.Access the email account you provided upon registration to the hospital.2.Look for an invitation email from [facility].3.Open the email and access the invitation link: Accept Invitation to [facility]4.Fill in the required castellano to create your account. Sign into www.[employer] with your username and password that you [...] you will allow to register on the [facility] Patient Portal for access to your information. You can also access the [facility] Patient Portal on the [employer] mackenzie. Simply click on Health Records under [...] Call your local pharmacy or go to [email or web address] to find one close to you.3.Make use of household items: Use cat litter or old coffee grounds to dispose medications if other options are not available. Mix your drugs with these household products, seal them in an airtight container and throw it into the garbage. Call [facility]: [phone] to be sure your drugs can be [...] aware that I should contact my doctor. Patient/Pipe [employer] Signature: Date/Time: Relationship to Patient: Witness Name/Signature: Date/Time: [facility] 06-19-2022 Discharge summary Date of Service 06/19/2022 [...] the other lasting about 15 minutes. 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 [...] When 09/18/2022 02:30 PM EST Where: [address] [place] [address] [address] [address]- [phone] Follow Up Labs/Studies Discharge Labs No Follow-up Labs Discharge Studies No Follow-up Studies Discharge Diet no change Discharge Activity Discharge Activity - Ordered -- May Shower, no restrictions, 06/19/22 12:39:00 EDT Condition on Discharge stable Discharge Disposition Home Information Provided To patient Digitally Signed by LUAREN REYNOLDS MD on 06/19/2022 01:02 PM [facility] 11-07-2021 Hospital Discharg e instructions Patient Education 11/07/2021 15:33:45 [facility] Template (06/2018) (CUSTOM) [facility] SAME DAY SURGERY DISCHARGE INSTRUCTIONS PLEASE FOLLOW [...] us better serve our patients. Form: 1522 (93609) R: 01/03 Follow Up Care 10/27/2021 07:52:19 With:KRISTEN BEDOYA MD, [facility] Address: [phone] When: Unknown Comments:Office will call to schedule follow up appointment. [facility] Evaluation + Plan note Future Appointments Appointment Date:10/06/2021 09:15:00 AM Scheduled Provider: Location:[facility] Appointment Type:CV Remote Procedure HM Appointment Date:01/16/2022 04:40:00 PM Scheduled Provider:CHRISTIANA HOLMAN DO Location:[facility] Appointment Type:PC OV Appointment Date:02/05/2022 04:30:00 PM Scheduled Provider: Location:[facility] Appointment Type:CV OV Future Scheduled TestsMagnesium Level 07/25/21Thyroid Antibodies 07/25/21Thyroid Stimulating Hormone 07/25/21Free T4 07/25/21A1C Hemoglobin 07/25/21Complete Blood Count 07/25/21Fr T3 07/25/21Lipid Profile 07/25/21Complete Metabolic Panel 07/25/21 [facility] Evaluation + Plan note Future Appointments Appointment Date:10/22/2021 08:10:00 AM Scheduled Provider:KRISTEN BEDOYA MD Location:UROLOGY Appointment Type:URO Off Proc Cysto Appointment Date:01/08/2022 03:15:00 PM Scheduled Provider: Location:[facility] Appointment Type:CV Office Procedure ILR Appointment Date:01/16/2022 04:40:00 PM Scheduled Provider:CHRISTIANA HOLMAN DO Location:[facility] Appointment Type:PC OV Appointment Date:02/05/2022 04:30:00 PM Scheduled Provider: Location:[facility] Appointment Type:CV OV Appointment Date:04/09/2022 10:00:00 AM Scheduled Provider: Location:[facility] Appointment Type:CV Remote Procedure HM Future Scheduled TestsMagnesium Level 07/25/21Thyroid Antibodies 07/25/21Thyroid Stimulating Hormone 07/25/21Free T4 07/25/21A1C Hemoglobin 07/25/21Complete Blood Count 07/25/21Free T3 07/25/21Lipid Profile 07/25/21Complete Metabolic Panel 07/25/21 [facility] Evaluation + Plan note Future [...] 07/25/21Complete Metabolic Panel 07/25/21Complete Metabolic Panel 10/24/21 [facility] Evaluation + Plan note Future Appointments Appointment Date:01/08/2022 03:15:00 PM Scheduled Provider: Location:[facility] Appointment Type:CV Office Procedure ILR Appointment Date:01/16/2022 04:40:00 PM Scheduled Provider:CHRISTIANA HOLMAN DO Location:[facility] Appointment Type:PC OV Appointment Date:02/05/2022 04:30:00 PM Scheduled Provider: Location:[facility] Appointment Type:CV OV Appointment Date:02/25/2022 10:00:00 AM Scheduled Provider:KRISTEN BEDOYA MD Location:UROLOGY Appointment Type:URO Off Proc Cysto Appointment Date:04/09/2022 10:00:00 AM Scheduled Provider: Location:[facility] Appointment Type:CV Remote Procedure HM Future Scheduled TestsMagnesium Level 07/25/21Thyroid Antibodies 07/25/21Thyroid Stimulating Hormone 07/25/21Thyroid Stimulating Hormone 10/24/21Free T4 07/25/21Pathology Non-Mail Teller Request 02/25/22A1C Hemoglobin 07/25/21A1C Hemoglobin 10/24/21Complete Blood Count 07/25/21Complete Blood Count 10/24/21Free T3 07/25/21Lipid Profile 07/25/21Complete Metabolic Panel 07/25/21Complete Metabolic Panel 10/24/21 [facility] Evaluation + Plan note Future Appointments Appointment Date:01/30/2022 03:00:00 PM Scheduled Provider:CHRISTIANA HOLMAN DO Location:[facility] Appointment Type:PC OV Appointment Date:02/05/2022 02:45:00 PM Scheduled Provider: Location:[facility] Appointment Type:CV OV Appointment Date:02/25/2022 10:00:00 AM Scheduled Provider:KRISTEN BEDOYA MD Location:UROLOGY Appointment Type:URO Off Proc Cysto Appointment Date:04/09/2022 10:00:00 AM Scheduled Provider: Location:[facility] Appointment Type:CV Remote Procedure HM Future Scheduled TestsPathology Non-Mail Teller Request 02/25/22Magnesium Level 01/09/22Thyroid Antibodies 07/25/21Thyroid Stimulating Hormone 07/25/21Thyroid Stimulating Hormone 01/09/22Free T4 01/09/22A1C Hemoglobin 07/25/21A1C Hemoglobin 01/09/22Complete Blood Count 07/25/21Complete Blood Count 01/09/22Free T3 01/09/22Lipid Profile 07/25/21Complete Metabolic Panel 07/25/21Complete Metabolic Panel 01/09/22 [facility] Evaluation + Plan note Future Appointments Appointment Date:06/19/2022 08:00:00 AM Scheduled Provider: Location:Heart Lab Appointment Type:EP Event Recorder Insertion Appointment Date:08/07/2022 03:00:00 PM Scheduled Provider:CHRISTIANA HOLMAN DO Location:[facility] Appointment Type:PC OV Appointment Date:09/18/2022 02:30:00 PM Scheduled Provider: Location:[facility] Appointment Type:CV Office Procedure ILR Appointment Date:05/20/2023 04:15:00 PM Scheduled Provider: Location:[facility] Appointment Type:CV OV Future Scheduled TestsPathology Non-Mail Teller Request 02/25/22Pathology Non-Mail Teller Request 09/02/22Thyroid Antibodies 07/25/21Thyroid Stimulating Hormone 07/25/21A1C Hemoglobin 07/25/21Complete Blood Count 07/25/21Complete Blood Count 01/09/22Lipid Profile 07/25/21Complete Metabolic Panel 07/25/21 [facility] Evaluation + Plan note Future Appointments Appointment Date:08/07/2022 03:00:00 PM Scheduled Provider:CHRISTIANA HOLMAN DO Location:[facility] Appointment Type:PC OV Appointment Date:09/02/2022 09:00:00 AM Scheduled Provider:KRISTEN BEDOYA MD Location:UROLOGY Appointment Type:URO Off Proc Cysto Appointment Date:09/18/2022 02:30:00 PM Scheduled Provider: Location:[facility] Appointment Type:CV Office Procedure ILR Appointment Date:12/17/2022 09:30:00 AM Scheduled Provider: Location:[facility] Appointment Type:CV Remote Procedure HM Appointment Date:05/20/2023 04:15:00 PM Scheduled Provider: Location:[facility] Appointment Type:CV OV Future Scheduled TestsPathology Non-Mail Teller Request 02/25/22Pathology Non-Mail Teller Request 09/02/22Thyroid Antibodies 07/25/21Thyroid Stimulating Hormone 07/25/21A1C Hemoglobin 07/25/21Complete Blood Count 07/25/21Complete Blood Count 01/09/22Lipid Profile 07/25/21Complete Metabolic Panel 07/25/21 [facility] Evaluation + Plan note Future [...] CAN Appointment Type:CV OV Future Scheduled TestsPathology Non-Mail Teller Request 02/25/22Pathology Non-Mail Teller Request 09/02/22Complete Blood Count 01/09/22 [facility] Evaluation + Plan note Future Appointments [...] CAN Appointment Type:CV OV Future Scheduled TestsPathology Non-Mail Teller Request 02/25/22Pathology Non-Mail Teller Request 09/02/22Pathology Non-Mail Teller Request 12/01/22Complete Blood Count 01/09/22 [facility] Evaluation + Plan note Future [...] CAN Appointment Type:CV OV Future Scheduled TestsPathology Non-Mail Teller Request 02/25/22Pathology Non-Mail Teller Request 09/02/22Complete Blood Count 01/09/22 [facility] Evaluation + Plan note Future Appointments Appointment Date:12/23/2022 09:30:00 AM Scheduled Provider: Location:[facility] Appointment Type:CV Remote Procedure HM Appointment Date:02/05/2023 03:00:00 PM Scheduled Provider:CHRISTIANA HOLMAN DO Location:[facility] Appointment Type:PC OV Follow Up Appointment Date:05/20/2023 04:00:00 PM Scheduled Provider: Location:[facility] Appointment Type:CV Office Procedure ILR Appointment Date:05/20/2023 04:15:00 PM Scheduled Provider: Location:[facility] Appointment Type:CV OV Future Scheduled TestsPathology Non-Mail Teller Request 02/25/22Pathology Non-Mail Teller Request 09/02/22Pathology Non-Mail Teller Request 06/11/23Complete Blood Count 01/09/22US Renal 06/11/23 [facility] Evaluation + Plan note Future Appointments Appointment Date:02/05/2023 03:00:00 PM Scheduled Provider:CHRISTIANA HOLMAN DO Location:[facility] Appointment Type:PC OV Follow Up Appointment Date:02/15/2023 10:00:00 AM Scheduled Provider: Location:[facility] Appointment Type:CV OV Appointment Date:02/15/2023 10:15:00 AM Scheduled Provider: Location:[facility] Appointment Type:CV Office Procedure ILR Appointment Date:05/17/2023 10:45:00 AM Scheduled Provider: Location:[facility] Appointment Type:CV Remote Procedure HM Appointment Date:06/30/2023 09:00:00 AM Scheduled Provider:KRISTEN BEDOYA MD Location:UROLOGY Appointment Type:URO Off Proc Cysto Future Scheduled TestsPathology Non-Mail Teller Request 02/25/22Pathology Non-Mail Teller Request 09/02/22Pathology Non-Mail Teller Request 06/11/23Thyroid Stimulating Hormone 12/18/22A1C Hemoglobin 12/18/22Complete Blood Count 12/18/22Lipid Profile 12/18/22Complete Metabolic Panel 12/18/22US Renal 06/11/23 [facility] Evaluation + Plan note Future Appointments Appointment Date:06/23/2023 08:15:00 AM Scheduled Provider: Location:[facility] Appointment Type:CV Remote Procedure HM Appointment Date:06/30/2023 09:00:00 AM Scheduled Provider:KRISTEN BEDOYA MD Location:UROLOGY Appointment Type:URO Off Proc Cysto Appointment Date:08/12/2023 03:30:00 PM Scheduled Provider:CHRISTIANA HOLMAN DO Location:[facility] Appointment Type:PC OV Future Scheduled TestsPathology Non-Mail Teller Request 09/02/22Pathology Non-Mail Teller Request 06/11/23Thyroid Stimulating Hormone 08/08/23A1C Hemoglobin 08/08/23Complete Blood Count 08/08/23Lipid Profile 08/08/23Complete Metabolic Panel 08/08/23 [facility] Evaluation + Plan note Future Appointments Appointment Date:06/23/2023 08:15:00 AM Scheduled Provider: Location:[facility] Appointment Type:CV Remote Procedure Appointment Date:06/30/2023 09:00:00 AM Scheduled Provider:KRISTEN BEDOYA MD Location:UROLOGY Appointment Type:URO Off Proc Cysto Appointment Date:08/12/2023 03:30:00 PM Scheduled Provider:CHRISTIANA HOLMAN DO Location:[facility] Appointment Type:PC OV Future Scheduled TestsPathology Non-Mail Teller Request 09/02/22Thyroid Stimulating Hormone 08/08/23A1C Hemoglobin 08/08/23Complete Blood Count 08/08/23Lipid Profile 08/08/23Complete Metabolic Panel 08/08/23 [facility] Evaluation + Plan note Future Appointments Appointment Date:08/12/2023 03:30:00 PM Scheduled Provider:CHRISTIANA HOLMAN DO Location:[facility] Appointment Type:PC OV Appointment Date:11/10/2023 10:00:00 AM Scheduled Provider: Location:[facility] Appointment Type:CV Remote Procedure HM Appointment Date:12/29/2023 08:00:00 AM Scheduled Provider:KRISTEN BEDOYA MD Location:UROLOGY Appointment Type:URO Off Proc Cysto Future Scheduled TestsPathology Non-Mail Teller Request 12/30/23Pathology Non-Mail Teller Request 09/02/22Thyroid Stimulating Hormone 08/08/23A1C Hemoglobin 08/08/23Complete Blood Count 08/08/23Lipid Profile 08/08/23Complete Metabolic Panel 08/08/23 [facility] Evaluation + Plan note Future Appointments Appointment Date:08/12/2023 03:30:00 PM Scheduled Provider:CHRISTIANA HOLMAN DO Location:[facility] Appointment Type:PC OV Appointment Date:11/10/2023 10:00:00 AM Scheduled Provider: Location:[facility] Appointment Type:CV Remote Procedure HM Appointment Date:12/29/2023 08:00:00 AM Scheduled Provider:KRISTEN BEDOYA MD Location:UROLOGY Appointment Type:URO Off Proc Cysto Future Scheduled TestsPathology Non-Mail Teller Request 12/30/23Pathology Non-Mail Teller Request 09/02/22 [facility] Evaluation + Plan note Future Appointments Appointment Date:11/10/2023 10:00:00 AM Scheduled Provider: Location:[facility] Appointment Type:CV Remote Procedure HM Appointment Date:12/29/2023 08:00:00 AM Scheduled Provider:KRISTEN BEDOYA MD Location:UROLOGY Appointment Type:URO Off Proc Cysto Appointment Date:02/11/2024 03:30:00 PM Scheduled Provider:CHRISTIANA HOLMAN DO Location:[facility] Appointment Type:PC OV Future Scheduled TestsPathology Non-Mail Teller Request 12/30/23Thyroid Stimulating Hormone 02/10/24A1C Hemoglobin 02/10/24Complete Blood Count 02/10/24Lipid Profile 02/10/24Complete Metabolic Panel 02/10/24 [facility] Hospital course Narrative No data available for this section [facility] Hospital Discharge instructions No data available for this section [facility] Note LAUREN REYNOLDS MD: SIGN, VERIFY Event Display: Insert Event Recorder Authored Date: [facility] Progress note No data available for this section [facility] Summary Purpose Family History No Family History Records Found Advance Directives No Advanced Directives Records Found Additional Source Comments Care Team (unrecognized sect ion and content) Personnel Name: CHRISTIANA HOLMAN DO Address: [address] [place] [address]- Care Team Personnel Name: CHRISTIANA HOLMAN DO Position: P4 Physician - Primary Care Member Role: Primary Care Physician Address: Address: [address] [place] [address] Name: LAUREN REYNOLDS MD Position: P4 Physician - Cardiology Member Role: Health Plan Manager Address: Address: [address] [place] [address] [address] [address]- Care Team Related Persons Name: ELISSA AG Name: NORMA VIDAL Address: [address] [place], [place] [id number] [place] Care Team Personnel Name: CHRISTIANA HOLMAN DO Position: P4 Physician - Primary Care Member Role: Primary Care Physician Address: Address: [address] [place] [address] Name: LAUREN REYNOLDS MD Position: P4 Physician - Cardiology Member Role: Health Plan Manager Address: Address: [address] [place] [address] Care Team Related Persons Name: ELISSA AG Name: NOMRA VIDAL Address: [address] [place], [place] [id number] [place] Care Team Personnel Name: CHRISTIANA HOLMAN DO Position: P4 Physician - Primary Care Member Role: Primary Care Physician Address: Address: [address] [place] [address] Name: LAUREN REYNOLDS MD Position: P4 Physician - Cardiology Member Role: Health Plan Manager Address: Address: [facility] [address] [place], [place] [id number]- [place] Care Team Related Persons Name: ELISSA AG Name: NORMA VIDAL Address: [address] [facility] [place] [phone] [place] Care Team Personnel Name: CHRISTIANA HOLMAN DO Position: P4 Physician - Primary Care Member Role: Primary Care Physician Address: Address: [address] [place] [address]- Name: LAUREN REYNOLDS MD Position: P4 Physician - Cardiology Member Role: Health Plan Manager Address: Address: [address] [place] [address]- Care Team Related Persons Name: ELISSA AG Name: NORMA VIDAL Address: [address] [place], [place] [id number] [place] Care Team Personnel Name: CHRISTIANA HOLMAN DO Position: P4 Physician - Primary Care Member Role: Primary Care Physician Address: Address: [address] [place] [address]- Name: LAUREN REYNOLDS MD Position: P4 Physician - Cardiology Member Role: Health Plan Manager Address: Address: [address] [place] [address]- Care Team Related Persons Name: ELISSA AG Name: NORMA VIDAL Address: [address] [place], [place] [phone] [place] Care Team Personnel Name: CHRISTIANA HOLMAN DO Position: P4 Physician - Primary Care Member Role: Primary Care Physician Address: Address: [address] [place] [address]- Name: LAUREN REYNOLDS MD Position: P4 Physician - Cardiology Member Role: Health Plan Manager Address: Address: [address] [place] [address] [address] [id number]- Care Team Related Persons Name: ELISSA AG Name: NORMA VIDAL Address: [address] [place] [place] [id number] [place] Care Team Personnel Name: CHRISTIANA HOLMAN DO Position: P4 Physician - Primary Care Member Role: Primary Care Physician Address: Address: [address] [place] [address]- Name: LAUREN REYNOLDS MD Position: P4 Physician - Cardiology Member Role: Health Plan Manager Address: Address: [facility] [address] [id number]- [place] Care Team Related Persons Name: ELISSA AG Name: NORMA VIDAL Address: [address] [place] [phone] [place] Care Team (unrecognized sect ion and content) Care Team Personnel Name: CHRISTIANA HOLMAN DO Position: P4 Physician - Primary Care Med Service: Active Provider Member Role: Primary Care Physician Address: Address: [address] [place] [address]- Name: LAUREN REYNOLDS MD Position: P4 Physician - Cardiology Med Service: Active Provider Member Role: Health Plan Manager Address: Address: [facility] [place] [id number]- [place] Care Team Related Persons Name: ELISSA AG Name: NORMA VIDAL Address: [address] [place], [place] [phone] [place] Care Team Personnel Name: CHRISTIANA HOLMAN DO Position: P4 Physician - Primary Care Med Service: Active Provider Member Role: Primary Care Physician Address: Address: [address] [place] [address] [place] Name: LAUREN REYNOLDS MD Position: P4 Physician - Cardiology Med Service: Active Provider Member Role: Health Plan Manager Address: Address: [address] [facility] [place] [id number]- [place] Care Team Related Persons Name: ELISSA AG Name: NORMA VIDAL Address: [address] [place] [place] [phone] [place] Care Team Personnel Name: CHRISTIANA HOLMAN DO Position: P4 Physician - Primary Care Member Role: Primary Care Physician Address: Address: [address] [place] [address]- Name: LAUREN REYNOLDS MD Position: P4 Physician - Cardiology Member Role: Health Plan Manager Address: Address: [address] [place] [address] [place] [id number]- Care Team Related Persons Name: ELISSA AG Name: NORMA VIDAL Address: [address] [place], [place] [phone] [place] Care Team Personnel Name: CHRISTIANA HOLMAN DO Position: P4 Physician - Primary Care Member Role: Primary Care Physician Address: Address: [address] [place] [address]- Name: LAUREN REYNOLDS MD Position: P4 Physician - Cardiology Member Role: Health Plan Manager Address: Address: [address] [place], [place] [phone]- Care Team Related Persons Name: ELISSA AG Name: NORMA VIDAL Address: [address] [place], [place] [phone] [place] Care Team Personnel Name: CHRISTIANA HOLMAN DO Position: P4 Physician - Primary Care Member Role: Primary Care Physician Address: Address: [address] [place] [address]- Name: LAUREN REYNOLDS MD Position: P4 Physician - Cardiology Member Role: Health Plan Manager Address: Address: [address] [place] [address]- Care Team Related Persons Name: ELISSA AG Name: NORMA VIDAL Address: [address] [place], [place] [id number] [place] INFORMATION SOURCE (unrecogn ized section and [...] BE BASED ON THE PRIMARY CLINICAL RECORDS. [facility] [employer] [facility]. provides no warranty or guarantee of the accuracy or completeness of information in this document.
== END | disposition home or self-care (01) ==
LOC: US 12:52
PROVIDERS: Referring Provider Urology; Visit Provider Urology
DX: N93.9 Abnormal uterine and vaginal bleeding, unspecified (principal)
CPT/HCPCS: 76856

== ENCOUNTER → 2024-03-03 | Outpatient (CLI) | payer MEDICARE, OTHER, SELFPAY ==
--- NOTE | 2024-03-03 08:15 | CT_ITS ---
STUDY: LOW DOSE CT LUNG CANCER SCREENING REASON FOR EXAM: Female, 69 years old. Multiple pulmonary nodules RADIATION DOSAGE (If Supplied By Facility): CTDIvol = ( 2.01 ) mGy, DLP = ( 78.76 ) mGycm TECHNIQUE: No contrast was administered. Low dose technique was utilized (average mAS-38 and kVp 120). 1.25 mm axial source images with a slice interval of 1.25-mm were reconstructed in lung windows. 2.5 mm axial source images with a slice interval of 2.5-mm were reconstructed in lung windows. 5.0 mm axial source images with a slice interval of 5.0-mm were reconstructed in soft tissue windows. COMPARISON: Comparison is made with prior examination dated March 02, 2023. NODULES: Stable 4 mm x 4 mm noncalcified nodule in the posterior aspect of the right lower lobe as seen on axial image #27. Stable 7 mm x 3 mm well-defined nodule in the superior aspect of the left lower lobe medially as seen on axial image #143. Stable 8 mm x 5 mm noncalcified nodule in the inferior aspect of the left lower lobe. Stable 4 mm x 3 mm solid noncalcified nodule in the medial aspect of the lingular segment of the left upper lobe. Emphysema: Hyperinflation. Stable emphysematous changes and pleural thickening. This is worse in the apices as well as in the right middle lobe and lateral left upper lobe. Endobronchial lesion: None Aorta: Atherosclerotic calcification. CORONARY ARTERIES: Coronary artery calcification is seen. Heart: Unremarkable Pulmonary artery: Unremarkable Mediastinal nodes: Other chest and abdominal findings: CT/Low Dose CT Lung Screening IMPRESSION: Lung-RADS category 2 - Continue annual screening with LDCT in 12 months. IMPORTANT NOTES FOR USE: ACR Lung-RADS Version 1.1 Assessment Categories Release Date: 2018 Category: Coded 0-4 bases on nodule(s) with highest degree of suspicion. Negative screen is defined as categories 1 and 2; a positive screen is defined as categories 3 and 4. Category 3 and 4A nodules that are unchanged on interval CT should be coded as category 2, and individuals returned to screening in 12 months. Category 4X: Category 3 or 4 nodules with additional imaging findings that increase the suspicion of lung cancer, such as spiculation, GGN that doubles in size in 1 year, enlarged lymph notes, etc. Category Modifiers: S (significant finding unrelated to lung cancer) Electronically Signed: Logan Lawson MD at 10:34 EDT ,
== END | disposition home or self-care (01) ==
LOC: CT 08:15
PROVIDERS: Referring Provider Nurse Practitioner Acute Care; Visit Provider Nurse Practitioner Acute Care
DX: R91.8 Other nonspecific abnormal finding of lung field (principal); Z87.891 Personal history of nicotine dependence
CPT/HCPCS: 71271

== ENCOUNTER → 2025-05-03 | Outpatient (CLI) | payer MEDICARE, OTHER, SELFPAY ==
--- NOTE | 2025-05-03 06:20 | CT_ITS ---
PROCEDURE: CHEST WITH CONTRAST 05/03/2025 REASON FOR EXAM: LUNG NODULES Follow-up examination. TECHNIQUE: CHEST WITH CONTRAST Coronal and Sagittal reconstruction series were provided. CONTRAST: None One or more dose reduction techniques were used (e.g., Automated exposure control, adjustment of the mA and/or kV according to patient size, use of iterative reconstruction technique). RADIATION DOSE SUMMARY: CTDlvol: 8.65 mGy DLP: 178.87 mGycm COMPARISON: Prior study dated March 03 2024. FINDINGS: Hardware: None Lymph nodes: No suspicious lymph nodes are seen. Heart and Vasculature: Coronary artery calcification. Lungs and Airways: 6.3 mm noncalcified nodule in the posterior medial segment of the left lower lobe as seen on axial image number 71 stable 5.5 mm noncalcified nodule in the posterior medial aspect of the right lower lobe as seen on axial image number 72 stable 6.5 mm noncalcified nodule in the posterior lateral aspect of the left lower lobe adjacent to the left hemidiaphragm as seen on axial image number 115 stable 4.3 mm noncalcified nodule in the lateral aspect of the lingula segment of the left upper lobe as seen on axial image number 208. Emphysematous changes. Stable scarring in the lingula segment of the left upper lobe as well as in the right middle lobe. Stable scarring at the lung apices. Pleura: No pleural effusion Upper Abdomen: Unremarkable Bones: Degenerative changes of the thoracic spine. CT/Chest WITH Contrast IMPRESSION: Coronary artery calcification (CAC) is is present Stable examination. 12 month follow-up study recommended. Reading Location: [facility]
--- OUTSIDE RECORDS SUMMARY | 2025-05-03 06:33 | XMS RPT_ITS | CCD ---
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 [facility] Comment on above: Performed By: #### A DIFF, MDW, ANEU, CMP, LIP, CBC, GFR ####[facility] [place], [place] [address] Lymphocyte, Absolute 0.9 10 3/mcL Normal 0.9-4.3 [facility] Comment on above: Performed By: #### A DIFF, MDW, ANEU, CMP, LIP, CBC, GFR ####[facility] [place] [address] Lymphocytes/100 WBC (Bld) 11.6 % Low 20.0-40.0 [facility] Comment on above: Performed By: #### A DIFF, MDW, ANEU, CMP, LIP, CBC, GFR ####[facility] [place], [place] [address] Monocyte, Absolute 0.4 10 3/mcL Normal 0.1-1.4 [facility] Comment on above: Performed By: #### A DIFF, MDW, ANEU, CMP, LIP, CBC, GFR ####[facility] [place], [place] [address] Monocytes/100 WBC (Bld) 5.3 % Normal 2.0-13.0 [facility] Comment on above: Performed By: #### A DIFF, MDW, ANEU, CMP, LIP, CBC, GFR ####[facility] [address] [place], [place] [address] Neutrophils/100 WBC (Bld) 82.5 % High 50.0-75.0 [facility] Comment on above: Performed By: #### A DIFF, MDW, ANEU, CMP, LIP, CBC, GFR ####[facility] [address] [place], [place] [address] .GFRon 04-13-2025 Estimated Glomerular Filtration Rate 75 ml/min/1.73sqm Normal [facility] Comment on above: Result Comment: Stages of Chronic Kidney Disease (CKD) Stage Description eGFR(ml/min/1.73 sq.m.) CKD 1 Normal kidney function or >=90 normal kindney function with possible kidney damage (ex. Proteinuria) CKD 2 Kidney damage with mild loss 60-89 of kidney function CKD 3a Mild to moderate loss of kidney 45-59 function CKD 3b Moderate to severe loss of 30-44 of kindey function CKD 4 Severe loss of kidney function 15-29 CKD 5 Kidney failure <15 Note: (go live 2024) the eGFR calculation was updated to the 2020 CKD-EPI creatinine equation without a race factor to calculate the eGFR results. Performed By: #### A DIFF, MDW, ANEU, CMP, LIP, CBC, GFR ####[facility] [address] [place], [place] [address] .MDWon 04-13-2025 Monocyte Distribution Width 13.69 Normal 0.00-20.00 [facility] Comment on above: Result Comment: For ED adult patients suspected of sepsis, MDW<=20.0 does not rule out sepsis or risk of sepsis Performed By: #### A DIFF, MDW, ANEU, CMP, LIP, CBC, GFR ####[facility] [address] [place], [place] [address] .NEUABSon 04-13-2025 Neutrophil, Absolute 6.1 10 3/mcL Normal 2.3-8.1 [facility] Comment on above: Performed By: #### A DIFFCARLOS, ANEU, CMP, LIP, CBC, GFR ####[facility] [place], [place] [address] CBCon 04-13-2025 Erythrocyte distribution width (RBC) [Ratio] 13.7 % Normal 11.5-15.5 [facility] Comment on above: Performed By: #### A DIFF, W, ANEU, CMP, LIP, CBC, GFR ####[facility] [address] [place], [place] [address] Hematocrit (Bld) [Volume fraction] 42.8 % Normal 34.0-46.0 [facility] Comment on above: Performed By: #### A DIFF MDW, ANEU, CMP, LIP, CBC, GFR ####[place] [address] [place], [place] [address] Hgb 14.5 G/dL Normal 12.0-16.0 [facility] Comment on above: Performed By: #### A DIFFMDW, ANEU, CMP, LIP, CBC, GFR ####[place] [address] [place], [place] [address] MCH (RBC) [Entitic mass] 27.4 pg Normal 27.0-33.0 [facility] Comment on above: Performed By: #### A DIFF, MDW, ANEU, CMP, LIP, CBC, GFR ####[place] [address] [place], [place] [address] MCHC 33.8 G/dL Normal 32.0-36.0 [facility] Comment on above: Performed By: #### A DIFF, W, ANEU, CMP, LIP, CBC, GFR ####[place] [address] [place], [place] [address] MCV (RBC) [Entitic vol] 81.2 fL Normal 80.0-99.0 [facility] Comment on above: Performed By: #### A DIFF, MDW, ANEU, CMP, LIP, CBC, GFR ####[address] [address] Platelet 214 10 3/mcL Normal 150-450 [facility] Comment on above: Performed By: #### A DIFF, CARLOS, ANEU, CMP, LIP, CBC, GFR ####[facility] [address] [place], [place] [address] Platelet mean volume (Bld) [Entitic vol] 7.9 fL Normal 6.6-10.5 [facility] Comment on above: Performed By: #### A DIFF, CARLOS, ANEU, CMP, LIP, CBC, GFR ####[facility] [address] [place] [id number] RBC 5.28 10 6/mcL Normal 4.10-5.30 [facility] Comment on above: Performed By: #### A DIFFCARLOS, ANEU, CMP, LIP, CBC, GFR ####[facility] [address] [place] [id number] WBC 7.4 10 3/mcL Normal 4.5-10.8 [facility] Comment on above: Performed By: #### A CARLOS JIMENEZ, ANEU, CMP, LIP, CBC, GFR ####[facility] [address] [place] [id number] CMPon 04-13-2025 Albumin Level 4.3 G/dL Normal 3.4-4.8 [facility] Comment on above: Performed By: #### A CARLOS JIMENEZ, ANEU, CMP, LIP, CBC, GFR ####[facility] [address] [place] [id number] Albumin/Globulin [Mass ratio] 1.4 {ratio} Normal 1.1-2.5 [facility] Comment on above: Performed By: #### A DIFFCARLOS, ANEU, CMP, LIP, CBC, GFR ####[facility] [place] [id number] ALP [Catalytic activity/Vol] 61 U/L Normal 40-135 [facility] Comment on above: Performed By: #### A DIFF, CARLOS, ANEU, CMP, LIP, CBC, GFR ####[facility] [address] [place] [id number] ALT [Catalytic activity/Vol] 28 U/L Normal 14-59 [facility] Comment on above: Performed By: #### A CARLOS JIMENEZ, ANEU, CMP, LIP, CBC, GFR ####[place] [address] [place] [id number] AST [Catalytic activity/Vol] 25 U/L Normal 10-40 [facility] Comment on above: Performed By: #### A CARLOS JIMENEZ, ANEU, CMP, LIP, CBC, GFR ####[place] [address] [place] [address]87 Bili Total 0.7 mg/dL Normal 0.2-1.0 [facility] Comment on above: Result Comment: Use of this assay is not recommended for patients undergoing treatment with eltrombopag due to the potential for falsely elevated results. Performed By: #### A CARLOS JIMENEZ, ANEU, CMP, LIP, CBC, GFR ####[facility] [address] [place] [address] BUN/Creatinine Ratio 29 ratio High 7-27 [facility] Comment on above: Performed By: #### A CARLOS JIMENEZ, ANEU, CMP, LIP, CBC, GFR ####[place] [address] [place] [address] Calcium [Mass/Vol] 10.0 mg/dL Normal 8.4-10.2 [facility] Comment on above: Performed By: #### A CARLOS JIMENEZ, ANEU, CMP, LIP, CBC, GFR ####[place] [address] Chloride [Moles/Vol] 105 mmol/L Normal 98-107 [facility] Comment on above: Performed By: #### A CARLOS JIMENEZ, ANEU, CMP, LIP, CBC, GFR ####[place] [address] [place] [address] CO2 [Moles/Vol] 30 mmol/L Normal 23-31 [facility] Comment on above: Performed By: #### A CARLOS JIMENEZ, ANEU, CMP, LIP, CBC, GFR ####[place] [address] [place], [place] [address] Creatinine [Mass/Vol] 0.83 mg/dL Normal 0.51-0.95 [facility] Comment on above: Performed By: #### A CARLOS JIMENEZ, ANEU, CMP, LIP, CBC, GFR ####[facility] [address] [place], [place] [address] Electrolyte Balance 8.0 mEq/L Normal 4.0-15.0 [facility] Comment on above: Performed By: #### A CARLOS JIMENEZ, ANEU, CMP, LIP, CBC, GFR ####[facility] [address] [place], [place] [address] Globulin 3.1 G/dL Normal 2.7-4.4 [facility] Comment on above: Performed By: #### A CARLOS JIMENEZ, ANEU, CMP, LIP, CBC, GFR ####[facility] [address] [place] [id number] Glucose [Mass/Vol] 151 mg/dL High 83-110 [facility] Comment on above: Performed By: #### A CARLOS JIMENEZ, ANEU, CMP, LIP, CBC, GFR ####[facility] [address] [place], [place] [address] Potassium [Moles/Vol] 4.1 mmol/L Normal 3.5-5.1 [facility] Comment on above: Performed By: #### A CARLOS JIMENEZ, ANEU, CMP, LIP, CBC, GFR ####[facility] [address] [place], [place] [address] Sodium [Moles/Vol] 143 mmol/L Normal 136-145 [facility] Comment on above: Performed By: #### A CARLOS JIMENEZ, ANEU, CMP, LIP, CBC, GFR ####[facility] [address] [place] [id number] Total Protein 7.4 G/dL Normal 6.4-8.2 [facility] Comment on above: Performed By: #### A CARLOS JIMENEZ, ANEU, CMP, LIP, CBC, GFR ####[facility] [address] [place], [place] [address] Urea nitrogen [Mass/Vol] 24 mg/dL High - [facility] Comment on above: Performed By: #### A DIFF, MDW, ANEU, CMP, LIP, CBC, GFR ####[place] [address] [place], [place] [address] LABORATORYOrdered By: SYSTEM SYSTEM on 04-13-2025 Albumin BCP dye [Mass/Vol] 4.3 G/dL Normal 3.4 - 4.8 G/dL AO ADM SS Albumin/Globulin [Mass ratio] 1.4 {ratio} Normal 1.1 - 2.5 ratio AO ADM SS ALP [Catalytic activity/Vol] 61 U/L Normal 40 - 135 U/L AO ADM SS ALT With P-5'-P [Catalytic activity/Vol] 28 U/L Normal 14 - 59 U/L AO ADM SS AST With P-5'-P [Catalytic activity/Vol] 25 U/L Normal 10 - 40 U/L AO ADM SS Basophils (Bld) [#/Vol] 0.0 103/mcL Normal 0.0 - 0.3 10^3/mcL AO Workflow SS Basophils/100 WBC (Bld) 0.3 % Normal 0.0 - 2.5 % AO Workflow SS Bilirubin [Mass/Vol] 0.7 mg/dL Normal 0.2 - 1 .0 mg/dL AO ADM SS Comment on above: Interpretive Data: U se of this assay is not recommended for patients undergoing treatment with eltrombopag due to the potential for falsely elevated results. Calcium [Mass/Vol] 10.0 mg/dL Normal 8.4 - 10. 2 mg/dL AO ADM SS Chloride [Moles/Vol] 105 mmol/L Normal 98 - 10 7 mmol/L AO ADM SS CO2 [Moles/Vol] 30 mmol/L Normal 23 - 31 mmol/L AO ADM SS Creatinine [Mass/Vol] 0.83 mg/dL Normal 0.51 - 0.95 mg/dL AO ADM SS Electrolyte Balance 8.0 mEq/L Normal 4.0 - 15 .0 mEq/L AO ADM SS Eosinophil, Absolute 0.0 103/mcL Normal 0.0 - 0 .7 10^3/mcL AO Workflow SS Eosinophils/100 WBC (Bld) 0.3 % Normal 0.0 - 6.0 % AO Workflow SS Erythrocyte distribution width (RBC) [Ratio] 13.7 % Normal 11.5 - 15.5 % AO Workflow SS Estimated Glomerular Filtration Rate 75 ml/min/1.73sqm Invalid Interpretation Code AO Chemistry S Comment on above: Interpretive Data: Stages of Chronic Kidney Disease (CKD) Stage Description eGFR(ml/min/1.73 sq.m.) CKD 1 Normal kidney function or >=90 normal kindney function with possible kidney damage (ex. Proteinuria) CKD 2 Kidney damage with mild loss 60-89 of kidney function CKD 3a Mild to moderate loss of kidney 45-59 function CKD 3b Moderate to severe loss of 30-44 of kindey function CKD 4 Severe loss of kidney function 15-29 CKD 5 Kidney failure <15 Note: (go live 2024) the eGFR calculation was updated to the 2020 CKD-EPI creatinine equation without a race factor to calculate the eGFR results. Globulin 3.1 G/dL Normal 2.7 - 4.4 G/dL AO ADM SS Glucose [Mass/Vol] 151 mg/dL High 83 - 110 mg/dL AO ADM SS Hematocrit (Bld) [Volume fraction] 42.8 % Normal 34.0 - 46.0 % AO Workflow SS Hemoglobin (Bld) [Mass/Vol] 14.5 G/dL Normal 12.0 - 16.0 G/dL AO Workflow SS Lipase [Catalytic activity/Vol] 25 U/L Normal 16 - 77 U/L AO ADM SS Lymphocytes (Bld) [#/Vol] 0.9 103/mcL Normal 0.9 - 4.3 10^3/mcL AO Workflow SS Lymphocytes/100 WBC (Bld) 11.6 % Low 20.0 - 40.0 % AO Workflow SS MCH (RBC) [Entitic mass] 27.4 pg Normal 27.0 - 33.0 pg AO Workflow SS MCHC 33.8 G/dL Normal 32.0 - 36.0 G/dL AO Workflow SS MCV (RBC) [Entitic vol] 81.2 fL Normal 80.0 - 99.0 fL AO Workflow SS Monocyte distribution width Auto (Bld) [Entitic vol] 13.69 1 Normal 0.00 - 20.00 AO Workflow SS Comment on above: Result Comment: For ED adult patients suspected of sepsis, MDW<=20.0 does not rule out sepsis or risk of sepsis Monocytes (Bld) [#/Vol] 0.4 103/mcL Normal 0.1 - 1.4 10^3/mcL AO Workflow SS Monocytes/100 WBC (Bld) 5.3 % Normal 2.0 - 13.0 % AO Workflow SS Neutrophils (Bld) [#/Vol] 6.1 103/mcL Normal 2.3 - 8.1 10^3/mcL AO Workflow SS Neutrophils/100 WBC (Bld) 82.5 % High 50.0 - 75.0 % AO Workflow SS Platelet mean volume (Bld) [Entitic vol] 7.9 fL Normal 6.6 - 10.5 fL AO Workflow SS Platelets (Bld) [#/Vol] 214 103/mcL Normal 150 - 450 10^3/mcL AO Workflow SS Potassium [Moles/Vol] 4.1 mmol/L Normal 3.5 - 5.1 mmol/L AO ADM SS Protein [Mass/Vol] 7.4 G/dL Normal 6.4 - 8.2 G/dL AO ADM SS RBC (Bld) [#/Vol] 5.28 106/mcL Normal 4.10 - 5.3 0 10^6/mcL AO Workflow SS Sodium [Moles/Vol] 143 mmol/L Normal 136 - 145 mmol/L AO ADM SS Urea nitrogen [Mass/Vol] 24 mg/dL High 7 - 18 mg/dL AO ADM SS Urea nitrogen/Creatinine [Mass ratio] 29 ratio High 7 - 27 ratio AO ADM SS WBC (Bld) [#/Vol] 7.4 103/mcL Normal 4.5 - 10.8 10^3/mcL AO Workflow SS LIPon 04-13-2025 Lipase Level 25 U/L Normal 16-77 [facility] Comment on above: Performed By: #### A DIFF, MDW, ANEU, CMP, LIP, CBC, GFR ####[facility] [address] [place], [place] [address] .Auto Diffon 02-08-2025 Basophil, Absolute 0.0 10 3/mcL Normal 0.0-0.3 [facility] Comment on above: Performed By: #### G FR, ADIFF, ANEU, CMP, CBC, LIPID, TSH, A1C ####[facility] [address] [place], [place] [address] Basophils/100 WBC (Bld) 0.4 % Normal 0.0-2.5 [facility] Comment on above: Performed By: #### G FR, ADIFF, ANEU, CMP, CBC, LIPID, TSH, A1C ####[facility] [address] [place], [place] [address] Eosinophil, Absolute 0.1 10 3/mcL Normal 0.0-0.7 [facility] Comment on above: Performed By: #### G FR, ADIFF, ANEU, CMP, CBC, LIPID, TSH, A1C ####[facility] [address] [place], [place] [address] Eosinophils/100 WBC (Bld) 1.3 % Normal 0.0-6.0 [facility] Comment on above: Performed By: #### G FR, ADIFF, ANEU, CMP, CBC, LIPID, TSH, A1C ####[facility] [address] [place], [place] [address] Lymphocyte, Absolute 1.1 10 3/mcL Normal 0.9-4.3 [facility] Comment on above: Performed By: #### G FR, ADIFF, ANEU, CMP, CBC, LIPID, TSH, A1C ####[facility] [address] [place], [place] [address] Lymphocytes/100 WBC (Bld) 19.0 % Low 20.0-40.0 [facility] Comment on above: Performed By: #### G FR, ADIFF, ANEU, CMP, CBC, LIPID, TSH, A1C ####[facility] [address] [place], [place] [address] Monocyte, Absolute 0.6 10 3/mcL Normal 0.1-1.4 [facility] Comment on above: Performed By: #### G FR, ADIFF, ANEU, CMP, CBC, LIPID, TSH, A1C ####[facility] [address] [place], [place] [address] Monocytes/100 WBC (Bld) 10.5 % Normal 2.0-13.0 [facility] Comment on above: Performed By: #### G FR, ADIFF, ANEU, CMP, CBC, LIPID, TSH, A1C ####[facility] [address] [place], [place] [address] Neutrophils/100 WBC (Bld) 68.8 % Normal 50.0-75.0 [facility] Comment on above: Performed By: #### G FR, ADIFF, ANEU, CMP, CBC, LIPID, TSH, A1C ####[facility] [place], [place] [address] .GFRon 02-08-2025 Estimated Glomerular Filtration Rate 58 ml/min/1.73sqm Normal [facility] Comment on above: Result Comment: Stages of Chronic Kidney Disease (CKD) Stage Description eGFR(ml/min/1.73 sq.m.) CKD 1 Normal kidney function or >=90 normal kindney function with possible kidney damage (ex. Proteinuria) CKD 2 Kidney damage with mild loss 60-89 of kidney function CKD 3a Mild to moderate loss of kidney 45-59 function CKD 3b Moderate to severe loss of 30-44 of kindey function CKD 4 Severe loss of kidney function 15-29 CKD 5 Kidney failure <15 Note: (go live 2024) the eGFR calculation was updated to the 2020 CKD-EPI creatinine equation without a race factor to calculate the eGFR results. Performed By: #### G FR, ADIFF, ANEU, CMP, CBC, LIPID, TSH, A1C ####[place] [address] [place], [place] [address] .NEUABSon 02-08-2025 Neutrophil, Absolute 4.1 10 3/mcL Normal 2.3-8.1 [facility] Comment on above: Performed By: #### G FR, ADIFF, ANEU, CMP, CBC, LIPID, TSH, A1C ####[facility] [place], [place] [address] A1Con 02-08-2025 Glucose [Mass/Vol] 111 mg/dL Normal [facility] Comment on above: Result Comment: Ayla mated Average Glucose calculated by equation ((28.7xA1C)-46.7) Estimated average glucose (eAG) is a calculated value from Hemoglobin A1C and is outside sales account representative of the average blood glucose level in the last 2-3 month period. Normal range: less than 114 mg/dL Performed By: #### G FR, ADIFF, ANEU, CMP, CBC, LIPID, TSH, A1C ####[facility] [address] [place], [place] [address] HbA1c (Bld) [Mass fraction] 5.5 % Normal 4.3-6.4 [facility] Comment on above: Performed By: #### G FR, ADIFF, ANEU, CMP, CBC, LIPID, TSH, A1C ####[facility] [address] [place], [place] [address] CBCon 02-08-2025 Erythrocyte distribution width (RBC) [Ratio] 14.3 % Normal 11.5-15.5 [facility] Comment on above: Performed By: #### G FR, ADIFF, ANEU, CMP, CBC, LIPID, TSH, A1C ####[facility] [address] [place] [address] Hematocrit (Bld) [Volume fraction] 40.8 % Normal 34.0-46.0 [facility] Comment on above: Performed By: #### G FR, ADIFF, ANEU, CMP, CBC, LIPID, TSH, A1C ####[facility] [address] [place] [address] Hgb 13.9 G/dL Normal 12.0-16.0 [facility] Comment on above: Performed By: #### G FR, ADIFF, ANEU, CMP, CBC, LIPID, TSH, A1C ####[place] [address] [place], [place] [address] MCH (RBC) [Entitic mass] 27.7 pg Normal 27.0-33.0 [facility] Comment on above: Performed By: #### G FR, ADIFF, ANEU, CMP, CBC, LIPID, TSH, A1C ####[facility] [place] [address] MCHC 34.1 G/dL Normal 32.0-36.0 [facility] Comment on above: Performed By: #### G FR, ADIFF, ANEU, CMP, CBC, LIPID, TSH, A1C ####[place] [address] [place] [id number] MCV (RBC) [Entitic vol] 81.5 fL Normal 80.0-99.0 [facility] Comment on above: Performed By: #### G FR, ADIFF, ANEU, CMP, CBC, LIPID, TSH, A1C ####[facility] [address] [place], [place] [address] Platelet 208 10 3/mcL Normal 150-450 [facility] Comment on above: Performed By: #### G FR, ADIFF, ANEU, CMP, CBC, LIPID, TSH, A1C ####[facility] [address] [place], [place] [address] Platelet mean volume (Bld) [Entitic vol] 8.2 fL Normal 6.6-10.5 [facility] Comment on above: Performed By: #### G FR, ADIFF, ANEU, CMP, CBC, LIPID, TSH, A1C ####[facility] [address] [place], [place] [address] RBC 5.01 10 6/mcL Normal 4.10-5.30 [facility] Comment on above: Performed By: #### G FR, ADIFF, ANEU, CMP, CBC, LIPID, TSH, A1C ####[facility] [address] [place], [place] [address] WBC 6.0 10 3/mcL Normal 4.5-10.8 [facility] Comment on above: Performed By: #### G FR, ADIFF, ANEU, CMP, CBC, LIPID, TSH, A1C ####[facility] [address] [place], [place] [address] CMPon 02-08-2025 Albumin Level 4.1 G/dL Normal 3.4-4.8 [facility] Comment on above: Performed By: #### G FR, ADIFF, ANEU, CMP, CBC, LIPID, TSH, A1C ####[facility] [address] [place], [place] [address] Albumin/Globulin [Mass ratio] 1.3 {ratio} Normal 1.1-2.5 [facility] Comment on above: Performed By: #### G FR, ADIFF, ANEU, CMP, CBC, LIPID, TSH, A1C ####[facility] [address] [place], [place] [address] ALP [Catalytic activity/Vol] 54 U/L Normal 40-135 [facility] Comment on above: Performed By: #### G FR, ADIFF, ANEU, CMP, CBC, LIPID, TSH, A1C ####[facility] [address] [place], [place] [address] ALT [Catalytic activity/Vol] 24 U/L Normal 14-59 [facility] Comment on above: Performed By: #### G FR, ADIFF, ANEU, CMP, CBC, LIPID, TSH, A1C ####Nathan [address] [place], [place] [address] AST [Catalytic activity/Vol] 22 U/L Normal 10-40 [facility] Comment on above: Performed By: #### G FR, ADIFF, ANEU, CMP, CBC, LIPID, TSH, A1C ####Nathan [address] [place], [place] [address] Bili Total 0.9 mg/dL Normal 0.2-1.0 [facility] Comment on above: Result Comment: Use of this assay is not recommended for patients undergoing treatment with eltrombopag due to the potential for falsely elevated results. Performed By: #### G FR, ADIFF, ANEU, CMP, CBC, LIPID, TSH, A1C ####[place] [address] [place], [place] [address] BUN/Creatinine Ratio 30 ratio High 7-27 [facility] Comment on above: Performed By: #### G FR, ADIFF, ANEU, CMP, CBC, LIPID, TSH, A1C ####[facility] [place], [place] [address] Calcium [Mass/Vol] 9.9 mg/dL Normal 8.4-10.2 [facility] Comment on above: Performed By: #### G FR, ADIFF, ANEU, CMP, CBC, LIPID, TSH, A1C ####[facility] [place], [place] [address] Chloride [Moles/Vol] 103 mmol/L Normal 98-107 [facility] Comment on above: Performed By: #### G FR, ADIFF, ANEU, CMP, CBC, LIPID, TSH, A1C ####[facility] [place], [place] [address] CO2 [Moles/Vol] 30 mmol/L Normal 23-31 [facility] Comment on above: Performed By: #### G FR, ADIFF, ANEU, CMP, CBC, LIPID, TSH, A1C ####[facility] [address] [place], [place] [address] Creatinine [Mass/Vol] 1.03 mg/dL High 0.51-0.95 [facility] Comment on above: Performed By: #### G FR, ADIFF, ANEU, CMP, CBC, LIPID, TSH, A1C ####[facility] [place], [place] [address] Electrolyte Balance 7.0 mEq/L Normal 4.0-15.0 [facility] Comment on above: Performed By: #### G FR, ADIFF, ANEU, CMP, CBC, LIPID, TSH, A1C ####[place] [address] [place], [place] [address] Globulin 3.1 G/dL Normal 2.7-4.4 [facility] Comment on above: Performed By: #### G FR, ADIFF, ANEU, CMP, CBC, LIPID, TSH, A1C ####[place] [address] [place], [place] [address] Glucose [Mass/Vol] 98 mg/dL Normal 83-110 [facility] Comment on above: Performed By: #### G FR, ADIFF, ANEU, CMP, CBC, LIPID, TSH, A1C ####[place] [address] [place], [place] [address] Potassium [Moles/Vol] 4.9 mmol/L Normal 3.5-5.1 [facility] Comment on above: Performed By: #### G FR, ADIFF, ANEU, CMP, CBC, LIPID, TSH, A1C ####[facility] [place], [place] [address] Sodium [Moles/Vol] 140 mmol/L Normal 136-145 [facility] Comment on above: Performed By: #### G FR, ADIFF, ANEU, CMP, CBC, LIPID, TSH, A1C ####[address] [place], [place] [address] Total Protein 7.2 G/dL Normal 6.4-8.2 [facility] Comment on above: Performed By: #### G FR, ADIFF, ANEU, CMP, CBC, LIPID, TSH, A1C ####[address] [place], [place] [address] Urea nitrogen [Mass/Vol] 31 mg/dL High 7-18 [facility] Comment on above: Performed By: #### G FR, ADIFF, ANEU, CMP, CBC, LIPID, TSH, A1C ####[address] [place], [place] [address] LABORATORYOrdered By: SYSTEM SYSTEM on 02-08-2025 Albumin BCP dye [Mass/Vol] 4.1 G/dL Normal 3.4 - 4.8 G/dL AO ADM SS Albumin/Globulin [Mass ratio] 1.3 {ratio} Normal 1.1 - 2.5 ratio AO ADM SS ALP [Catalytic activity/Vol] 54 U/L Normal 40 - 135 U/L AO ADM SS ALT With P-5'-P [Catalytic activity/Vol] 24 U/L Normal 14 - 59 U/L AO ADM SS AST With P-5'-P [Catalytic activity/Vol] 22 U/L Normal 10 - 40 U/L AO ADM SS Basophils (Bld) [#/Vol] 0.0 103/mcL Normal 0.0 - 0.3 10^3/mcL AO Workflow SS Basophils/100 WBC (Bld) 0.4 % Normal 0.0 - 2.5 % AO Workflow SS Bilirubin [Mass/Vol] 0.9 mg/dL Normal 0.2 - 1 .0 mg/dL AO ADM SS Comment on above: Interpretive Data: U se of this assay is not recommended for patients undergoing treatment with eltrombopag due to the potential for falsely elevated results. Calcium [Mass/Vol] 9.9 mg/dL Normal 8.4 - 10. 2 mg/dL AO ADM SS Chloride [Moles/Vol] 103 mmol/L Normal 98 - 10 7 mmol/L AO ADM SS CO2 [Moles/Vol] 30 mmol/L Normal 23 - 31 mmol/L AO ADM SS Creatinine [Mass/Vol] 1.03 mg/dL High 0.51 - 0.95 mg/dL AO ADM SS Electrolyte Balance 7.0 mEq/L Normal 4.0 - 15 .0 mEq/L AO ADM SS Eosinophil, Absolute 0.1 103/mcL Normal 0.0 - 0 .7 10^3/mcL AO Workflow SS Eosinophils/100 WBC (Bld) 1.3 % Normal 0.0 - 6.0 % AO Workflow SS Erythrocyte distribution width (RBC) [Ratio] 14.3 % Normal 11.5 - 15.5 % AO Workflow SS Estimated Glomerular Filtration Rate 58 ml/min/1.73sqm Invalid Interpretation Code AO Chemistry S Comment on above: Interpretive Data: Stages of Chronic Kidney Disease (CKD) Stage Description eGFR(ml/min/1.73 sq.m.) CKD 1 Normal kidney function or >=90 normal kindney function with possible kidney damage (ex. Proteinuria) CKD 2 Kidney damage with mild loss 60-89 of kidney function CKD 3a Mild to moderate loss of kidney 45-59 function CKD 3b Moderate to severe loss of 30-44 of kindey function CKD 4 Severe loss of kidney function 15-29 CKD 5 Kidney failure <15 Note: (go live 2024) the eGFR calculation was updated to the 2020 CKD-EPI creatinine equation without a race factor to calculate the eGFR results. Globulin 3.1 G/dL Normal 2.7 - 4.4 G/dL AO ADM SS Glucose [Mass/Vol] 111 mg/dL Invalid Interpretation Code AO Chemistry S Comment on above: Interpretive Data: E stimated average glucose (eAG) is a calculated value from Hemoglobin A1C and is outside sales account representative of the average blood glucose level in the last 2-3 month period. Normal range: less than 114 mg/dL Glucose [Mass/Vol] 98 mg/dL Normal 83 - 110 mg/dL AO ADM SS HbA1c (Bld) [Mass fraction] 5.5 % Normal 4.3 - 6.4 % AO ADM SS Hematocrit (Bld) [Volume fraction] 40.8 % Normal 34.0 - 46.0 % AO Workflow SS Hemoglobin (Bld) [Mass/Vol] 13.9 G/dL Normal 12.0 - 16.0 G/dL AO Workflow SS Lymphocytes (Bld) [#/Vol] 1.1 103/mcL Normal 0.9 - 4.3 10^3/mcL AO Workflow SS Lymphocytes/100 WBC (Bld) 19.0 % Low 20.0 - 40.0 % AO Workflow SS MCH (RBC) [Entitic mass] 27.7 pg Normal 27.0 - 33.0 pg AO Workflow SS MCHC 34.1 G/dL Normal 32.0 - 36.0 G/dL AO Workflow SS MCV (RBC) [Entitic vol] 81.5 fL Normal 80.0 - 99.0 fL AO Workflow SS Monocytes (Bld) [#/Vol] 0.6 103/mcL Normal 0.1 - 1.4 10^3/mcL AO Workflow SS Monocytes/100 WBC (Bld) 10.5 % Normal 2.0 - 13.0 % AO Workflow SS Neutrophils (Bld) [#/Vol] 4.1 103/mcL Normal 2.3 - 8.1 10^3/mcL AO Workflow SS Neutrophils/100 WBC (Bld) 68.8 % Normal 50.0 - 75.0 % AO Workflow SS Platelet mean volume (Bld) [Entitic vol] 8.2 fL Normal 6.6 - 10.5 fL AO Workflow SS Platelets (Bld) [#/Vol] 208 103/mcL Normal 150 - 450 10^3/mcL AO Workflow SS Potassium [Moles/Vol] 4.9 mmol/L Normal 3.5 - 5.1 mmol/L AO ADM SS Protein [Mass/Vol] 7.2 G/dL Normal 6.4 - 8.2 G/dL AO ADM SS RBC (Bld) [#/Vol] 5.01 106/mcL Normal 4.10 - 5.3 0 10^6/mcL AO Workflow SS Sodium [Moles/Vol] 140 mmol/L Normal 136 - 145 mmol/L AO ADM SS TSH Qn 2.36 m[IU]/L Normal 0.36 - 3.74 mcIU/mL AO ADM SS Urea nitrogen [Mass/Vol] 31 mg/dL High 7 - 18 mg/dL AO ADM SS Urea nitrogen/Creatinine [Mass ratio] 30 ratio High 7 - 27 ratio AO ADM SS WBC (Bld) [#/Vol] 6.0 103/mcL Normal 4.5 - 10.8 10^3/mcL AO Workflow SS LABORATORYOrdered By: Miguel oJseph on 02-08-2025 Cholesterol [Mass/Vol] 212 mg/dL High 0 - 200 mg/dL AO ADM SS Comment on above: Interpretive Data: C holesterol Reference Interval: Less than 200 Desirable 200-239 Borderline high risk 240 and above High risk Cholesterol in HDL [Mass/Vol] 82 mg/dL High 40 - 60 mg/dL AO ADM SS Cholesterol in LDL [Mass/Vol] 119 mg/dL Normal 0 - 130 mg/dL AO ADM SS Triglyceride [Mass/Vol] 56 mg/dL Normal 0 - 150 mg/dL AO ADM SS Comment on above: Interpretive Data: T riglyceride Reference Interval: Less than 150 Normal 150-199 Borderline high risk 200-499 High risk 500 or higher Very high risk LIPIDon 02-08-2025 Cholesterol [Mass/Vol] 212 mg/dL High 0-200 [facility] Comment on above: Result Comment: Chol esterol Reference Interval: Less than 200 Desirable 200-239 Borderline high risk 240 and above High risk Performed By: #### G FR, ADIFF, ANEU, CMP, CBC, LIPID, TSH, A1C ####[address] [place], [place] [address] Cholesterol in HDL [Mass/Vol] 82 mg/dL High 40-60 [facility] Comment on above: Performed By: #### G FR, ADIFF, ANEU, CMP, CBC, LIPID, TSH, A1C ####[address] [place], [place] [address] Cholesterol in LDL [Mass/Vol] 119 mg/dL Normal 0-130 [facility] Comment on above: Performed By: #### G FR, ADIFF, ANEU, CMP, CBC, LIPID, TSH, A1C ####[address] [place], [place] [address] Triglyceride [Mass/Vol] 56 mg/dL Normal 0-150 [facility] Comment on above: Result Comment: Trig lyceride Reference Interval: Less than 150 Normal 150-199 Borderline high risk 200-499 High risk 500 or higher Very high risk Performed By: #### G FR, ADIFF, ANEU, CMP, CBC, LIPID, TSH, A1C ####[address] [place], [place] [address] TSHon 02-08-2025 TSH Qn 2.36 m[IU]/L Normal 0.36-3.74 [facility] Comment on above: Performed By: #### G FR, ADIFF, ANEU, CMP, CBC, LIPID, TSH, A1C ####[facility] [place], [place] [address] Non-Branch Mechanic Cytology Reporton Non-Branch Mechanic Cytology Report . Pathology Reports Accession: Collected Date/Time: Received Date/Time: Pathologist: [id number] 11/29/2024 11:15 EST 11/30/2024 08:25 EST MD ASHWINI HUMPHRIES Non-Branch Mechanic Cytology Report CLINICAL INFORMATION: Bladder Cancer DIAGNOSTIC CATEGORY: ATYPICAL UROTHELIAL CELLS. SPECIMEN: Urine GROSS DESCRIPTION: # of Monolayers: 1 Volume (ml) 70 Color: fixed clear yellow SUGGESTION/EDUCATIONAL NOTES: This sample was evaluated using standardized diagnostic criteria published in the '[employer] System for Reporting Urinary Cytology '(TPS), Second edition, 2021. The following Risk of High-grade urothelial carcinoma is based on published data from TPS. Individual institutional rates may vary. TPS Cytology Diagnostic category Risk of high-grade malignancy Non diagnostic 0-16% Negative for High grade urothelial carcinoma 8-24% Low grade urothelial neoplasm 0-44% Atypical Urothelial cells 24-53% Suspicious for High grade urothelial carcinoma 59-94% Malignant- High grade urothelial carcinoma 76-100% Verified by Pathology Report verified by [facility] Screened by: RITA Electronically signed by ASHWINI HUMPHRIES MD Sign-Out Date: 12/01/2024 11:06 Performing Lab: [facility], [address] [place] [address] Pathology Dept Disclaimer If ancillary studies were utilized, the following Laboratory Developed Test (LDT) disclaimer will apply: Under CLIA requirements, [facility] Pathology Laboratory is qualified to perform high complexity testing. For all ancillary stains, positive and negative controls stain appropriately. Performance characteristics of immunohistochemical and chromogenic in-situ hybridization tests have been determined by [facility] Pathology Laboratory. These tests are used for clinical purposes, They should not be regarded as investigational or for research. Normal [facility] Non-Branch Mechanic Cytology Reporton Non-Branch Mechanic Cytology Report . Pathology Reports Accession: Collected Date/Time: Received Date/Time: Pathologist: [id number] 08/31/2024 07:20 EST 09/01/2024 09:45 EST MD ASHWINI HUMPHRIES Non-Branch Mechanic Cytology Report CLINICAL INFORMATION: bladder cancer DIAGNOSTIC CATEGORY: NEGATIVE FOR HIGH GRADE UROTHELIAL CARCINOMA. SPECIMEN: Urine GROSS DESCRIPTION: # of Monolayers: 1 Volume (ml) 80 Color: fixed clear yellow SUGGESTION/EDUCATIONAL NOTES: This sample was evaluated using standardized diagnostic criteria published in the '[employer] System for Reporting Urinary Cytology '(TPS), Second edition, 2021. The following Risk of High-grade urothelial carcinoma is based on published data from TPS. Individual institutional rates may vary. TPS Cytology Diagnostic category Risk of high-grade malignancy Non diagnostic 0-16% Negative for High grade urothelial carcinoma 8-24% Low grade urothelial neoplasm 0-44% Atypical Urothelial cells 24-53% Suspicious for High grade urothelial carcinoma 59-94% Malignant- High grade urothelial carcinoma 76-100% Electronically Signed by Pathology Report verified by [facility] Screened by: STEVE Electronically signed by ASHWINI HUMPHRIES MD Sign-Out Date: 09/04/2024 12:00 Performing Lab: [address] Pathology Dept Disclaimer If ancillary studies were utilized, the following Laboratory Developed Test (LDT) disclaimer will apply: Under CLIA requirements, [facility] Pathology Laboratory is qualified to perform high complexity testing. For all ancillary stains, positive and negative controls stain appropriately. Performance characteristics of immunohistochemical and chromogenic in-situ hybridization tests have been determined by [facility] Pathology Laboratory. These tests are used for clinical purposes, They should not be regarded as investigational or for research. Normal [facility] .Auto Diffon 08-11-2024 Basophil, Absolute 0.0 10 3/mcL Normal 0.0-0.2 [facility] Comment on above: Performed By: #### T SH, ADIFF, GFR, CBC, A1C, LIPID, ANEU, CMP #### [facility] [address] [place], [place] [address] #### M[place]IS #### [place] [address] Basophils/100 WBC (Bld) 0.5 % Normal 0.0-2.5 [facility] Comment on above: Performed By: #### T SH, ADIFF, GFR, CBC, A1C, LIPID, ANEU, CMP #### [address] [address] #### [place]IS #### [address] [address] Eosinophil, Absolute 0.1 10 3/mcL Normal 0.0-0.7 [facility] Comment on above: Performed By: #### T SH, ADIFF, GFR, CBC, A1C, LIPID, ANEU, CMP #### [address] [address] #### [place] #### [address] [address] Eosinophils/100 WBC (Bld) 1.3 % Normal 0.0-7.0 [facility] Comment on above: Performed By: #### T SH, ADIFF, GFR, CBC, A1C, LIPID, ANEU, CMP #### [address] [address] #### [place] #### [address] [address] Lymphocyte, Absolute 1.0 10 3/mcL Normal 0.9-4.3 [facility] Comment on above: Performed By: #### T SH, ADIFF, GFR, CBC, A1C, LIPID, ANEU, CMP #### [address] [address] #### [place] #### [address] [address] Lymphocytes/100 WBC (Bld) 23.9 % Normal 20.0-40.0 [facility] Comment on above: Performed By: #### T SH, ADIFF, GFR, CBC, A1C, LIPID, ANEU, CMP #### [address] [address] #### [place] #### [address] [address] Monocyte, Absolute 0.5 10 3/mcL Normal 0.1-1.4 [facility] Comment on above: Performed By: #### T SH, ADIFF, GFR, CBC, A1C, LIPID, ANEU, CMP #### [address] [address] #### [place] #### [address] [address] Monocytes/100 WBC (Bld) 11.6 % Normal 2.0-13.0 [facility] Comment on above: Performed By: #### T SH, ADIFF, GFR, CBC, A1C, LIPID, ANEU, CMP #### [address] [address] #### [place]IS #### [address] [address] Neutrophils/100 WBC (Bld) 62.7 % Normal 50.0-75.0 [facility] Comment on above: Performed By: #### T SH, ADIFF, GFR, CBC, A1C, LIPID, ANEU, CMP #### [address] [address] #### [place]IS #### [address] [address] .GFRon 08-11-2024 GFR 79 ml/min/1.73sqm Normal [facility] Comment on above: Result Comment: GFR Population mean for , Non- Americans Ages 20-29 = 116 mL/min/1.73 sq.m. Ages 30-39 = 107 mL/min/1.73 sq.m. Ages 40-49 = 99 mL/min/1.73 sq.m. Ages 50-59 = 93 mL/min/1.73 sq.m. Ages 60-69 = 85 mL/min/1.73 sq.m. Ages 70+ = 75 mL/min/1.73 sq.m. Chronic Kidney Disease: Less than 60 mL/min/1.73 square meters End Stage Renal Disease: Less than 15 mL/min/1.73 square meters Performed By: #### T SH, ADIFF, GFR, CBC, A1C, LIPID, ANEU, CMP #### [address] [address] #### [place]IS #### [address] [address] GFR Non- 65 ml/min/1.73sqm Normal [facility] Comment on above: Result Comment: GFR Population mean for , Non- Americans Ages 20-29 = 116 mL/min/1.73 sq.m. Ages 30-39 = 107 mL/min/1.73 sq.m. Ages 40-49 = 99 mL/min/1.73 sq.m. Ages 50-59 = 93 mL/min/1.73 sq.m. Ages 60-69 = 85 mL/min/1.73 sq.m. Ages 70+ = 75 mL/min/1.73 sq.m. Chronic Kidney Disease: Less than 60 mL/min/1.73 square meters End Stage Renal Disease: Less than 15 mL/min/1.73 square meters Performed By: #### T SH, ADIFF, GFR, CBC, A1C, LIPID, ANEU, CMP #### [place] [address] #### [place]IS #### [address] [address] .NEUABSon 08-11-2024 Neutrophil, Absolute 2.6 10 3/mcL Normal 2.3-8.1 [facility] Comment on above: Performed By: #### T SH, ADIFF, GFR, CBC, A1C, LIPID, ANEU, CMP #### [address] [address] #### [place]IS #### [place] [address] A1Con 08-11-2024 Glucose [Mass/Vol] 114 mg/dL Normal [facility] Comment on above: Result Comment: Ayla mated Average Glucose calculated by equation ((28.7xA1C)-46.7) Estimated average glucose (eAG) is a calculated value from Hemoglobin A1C and is outside sales account representative of the average blood glucose level in the last 2-3 month period. Normal range: less than 114 mg/dL Performed By: #### T SH, ADIFF, GFR, CBC, A1C, LIPID, ANEU, CMP #### [place] [address] #### [place]IS #### [address] [address] HbA1c (Bld) [Mass fraction] 5.6 % Normal 4.3-6.4 [facility] Comment on above: Performed By: #### T SH, ADIFF, GFR, CBC, A1C, LIPID, ANEU, CMP #### [address] [address] #### [place]IS #### [place] [address] CBCon 08-11-2024 Erythrocyte distribution width (RBC) [Ratio] 14.0 % Normal 11.5-15.5 [facility] Comment on above: Performed By: #### T SH, ADIFF, GFR, CBC, A1C, LIPID, ANEU, CMP #### [place] [address] #### [place]IS #### [place] [address] Hematocrit (Bld) [Volume fraction] 40.8 % Normal 34.0-46.0 [facility] Comment on above: Performed By: #### T SH, ADIFF, GFR, CBC, A1C, LIPID, ANEU, CMP #### [place] [address] #### [place]IS #### [place] [address] Hgb 14.0 G/dL Normal 12.0-16.0 [facility] Comment on above: Performed By: #### T SH, ADIFF, GFR, CBC, A1C, LIPID, ANEU, CMP #### [address] [address] #### [place]IS #### [address] [address] MCH (RBC) [Entitic mass] 27.9 pg Normal 27.0-33.0 [facility] Comment on above: Performed By: #### T SH, ADIFF, GFR, CBC, A1C, LIPID, ANEU, CMP #### [place] [address] #### [place]IS #### [place] [address] MCHC 34.4 G/dL Normal 32.0-36.0 [facility] Comment on above: Performed By: #### T SH, ADIFF, GFR, CBC, A1C, LIPID, ANEU, CMP #### [place] [address] #### [place]IS #### [place] [address] MCV (RBC) [Entitic vol] 81.2 fL Normal 80.0-99.0 [facility] Comment on above: Performed By: #### T SH, ADIFF, GFR, CBC, A1C, LIPID, ANEU, CMP #### [place] [address] #### [place]IS #### [place] [address] Platelet 215 10 3/mcL Normal 150-450 [facility] Comment on above: Performed By: #### T SH, ADIFF, GFR, CBC, A1C, LIPID, ANEU, CMP #### [place] [address] #### [place]IS #### [place] [address] Platelet mean volume (Bld) [Entitic vol] 8.1 fL Normal 6.6-10.5 [facility] Comment on above: Performed By: #### T SH, ADIFF, GFR, CBC, A1C, LIPID, ANEU, CMP #### [place] [address] #### [place]IS #### [place] [address] RBC 5.02 10 6/mcL Normal 4.10-5.30 [facility] Comment on above: Performed By: #### T SH, ADIFF, GFR, CBC, A1C, LIPID, ANEU, CMP #### [place] [address] #### [place]IS #### [address] [address] WBC 4.2 10 3/mcL Low 4.5-10.8 [facility] Comment on above: Performed By: #### T SH, ADIFF, GFR, CBC, A1C, LIPID, ANEU, CMP #### [address] [address] #### [place]IS #### [place] [address] CMPon 08-11-2024 Albumin Level 4.2 G/dL Normal 3.4-4.8 [facility] Comment on above: Performed By: #### T SH, ADIFF, GFR, CBC, A1C, LIPID, ANEU, CMP #### [address] [address] #### [place]IS #### [place] [address] Albumin/Globulin [Mass ratio] 1.6 {ratio} Normal 1.1-2.5 [facility] Comment on above: Performed By: #### T SH, ADIFF, GFR, CBC, A1C, LIPID, ANEU, CMP #### [address] [address] #### [place] #### [address] [address] ALP [Catalytic activity/Vol] 60 U/L Normal 40-135 [facility] Comment on above: Performed By: #### T SH, ADIFF, GFR, CBC, A1C, LIPID, ANEU, CMP #### [address] [address] #### [place]IS #### [address] [address] ALT [Catalytic activity/Vol] 27 U/L Normal 14-59 [facility] Comment on above: Performed By: #### T SH, ADIFF, GFR, CBC, A1C, LIPID, ANEU, CMP #### [address] [address] #### [place]IS #### [place] [address] AST [Catalytic activity/Vol] 16 U/L Normal 10-40 [facility] Comment on above: Performed By: #### T SH, ADIFF, GFR, CBC, A1C, LIPID, ANEU, CMP #### [address] [address] #### [place] #### [address] [address] Bili Total 0.8 mg/dL Normal 0.2-1.0 [facility] Comment on above: Result Comment: Use of this assay is not recommended for patients undergoing treatment with eltrombopag due to the potential for falsely elevated results. Performed By: #### T SH, ADIFF, GFR, CBC, A1C, LIPID, ANEU, CMP #### [address] [address] #### [place] #### [address] [address] BUN/Creatinine Ratio 24 ratio Normal 7-27 [facility] Comment on above: Performed By: #### T SH, ADIFF, GFR, CBC, A1C, LIPID, ANEU, CMP #### [address] [address] #### [place]IS #### [address] [address] Calcium [Mass/Vol] 9.5 mg/dL Normal 8.4-10.2 [facility] Comment on above: Performed By: #### T SH, ADIFF, GFR, CBC, A1C, LIPID, ANEU, CMP #### [address] [address] #### [place]IS #### [address] [address] Chloride [Moles/Vol] 104 mmol/L Normal 98-107 [facility] Comment on above: Performed By: #### T SH, ADIFF, GFR, CBC, A1C, LIPID, ANEU, CMP #### [address] [address] #### [place]IS #### [address] [address] CO2 [Moles/Vol] 31 mmol/L Normal 23-31 [facility] Comment on above: Performed By: #### T SH, ADIFF, GFR, CBC, A1C, LIPID, ANEU, CMP #### [address] [address] #### [place]IS #### [address] [address] Creatinine [Mass/Vol] 0.86 mg/dL Normal 0.55-1.02 [facility] Comment on above: Result Comment: Test ing performed on Siemens Dimension EXL analyzer using a modified kinetic Miladys technique. Performed By: #### T SH, ADIFF, GFR, CBC, A1C, LIPID, ANEU, CMP #### [address] [address] #### [place]IS #### [address] [address] Electrolyte Balance 8.0 mEq/L Normal 4.0-15.0 [facility] Comment on above: Performed By: #### T SH, ADIFF, GFR, CBC, A1C, LIPID, ANEU, CMP #### [address] [address] #### [place]IS #### [address] [address] Globulin 2.6 G/dL Normal [facility] Comment on above: Performed By: #### T SH, ADIFF, GFR, CBC, A1C, LIPID, ANEU, CMP #### [address] [address] #### [place]IS #### [address] [address] Glucose [Mass/Vol] 110 mg/dL Normal 83-110 [facility] Comment on above: Performed By: #### T SH, ADIFF, GFR, CBC, A1C, LIPID, ANEU, CMP #### [address] [address] #### [place]IS #### [address] [address] Potassium [Moles/Vol] 4.6 mmol/L Normal 3.5-5.1 [facility] Comment on above: Performed By: #### T SH, ADIFF, GFR, CBC, A1C, LIPID, ANEU, CMP #### [address] [address] #### [place]IS #### [address] [address] Sodium [Moles/Vol] 143 mmol/L Normal 136-145 [facility] Comment on above: Performed By: #### T SH, ADIFF, GFR, CBC, A1C, LIPID, ANEU, CMP #### [address] [address] #### [place]IS #### [address] [address] Total Protein 6.8 G/dL Normal 6.4-8.2 [facility] Comment on above: Performed By: #### T SH, ADIFF, GFR, CBC, A1C, LIPID, ANEU, CMP #### [address] [address] #### [place] #### [address] [address] Urea nitrogen [Mass/Vol] 21 mg/dL High -18 [facility] Comment on above: Performed By: #### T SH, ADIFF, GFR, CBC, A1C, LIPID, ANEU, CMP #### [address] [address] #### [place] #### [address] [address] CORTon 08-11-2024 Cortisol Level 13.2 mcg/dL Normal [facility] Comment on above: Result Comment: Morris isol AM Reference Range 6.5-26.0 mcg/dL Cortisol PM Reference Range 3.5-15.0 mcg/dL Performed By: #### T SH, ADIFF, GFR, CBC, A1C, LIPID, ANEU, CMP ####[address] [address]#### [place]IS ####[address] [address] LABORATORYOrdered By: SYSTEM SYSTEM on 08-11-2024 Albumin BCP dye [Mass/Vol] 4.2 G/dL Normal 3.4 - 4.8 G/dL AO ADM SS Albumin/Globulin [Mass ratio] 1.6 {ratio} Normal 1.1 - 2.5 ratio AO ADM SS ALP [Catalytic activity/Vol] 60 U/L Normal 40 - 135 U/L AO ADM SS ALT With P-5'-P [Catalytic activity/Vol] 27 U/L Normal 14 - 59 U/L AO ADM SS AST With P-5'-P [Catalytic activity/Vol] 16 U/L Normal 10 - 40 U/L AO ADM SS Basophils (Bld) [#/Vol] 0.0 103/mcL Normal 0.0 - 0.2 10^3/mcL AO Workflow SS Basophils/100 WBC (Bld) 0.5 % Normal 0.0 - 2.5 % AO Workflow SS Bilirubin [Mass/Vol] 0.8 mg/dL Normal 0.2 - 1 .0 mg/dL AO ADM SS Comment on above: Interpretive Data: U se of this assay is not recommended for patients undergoing treatment with eltrombopag due to the potential for falsely elevated results. Calcium [Mass/Vol] 9.5 mg/dL Normal 8.4 - 10. 2 mg/dL AO ADM SS Chloride [Moles/Vol] 104 mmol/L Normal 98 - 10 7 mmol/L AO ADM SS CO2 [Moles/Vol] 31 mmol/L Normal 23 - 31 mmol/L AO ADM SS Cortisol [Mass/Vol] 13.2 ug/dL Invalid Interpretation Code ADM SS Comment on above: Interpretive Data: C ortisol AM Reference Range 6.5-26.0 mcg/dL Cortisol PM Reference Range 3.5-15.0 mcg/dL Creatinine [Mass/Vol] 0.86 mg/dL Normal 0.55 - 1.02 mg/dL AO ADM SS Comment on above: Interpretive Data: T esting performed on Applyful Dimension EXL analyzer using a modified kinetic Miladys technique. Electrolyte Balance 8.0 mEq/L Normal 4.0 - 15 .0 mEq/L AO ADM SS Eosinophil, Absolute 0.1 103/mcL Normal 0.0 - 0 .7 10^3/mcL AO Workflow SS Eosinophils/100 WBC (Bld) 1.3 % Normal 0.0 - 7.0 % AO Workflow SS Erythrocyte distribution width (RBC) [Ratio] 14.0 % Normal 11.5 - 15.5 % AO Workflow SS GFR/1.73 sq M.predicted among blacks MDRD (S/P/Bld) [Vol rate/Area] 79 ml/min/1.73sqm Invalid Interpretation Code AO Chemistry S Comment on above: Interpretive Data: GFR Population mean for , Non- Americans Ages 20-29 = 116 mL/min/1.73 sq.m. Ages 30-39 = 107 mL/min/1.73 sq.m. Ages 40-49 = 99 mL/min/1.73 sq.m. Ages 50-59 = 93 mL/min/1.73 sq.m. Ages 60-69 = 85 mL/min/1.73 sq.m. Ages 70+ = 75 mL/min/1.73 sq.m. Chronic Kidney Disease: Less than 60 mL/min/1.73 square meters End Stage Renal Disease: Less than 15 mL/min/1.73 square meters GFR/1.73 sq M.predicted among non-blacks MDRD (S/P/Bld) [Vol rate/Area] 65 ml/min/1.73sqm Invalid Interpretation Code AO Chemistry S Comment on above: Interpretive Data: GFR Population mean for , Non- Americans Ages 20-29 = 116 mL/min/1.73 sq.m. Ages 30-39 = 107 mL/min/1.73 sq.m. Ages 40-49 = 99 mL/min/1.73 sq.m. Ages 50-59 = 93 mL/min/1.73 sq.m. Ages 60-69 = 85 mL/min/1.73 sq.m. Ages 70+ = 75 mL/min/1.73 sq.m. Chronic Kidney Disease: Less than 60 mL/min/1.73 square meters End Stage Renal Disease: Less than 15 mL/min/1.73 square meters Globulin 2.6 G/dL Invalid Interpretation Code AO ADM SS Glucose [Mass/Vol] 110 mg/dL Normal 83 - 110 mg/dL AO ADM SS Glucose [Mass/Vol] 114 mg/dL Invalid Interpretation Code AO Chemistry S Comment on above: Interpretive Data: E stimated average glucose (eAG) is a calculated value from Hemoglobin A1C and is outside sales account representative of the average blood glucose level in the last 2-3 month period. Normal range: less than 114 mg/dL HbA1c (Bld) [Mass fraction] 5.6 % Normal 4.3 - 6.4 % AO ADM SS Hematocrit (Bld) [Volume fraction] 40.8 % Normal 34.0 - 46.0 % AO Workflow SS Hemoglobin (Bld) [Mass/Vol] 14.0 G/dL Normal 12.0 - 16.0 G/dL AO Workflow SS Lymphocytes (Bld) [#/Vol] 1.0 103/mcL Normal 0.9 - 4.3 10^3/mcL AO Workflow SS Lymphocytes/100 WBC (Bld) 23.9 % Normal 20.0 - 40.0 % AO Workflow SS MCH (RBC) [Entitic mass] 27.9 pg Normal 27.0 - 33.0 pg AO Workflow SS MCHC 34.4 G/dL Normal 32.0 - 36.0 G/dL AO Workflow SS MCV (RBC) [Entitic vol] 81.2 fL Normal 80.0 - 99.0 fL AO Workflow SS Monocytes (Bld) [#/Vol] 0.5 103/mcL Normal 0.1 - 1.4 10^3/mcL AO Workflow SS Monocytes/100 WBC (Bld) 11.6 % Normal 2.0 - 13.0 % AO Workflow SS Neutrophils (Bld) [#/Vol] 2.6 103/mcL Normal 2.3 - 8.1 10^3/mcL AO Workflow SS Neutrophils/100 WBC (Bld) 62.7 % Normal 50.0 - 75.0 % AO Workflow SS Platelet mean volume (Bld) [Entitic vol] 8.1 fL Normal 6.6 - 10.5 fL AO Workflow SS Platelets (Bld) [#/Vol] 215 103/mcL Normal 150 - 450 10^3/mcL AO Workflow SS Potassium [Moles/Vol] 4.6 mmol/L Normal 3.5 - 5.1 mmol/L AO ADM SS Protein [Mass/Vol] 6.8 G/dL Normal 6.4 - 8.2 G/dL AO ADM SS RBC (Bld) [#/Vol] 5.02 106/mcL Normal 4.10 - 5.3 0 10^6/mcL AO Workflow SS Sodium [Moles/Vol] 143 mmol/L Normal 136 - 145 mmol/L AO ADM SS TSH Qn 2.34 m[IU]/L Normal 0.36 - 3.74 mcIU/mL AO ADM SS Urea nitrogen [Mass/Vol] 21 mg/dL High 7 - 18 mg/dL AO ADM SS Urea nitrogen/Creatinine [Mass ratio] 24 ratio Normal 7 - 27 ratio AO ADM SS WBC (Bld) [#/Vol] 4.2 103/mcL Low 4.5 - 10.8 10^3/mcL AO Workflow SS LABORATORYOrdered By: Dong Burch on 08-11-2024 Cholesterol [Mass/Vol] 220 mg/dL High 0 - 200 mg/dL AO ADM SS Comment on above: Interpretive Data: C holesterol Reference Interval: Less than 200 Desirable 200-239 Borderline high risk 240 and above High risk Cholesterol in HDL [Mass/Vol] 73 mg/dL High 40 - 60 mg/dL AO ADM SS Cholesterol in LDL [Mass/Vol] 136 mg/dL High 0 - 130 mg/dL AO ADM SS Triglyceride [Mass/Vol] 54 mg/dL Normal 0 - 150 mg/dL AO ADM SS Comment on above: Interpretive Data: T riglyceride Reference Interval: Less than 150 Normal 150-199 Borderline high risk 200-499 High risk 500 or higher Very high risk LIPIDon 08-11-2024 Cholesterol [Mass/Vol] 220 mg/dL High 0-200 [facility] Comment on above: Result Comment: Chol esterol Reference Interval: Less than 200 Desirable 200-239 Borderline high risk 240 and above High risk Performed By: #### T SH, ADIFF, GFR, CBC, A1C, LIPID, ANEU, CMP ####[address] [address]#### MORRIS ####[address] [address] Cholesterol in HDL [Mass/Vol] 73 mg/dL High 40-60 [facility] Comment on above: Performed By: #### T SH, ADIFF, GFR, CBC, A1C, LIPID, ANEU, CMP ####[address] [address]#### MORRIS ####[address] [address] Cholesterol in LDL [Mass/Vol] 136 mg/dL High 0-130 [facility] Comment on above: Performed By: #### T SH, ADIFF, GFR, CBC, A1C, LIPID, ANEU, CMP ####[address] [place], [place] [address]#### MORRIS ####[facility] [place] [address] Triglyceride [Mass/Vol] 54 mg/dL Normal 0-150 [facility] Comment on above: Result Comment: Trig lyceride Reference Interval: Less than 150 Normal 150-199 Borderline high risk 200-499 High risk 500 or higher Very high risk Performed By: #### T SH, ADIFF, GFR, CBC, A1C, LIPID, ANEU, CMP ####[address] [place], [place] [address]#### MORRIS ####[address] [address] TSHon 08-11-2024 TSH Qn 2.34 m[IU]/L Normal 0.36-3.74 [facility] Comment on above: Performed By: #### T SH, ADIFF, GFR, CBC, A1C, LIPID, ANEU, CMP #### [address] [address] #### MORRIS #### [facility] [address] [place] [address] Non-Branch Mechanic Cytology Reporton Non-Branch Mechanic Cytology Report . Pathology Reports Accession: Collected Date/Time: Received Date/Time: Pathologist: [id number] 05/30/2024 06:58 EDT 05/31/2024 08:10 EDT MILANA BURDEN MD Non-Branch Mechanic Cytology Report CLINICAL INFORMATION: bladder cancer DIAGNOSTIC CATEGORY: ATYPICAL UROTHELIAL CELLS. SPECIMEN: Urine GROSS DESCRIPTION: # of Monolayers: 1 Volume (ml) 70 Color: fixed, yellow SUGGESTION/EDUCATIONAL NOTES: This sample was evaluated using standardized diagnostic criteria published in the '[employer] System for Reporting Urinary Cytology '(TPS), Second edition, 2021. The following Risk of High-grade urothelial carcinoma is based on published data from TPS. Individual institutional rates may vary. TPS Cytology Diagnostic category Risk of high-grade malignancy Non diagnostic 0-16% Negative for High grade urothelial carcinoma 8-24% Low grade urothelial neoplasm 0-44% Atypical Urothelial cells 24-53% Suspicious for High grade urothelial carcinoma 59-94% Malignant- High grade urothelial carcinoma 76-100% Electronically Signed by Pathology Report verified by [facility] Screened by: MARIFER MARTINEZ Electronically signed by MILANA BURDEN Sign-Out Date: 06/01/2024 09:22 Performing Lab: [facility], [address] [place] [address] Pathology Dept Disclaimer If ancillary studies were utilized, the following Laboratory Developed Test (LDT) disclaimer will apply: Under CLIA requirements, [facility] Pathology Laboratory is qualified to perform high complexity testing. For all ancillary stains, positive and negative controls stain appropriately. Performance characteristics of immunohistochemical and chromogenic in-situ hybridization tests have been determined by [facility] Pathology Laboratory. These tests are used for clinical purposes, They should not be regarded as investigational or for research. Normal [facility] ([place]) BD BONE DENSITY DEXA AXIAL S SUREKHAFormerly [facility] 03-28-2024 BD BONE DENSITY DEXA AXIAL SKELETON ORIGINAL EXAMINATION: BONE DENSITOMETRY 03/27/2024 11:49 am TECHNIQUE: A bone density dual x-ray absorptiometry (DEXA) scan was performed of the axial (e.g. hips, spine) and/or appendicular (e.g. radius) skeleton as appropriate. COMPARISON: None. HISTORY: ORDERING SYSTEM PROVIDED HISTORY: Reason for Exam: post menopausal FINDINGS: T Score Left Femoral Neck: -2.1 Left Femoral Neck: 0.612 (g/cm2) T Score Left Hip: -2.1 Left Hip: 0.680 (g/cm2) T Score Lumbar Spine: -0.8 Lumbar Spine: 0.958 (g/cmd2) FRAX: 10 year fracture risk assessment Major osteoporotic fracture: 17% Hip fracture: 5.7% IMPRESSION: Osteopenia by WHO criteria. World Health Organization criteria: (Comparing with young normal sex matched population) - Normal: T-score at or above -1 SD (standard deviation) - Osteopenia: T-score between -1 and -2.5 SD - Osteoporosis: T-score at or below -2.5 SD The NOF recommends that FDA-approved medical therapies be considered in post-menopausal women and men age >/= 50 years with a: * Hip or vertebral fracture, or * T-score of /= 20% for major osteoporotic fractures or * >/= 3% for hip fractures All treatment decisions require clinical judgement and consideration of individual patient factors, including patient preferences, comorbidities, previous drug use, risk factors not captured in the FRAX registered model (e.g., frailty, falls, vitamin D deficiency, increased bone turnover, interval significant decline in bone density) and possible under- or over-estimation of fracture risk by FRAX. Interpreted by: Demetrio Topete DO Preliminary Report By: Demetrio Topete DO Electronically signed By Demetrio Topete DO Dictated Date: 03/27/2024 3:09:31 PM Prelim Date: 03/28/2024 1:36:27 PM Sign Date: 03/28/2024 1:36:27 PM Ordering Provider: CHRISTIANA Escobar [facility] ([place]) Final Surgical Pathology Rep ned 03-10-2024 Final Surgical Pathology Report . Pathology Reports Accession: Collected Date/Time: Received Date/Time: Pathologist: [id number] 02/29/2024 15:43 EDT 03/01/2024 07:50 EDT RUBENS CARRILLO MD Final Surgical Pathology Report DIAGNOSIS: BLADDER TUMOR, TRANSURETHRAL RESECTION: - POSITIVE FOR HIGH-GRADE PAPILLARY UROTHELIAL CARCINOMA, NON-INVASIVE, WITH PREDOMINANTLY INVERTED PATTERN OF GROWTH. MUSCULARIS PROPRIA IS PRESENT AND UNINVOLVED. SEEN IN CONSULTATION WITH DR. GRACE OF [facility] Comment: CK20 and synaptophysin stains are negative. GATA3 is positive and Ki-67 is positive (40%) CLINICAL INFORMATION: Procedure: CYSTOSCOPY AND TRANSURETHRAL RESECTION OF THE BLADDER TUMOR AND GEMZAR INSTILLATION Preoperative diagnosis: BLADDER CANCER Postoperative diagnosis: BLADDER CANCER SPECIMEN: A BLADDER TUMOR GROSS DESCRIPTION: All parts labelled with patient name and [id number] Received in formalin labeled "bladder tumor" are 3 wispy white tissue fragments measuring 0.2 to 0.5 x 0.1 cm. TS-1 Zita Yates, Grossing Shuttle Threader/ Dr. Rubens Carrillo, Pathologist Dictated by Zita Yates MICROSCOPIC DESCRIPTION: The microscopic examination is performed, except in the case of Gross Only. Electronically Signed by Pathology Report verified by [facility] RUBENS CARRILLO Sign out Date: 03/10/2024 12:28 Performing Lab: [facility], [facility] [address] [place] [address] Pathology Dept Disclaimer If ancillary studies were utilized, the following Laboratory Developed Test (LDT) disclaimer will apply: Under CLIA requirements, [facility] Pathology Laboratory is qualified to perform high complexity testing. For all ancillary stains, positive and negative controls stain appropriately. Performance characteristics of immunohistochemical and chromogenic in-situ hybridization tests have been determined by [facility] Pathology Laboratory. These tests are used for clinical purposes, They should not be regarded as investigational or for research. Normal [facility] ([place]) Low Dose CT Lung Screeningon 03-03-[address] Lung Screening [facility] [address] [place] [address] Lung Screening MR#: [id number] Acct: [id number] Name: RENAE VIDAL Rep #: [id number] : 1955 F 69 From: Logan crocker MD PCP: Dr. Christiana Batista, DO Status: [facility] Study: Low Dose CT Lung Screening Date of Exam: 03/03 Exam# [id number] Ordering Dr: Ami Simmons NP PRINTER REPAIR TECHNICIAN-C [id number] STUDY: LOW DOSE CT LUNG CANCER SCREENING REASON FOR EXAM: Female, 69 years old. Multiple pulmonary nodules RADIATION DOSAGE (If Supplied By Facility): CTDIvol = ( 2.01 ) mGy, DLP = ( 78.76 ) mGycm TECHNIQUE: No contrast was administered. Low dose technique was utilized (average mAS-38 and kVp 120). 1.25 mm axial source images with a slice interval of 1.25-mm were reconstructed in lung windows. 2.5 mm axial source images with a slice interval of 2.5-mm were reconstructed in lung windows. 5.0 mm axial source images with a slice interval of 5.0-mm were reconstructed in soft tissue windows. COMPARISON: Comparison is made with prior examination dated March 02, 2023. NODULES: Stable 4 mm x 4 mm noncalcified nodule in the posterior aspect of the right lower lobe as seen on axial image #27. Stable 7 mm x 3 mm well-defined nodule in the superior aspect of the left lower lobe medially as seen on axial image #143. Stable 8 mm x 5 mm noncalcified nodule in the inferior aspect of the left lower lobe. Stable 4 mm x 3 mm solid noncalcified nodule in the medial aspect of the lingular segment of the left upper lobe. Emphysema: Hyperinflation. Stable emphysematous changes and pleural thickening. This is worse in the apices as well as in the right middle lobe and lateral left upper lobe. Endobronchial lesion: None Aorta: Atherosclerotic calcification. CORONARY ARTERIES: Coronary artery calcification is seen. Heart: Unremarkable Pulmonary artery: Unremarkable Mediastinal nodes: Other chest and abdominal findings: CT/Low Dose CT Lung Screening IMPRESSION: Lung-RADS category 2 - Continue annual screening with LDCT in 12 months. IMPORTANT NOTES FOR USE: ACR Lung-RADS Version 1.1 Assessment Categories Release Date: 2018 Category: Coded 0-4 bases on nodule(s) with highest degree of suspicion. Negative screen is defined as categories 1 and 2; a positive screen is defined as categories 3 and 4. Category 3 and 4A nodules that are unchanged on interval CT should be coded as category 2, and individuals returned to screening in 12 months. Category 4X: Category 3 or 4 nodules with additional imaging findings that increase the suspicion of lung cancer, such as spiculation, GGN that doubles in size in 1 year, enlarged lymph notes, etc. Category Modifiers: S (significant finding unrelated to lung cancer) Electronically Signed: Logan Lawson MD at 10:34 EDT , CC: TSERING Simmons; Dr. Christiana Batista DO Title Search Manager: Signed Normal [facility] US RENALon 02-04-2024 US RENAL ORIGINAL EXAMINATION: ULTRASOUND OF THE KIDNEYS 02/04/2024 3:04 pm COMPARISON: 06/11/2023 HISTORY: ORDERING SYSTEM PROVIDED HISTORY: Reason for Exam: flank pain History of recurrent bladder neoplasm FINDINGS: Right and left kidneys measure 9.3 x 3.7 x 5.6 cm, and 9.3 x 3.6 x 6 2 cm respectively. A 5 mm hyperechoic focus in the mid right kidney and a 1.1 cm in pole cyst in the lower pole of the right kidney. Left kidney demonstrates multiple cysts measuring upwards of 4.6 cm. There is no hydronephrosis or solid renal mass. Distended urinary bladder contains 242 mL of urine. Bladder mucosa reveals no discrete mass lesion. Postvoid residual volume is 5 mL. Bladder wall is not thickened. IMPRESSION: 1. Bilateral renal cysts. 2. 5 mm nonobstructing calculus in the mid right kidney. Interpreted by: Heri Harper DO Preliminary Report By: Heri Harper DO Electronically signed By Heri Harper DO Dictated Date: 02/04/2024 4:23:25 PM Prelim Date: 02/04/2024 4:26:02 PM Sign Date: 02/04/2024 4:26:02 PM Ordering Provider: DIEGO Escobar [facility] ([place]) .Auto Diffon 01-29-2024 Basophil, Absolute 0.0 10 3/mcL Normal 0.0-0.2 [facility] ([place]) Comment on above: Performed By: #### A 1C, CBC, GFR, CMP, ANEU, LIPID, TSH, ADIFF #### [id number] [place], [place] [address] Basophils/100 WBC (Bld) 0.3 % Normal 0.0-2.5 [facility] ([place]) Comment on above: Performed By: #### A 1C, CBC, GFR, CMP, ANEU, LIPID, TSH, ADIFF #### [address] [place], [place] [address] Eosinophil, Absolute 0.1 10 3/mcL Normal 0.0-0.4 [facility] ([place]) Comment on above: Performed By: #### A 1C, CBC, GFR, CMP, ANEU, LIPID, TSH, ADIFF #### [address] [address] Eosinophils/100 WBC (Bld) 1.3 % Normal 0.0-7.0 [facility] ([place]) Comment on above: Performed By: #### A 1C, CBC, GFR, CMP, ANEU, LIPID, TSH, ADIFF #### [address] [address] Lymphocyte, Absolute 0.9 10 3/mcL Normal 0.8-3.9 [facility] ([place]) Comment on above: Performed By: #### A 1C, CBC, GFR, CMP, ANEU, LIPID, TSH, ADIFF #### [address] [address] Lymphocytes/100 WBC (Bld) 16.6 % Normal 10.0-50.0 [facility] ([place]) Comment on above: Performed By: #### A 1C, CBC, GFR, CMP, ANEU, LIPID, TSH, ADIFF #### [address] [address] Monocyte, Absolute 0.5 10 3/mcL Normal 0.2-1.0 [facility] ([place]) Comment on above: Performed By: #### A 1C, CBC, GFR, CMP, ANEU, LIPID, TSH, ADIFF #### [address] [address] Monocytes/100 WBC (Bld) 9.8 % Normal 1.7-13.0 [facility] ([place]) Comment on above: Performed By: #### A 1C, CBC, GFR, CMP, ANEU, LIPID, TSH, ADIFF #### [address] [address] Neutrophils/100 WBC (Bld) 72.0 % Normal 37.0-80.0 [facility] ([place]) Comment on above: Performed By: #### A 1C, CBC, GFR, CMP, ANEU, LIPID, TSH, ADIFF #### [address] [address] .GFRon 01-29-2024 GFR 72 ml/min/1.73sqm Normal [facility] ([place]) Comment on above: Result Comment: GFR Population mean for , Non- Americans Ages 20-29 = 116 mL/min/1.73 sq.m. Ages 30-39 = 107 mL/min/1.73 sq.m. Ages 40-49 = 99 mL/min/1.73 sq.m. Ages 50-59 = 93 mL/min/1.73 sq.m. Ages 60-69 = 85 mL/min/1.73 sq.m. Ages 70+ = 75 mL/min/1.73 sq.m. Chronic Kidney Disease: Less than 60 mL/min/1.73 square meters End Stage Renal Disease: Less than 15 mL/min/1.73 square meters Performed By: #### A 1C, CBC, GFR, CMP, ANEU, LIPID, TSH, ADIFF ####[address] [place], [place] [address] GFR Non- 60 ml/min/1.73sqm Normal [facility] ([place]) Comment on above: Result Comment: GFR Population mean for , Non- Americans Ages 20-29 = 116 mL/min/1.73 sq.m. Ages 30-39 = 107 mL/min/1.73 sq.m. Ages 40-49 = 99 mL/min/1.73 sq.m. Ages 50-59 = 93 mL/min/1.73 sq.m. Ages 60-69 = 85 mL/min/1.73 sq.m. Ages 70+ = 75 mL/min/1.73 sq.m. Chronic Kidney Disease: Less than 60 mL/min/1.73 square meters End Stage Renal Disease: Less than 15 mL/min/1.73 square meters Performed By: #### A 1C, CBC, GFR, CMP, ANEU, LIPID, TSH, ADIFF ####[address] [place], [place] [address] .NEUABSon 01-29-2024 Neutrophil, Absolute 3.9 10 3/mcL Normal 2.9-6.2 [facility] ([place]) Comment on above: Performed By: #### A 1C, CBC, GFR, CMP, ANEU, LIPID, TSH, ADIFF #### [address] [address] A1Con 01-29-2024 HbA1c (Bld) [Mass fraction] 5.6 % Normal 4.3-6.4 [facility] ([place]) Comment on above: Performed By: #### A 1C, CBC, GFR, CMP, ANEU, LIPID, TSH, ADIFF ####[address] [address] CBCon 01-29-2024 Erythrocyte distribution width (RBC) [Ratio] 13.5 % Normal 11.5-14.5 [facility] ([place]) Comment on above: Performed By: #### A 1C, CBC, GFR, CMP, ANEU, LIPID, TSH, ADIFF #### [place] [address] Hematocrit (Bld) [Volume fraction] 39.1 % Normal 37.0-47.0 [facility] ([place]) Comment on above: Performed By: #### A 1C, CBC, GFR, CMP, ANEU, LIPID, TSH, ADIFF #### [place] [address] Hgb 13.5 G/dL Normal 12.0-16.0 [facility] ([place]) Comment on above: Performed By: #### A 1C, CBC, GFR, CMP, ANEU, LIPID, TSH, ADIFF #### [address] [address] MCH (RBC) [Entitic mass] 27.9 pg Normal 27.0-31.2 [facility] ([place]) Comment on above: Performed By: #### A 1C, CBC, GFR, CMP, ANEU, LIPID, TSH, ADIFF #### [address] [address] MCHC 34.5 G/dL Normal 33.0-37.0 [facility] ([place]) Comment on above: Performed By: #### A 1C, CBC, GFR, CMP, ANEU, LIPID, TSH, ADIFF #### [place] [id number] MCV (RBC) [Entitic vol] 81.0 fL Normal 80.0-94.0 [facility] ([place]) Comment on above: Performed By: #### A 1C, CBC, GFR, CMP, ANEU, LIPID, TSH, ADIFF #### [address] [address] Platelet 211 10 3/mcL Normal 130-400 [facility] ([place]) Comment on above: Performed By: #### A 1C, CBC, GFR, CMP, ANEU, LIPID, TSH, ADIFF #### [address] [address] Platelet mean volume (Bld) [Entitic vol] 8.3 fL Normal 7.4-10.4 [facility] ([place]) Comment on above: Performed By: #### A 1C, CBC, GFR, CMP, ANEU, LIPID, TSH, ADIFF #### [address] [address] RBC 4.83 10 6/mcL Normal 4.20-5.40 [facility] ([place]) Comment on above: Performed By: #### A 1C, CBC, GFR, CMP, ANEU, LIPID, TSH, ADIFF #### [address] [address] WBC 5.4 10 3/mcL Normal 4.6-10.8 [facility] ([place]) Comment on above: Performed By: #### A 1C, CBC, GFR, CMP, ANEU, LIPID, TSH, ADIFF #### [address] [address] CMPon 01-29-2024 Albumin Level 3.8 G/dL Normal 3.4-4.8 [facility] ([place]) Comment on above: Performed By: #### A 1C, CBC, GFR, CMP, ANEU, LIPID, TSH, ADIFF ####[address] [place], [place] [address] Albumin/Globulin [Mass ratio] 1.4 {ratio} Normal 1.1-2.5 [facility] ([place]) Comment on above: Performed By: #### A 1C, CBC, GFR, CMP, ANEU, LIPID, TSH, ADIFF ####[facility] [place], [place] [address] ALP [Catalytic activity/Vol] 61 U/L Normal 40-135 [facility] ([place]) Comment on above: Performed By: #### A 1C, CBC, GFR, CMP, ANEU, LIPID, TSH, ADIFF ####[address] [place], [place] [address] ALT [Catalytic activity/Vol] 19 U/L Normal 14-59 [facility] ([place]) Comment on above: Performed By: #### A 1C, CBC, GFR, CMP, ANEU, LIPID, TSH, ADIFF ####[address] [place], [place] [address] AST [Catalytic activity/Vol] 18 U/L Normal 10-40 [facility] ([place]) Comment on above: Performed By: #### A 1C, CBC, GFR, CMP, ANEU, LIPID, TSH, ADIFF ####[address] [place], [place] [address] Bili Total 0.8 mg/dL Normal 0.2-1.0 [facility] ([place]) Comment on above: Result Comment: Use of this assay is not recommended for patients undergoing treatment with eltrombopag due to the potential for falsely elevated results. Performed By: #### A 1C, CBC, GFR, CMP, ANEU, LIPID, TSH, ADIFF ####[address] [place], [place] [address] BUN/Creatinine Ratio 19 ratio Normal 7-27 [facility] ([place]) Comment on above: Performed By: #### A 1C, CBC, GFR, CMP, ANEU, LIPID, TSH, ADIFF ####[address] [place], [place] [address] Calcium [Mass/Vol] 9.0 mg/dL Normal 8.4-10.2 [facility] ([place]) Comment on above: Performed By: #### A 1C, CBC, GFR, CMP, ANEU, LIPID, TSH, ADIFF ####[address] [place], [place] [address] Chloride [Moles/Vol] 105 mmol/L Normal 98-107 [facility] ([place]) Comment on above: Performed By: #### A 1C, CBC, GFR, CMP, ANEU, LIPID, TSH, ADIFF ####[address] [place], [place] [address] CO2 [Moles/Vol] 31 mmol/L Normal 23-31 [facility] ([place]) Comment on above: Performed By: #### A 1C, CBC, GFR, CMP, ANEU, LIPID, TSH, ADIFF ####[address] [place], [place] [address] Creatinine [Mass/Vol] 0.93 mg/dL Normal 0.55-1.02 [facility] ([place]) Comment on above: Performed By: #### A 1C, CBC, GFR, CMP, ANEU, LIPID, TSH, ADIFF ####[address] [place], [place] [address] Electrolyte Balance 7.0 mEq/L Normal 4.0-15.0 [facility] ([place]) Comment on above: Performed By: #### A 1C, CBC, GFR, CMP, ANEU, LIPID, TSH, ADIFF ####[address] [place], [place] [address] Globulin 2.7 G/dL Normal [facility] ([place]) Comment on above: Performed By: #### A 1C, CBC, GFR, CMP, ANEU, LIPID, TSH, ADIFF ####[address] [place], [place] [address] Glucose [Mass/Vol] 99 mg/dL Normal 83-110 [facility] ([place]) Comment on above: Performed By: #### A 1C, CBC, GFR, CMP, ANEU, LIPID, TSH, ADIFF ####[place] [address] [place], [place] [address] Potassium [Moles/Vol] 4.9 mmol/L Normal 3.5-5.1 [facility] ([place]) Comment on above: Performed By: #### A 1C, CBC, GFR, CMP, ANEU, LIPID, TSH, ADIFF ####[place] [address] [place], [place] [address] Sodium [Moles/Vol] 143 mmol/L Normal 136-145 [facility] ([place]) Comment on above: Performed By: #### A 1C, CBC, GFR, CMP, ANEU, LIPID, TSH, ADIFF ####[address] [place], [place] [address] Total Protein 6.5 G/dL Normal 6.4-8.2 [facility] ([place]) Comment on above: Performed By: #### A 1C, CBC, GFR, CMP, ANEU, LIPID, TSH, ADIFF ####[address] [place], [place] [address] Urea nitrogen [Mass/Vol] 18 mg/dL Normal 7-18 [facility] ([place]) Comment on above: Performed By: #### A 1C, CBC, GFR, CMP, ANEU, LIPID, TSH, ADIFF ####[address] [place], [place] [address] LABORATORYOrdered By: SYSTEM SYSTEM on 01-29-2024 Albumin BCP dye [Mass/Vol] 3.8 G/dL Normal 3.4 - 4.8 G/dL AO ADM SS Albumin/Globulin [Mass ratio] 1.4 {ratio} Normal 1.1 - 2.5 ratio AO ADM SS ALP [Catalytic activity/Vol] 61 U/L Normal 40 - 135 U/L AO ADM SS ALT With P-5'-P [Catalytic activity/Vol] 19 U/L Normal 14 - 59 U/L AO ADM SS AST With P-5'-P [Catalytic activity/Vol] 18 U/L Normal 10 - 40 U/L AO ADM SS Basophil, Absolute 0.0 103/mcL Normal 0.0 - 0.2 10^3/mcL AO Workflow SS Basophils/100 WBC (Bld) 0.3 % Normal 0.0 - 2.5 % AO Workflow SS Bilirubin [Mass/Vol] 0.8 mg/dL Normal 0.2 - 1 .0 mg/dL AO ADM SS Comment on above: Interpretive Data: U se of this assay is not recommended for patients undergoing treatment with eltrombopag due to the potential for falsely elevated results. Calcium [Mass/Vol] 9.0 mg/dL Normal 8.4 - 10. 2 mg/dL AO ADM SS Chloride [Moles/Vol] 105 mmol/L Normal 98 - 10 7 mmol/L AO ADM SS CO2 [Moles/Vol] 31 mmol/L Normal 23 - 31 mmol/L AO ADM SS Creatinine [Mass/Vol] 0.93 mg/dL Normal 0.55 - 1.02 mg/dL AO ADM SS Electrolyte Balance 7.0 mEq/L Normal 4.0 - 15 .0 mEq/L AO ADM SS Eosinophil, Absolute 0.1 103/mcL Normal 0.0 - 0 .4 10^3/mcL AO Workflow SS Eosinophils/100 WBC (Bld) 1.3 % Normal 0.0 - 7.0 % AO Workflow SS Erythrocyte distribution width (RBC) [Ratio] 13.5 % Normal 11.5 - 14.5 % AO Workflow SS GFR/1.73 sq M.predicted among blacks MDRD (S/P/Bld) [Vol rate/Area] 72 ml/min/1.73sqm Invalid Interpretation Code AO Chemistry S Comment on above: Interpretive Data: GFR Population mean for , Non- Americans Ages 20-29 = 116 mL/min/1.73 sq.m. Ages 30-39 = 107 mL/min/1.73 sq.m. Ages 40-49 = 99 mL/min/1.73 sq.m. Ages 50-59 = 93 mL/min/1.73 sq.m. Ages 60-69 = 85 mL/min/1.73 sq.m. Ages 70+ = 75 mL/min/1.73 sq.m. Chronic Kidney Disease: Less than 60 mL/min/1.73 square meters End Stage Renal Disease: Less than 15 mL/min/1.73 square meters GFR/1.73 sq M.predicted among non-blacks MDRD (S/P/Bld) [Vol rate/Area] 60 ml/min/1.73sqm Invalid Interpretation Code AO Chemistry S Comment on above: Interpretive Data: GFR Population mean for , Non- Americans Ages 20-29 = 116 mL/min/1.73 sq.m. Ages 30-39 = 107 mL/min/1.73 sq.m. Ages 40-49 = 99 mL/min/1.73 sq.m. Ages 50-59 = 93 mL/min/1.73 sq.m. Ages 60-69 = 85 mL/min/1.73 sq.m. Ages 70+ = 75 mL/min/1.73 sq.m. Chronic Kidney Disease: Less than 60 mL/min/1.73 square meters End Stage Renal Disease: Less than 15 mL/min/1.73 square meters Globulin 2.7 G/dL Invalid Interpretation Code AO ADM SS Glucose [Mass/Vol] 99 mg/dL Normal 83 - 110 mg/dL AO ADM SS HbA1c (Bld) [Mass fraction] 5.6 % Normal 4.3 - 6.4 % AO ADM SS Hematocrit (Bld) [Volume fraction] 39.1 % Normal 37.0 - 47.0 % AO Workflow SS Hemoglobin (Bld) [Mass/Vol] 13.5 G/dL Normal 12.0 - 16.0 G/dL AO Workflow SS Lymphocyte, Absolute 0.9 103/mcL Normal 0.8 - 3 .9 10^3/mcL AO Workflow SS Lymphocytes/100 WBC (Bld) 16.6 % Normal 10.0 - 50.0 % AO Workflow SS MCH (RBC) [Entitic mass] 27.9 pg Normal 27.0 - 31.2 pg AO Workflow SS MCHC 34.5 G/dL Normal 33.0 - 37.0 G/dL AO Workflow SS MCV (RBC) [Entitic vol] 81.0 fL Normal 80.0 - 94.0 fL AO Workflow SS Monocyte, Absolute 0.5 103/mcL Normal 0.2 - 1.0 10^3/mcL AO Workflow SS Monocytes/100 WBC (Bld) 9.8 % Normal 1.7 - 13.0 % AO Workflow SS Neutrophil, Absolute 3.9 103/mcL Normal 2.9 - 6 .2 10^3/mcL AO Workflow SS Neutrophils/100 WBC (Bld) 72.0 % Normal 37.0 - 80.0 % AO Workflow SS Platelet mean volume (Bld) [Entitic vol] 8.3 fL Normal 7.4 - 10.4 fL AO Workflow SS Platelets (Bld) [#/Vol] 211 103/mcL Normal 130 - 400 10^3/mcL AO Workflow SS Potassium [Moles/Vol] 4.9 mmol/L Normal 3.5 - 5.1 mmol/L AO ADM SS Protein [Mass/Vol] 6.5 G/dL Normal 6.4 - 8.2 G/dL AO ADM SS RBC (Bld) [#/Vol] 4.83 106/mcL Normal 4.20 - 5.4 0 10^6/mcL AO Workflow SS Sodium [Moles/Vol] 143 mmol/L Normal 136 - 145 mmol/L AO ADM SS TSH Qn 1.43 m[IU]/L Normal 0.36 - 3.74 mcIU/mL AO ADM SS Urea nitrogen [Mass/Vol] 18 mg/dL Normal 7 - 18 mg/dL AO ADM SS Urea nitrogen/Creatinine [Mass ratio] 19 ratio Normal 7 - 27 ratio AO ADM SS WBC (Bld) [#/Vol] 5.4 103/mcL Normal 4.6 - 10.8 10^3/mcL AO Workflow SS LABORATORYOrdered By: Mikki Collins on 01-29-2024 Cholesterol [Mass/Vol] 207 mg/dL High 0 - 200 mg/dL AO ADM SS Comment on above: Interpretive Data: C holesterol Reference Interval: Less than 200 Desirable 200-239 Borderline high risk 240 and above High risk Cholesterol in HDL [Mass/Vol] 67 mg/dL High 40 - 60 mg/dL AO ADM SS Cholesterol in LDL [Mass/Vol] 124 mg/dL Normal 0 - 130 mg/dL AO ADM SS Triglyceride [Mass/Vol] 79 mg/dL Normal 0 - 150 mg/dL AO ADM SS Comment on above: Interpretive Data: T riglyceride Reference Interval: Less than 150 Normal 150-199 Borderline high risk 200-499 High risk 500 or higher Very high risk LIPIDon 01-29-2024 Cholesterol [Mass/Vol] 207 mg/dL High 0-200 [facility] ([place]) Comment on above: Result Comment: Chol esterol Reference Interval: Less than 200 Desirable 200-239 Borderline high risk 240 and above High risk Performed By: #### A 1C, CBC, GFR, CMP, ANEU, LIPID, TSH, ADIFF ####[address] [place], [place] [address] Cholesterol in HDL [Mass/Vol] 67 mg/dL High 40-60 [facility] ([place]) Comment on above: Performed By: #### A 1C, CBC, GFR, CMP, ANEU, LIPID, TSH, ADIFF ####[address] [place], [place] [address] Cholesterol in LDL [Mass/Vol] 124 mg/dL Normal 0-130 [facility] ([place]) Comment on above: Performed By: #### A 1C, CBC, GFR, CMP, ANEU, LIPID, TSH, ADIFF ####[address] [place], [place] [address] Triglyceride [Mass/Vol] 79 mg/dL Normal 0-150 [facility] [place]) Comment on above: Result Comment: Trig lyceride Reference Interval: Less than 150 Normal 150-199 Borderline high risk 200-499 High risk 500 or higher Very high risk Performed By: #### A 1C, CBC, GFR, CMP, ANEU, LIPID, TSH, ADIFF ####[address] [place], [place] [address] TSHon 01-29-2024 TSH Qn 1.43 m[IU]/L Normal 0.36-3.74 [facility] ([place]) Comment on above: Performed By: #### A 1C, CBC, GFR, CMP, ANEU, LIPID, TSH, ADIFF #### [address] [place], [place] [address] Non-Branch Mechanic Cytology Reporton Non-Branch Mechanic Cytology Report . Pathology Reports Accession: Collected Date/Time: Received Date/Time: Pathologist: [id number] 01/11/2024 05:45 EDT 01/12/2024 08:20 EDT MILANA BURDEN MD Non-Branch Mechanic Cytology Report CLINICAL INFORMATION: Bladder Cancer DIAGNOSTIC CATEGORY: ATYPICAL UROTHELIAL CELLS. SPECIMEN: Urine GROSS DESCRIPTION: # of Monolayers: 1 Volume (ml) 80 Color: fixed clear yellow SUGGESTION/EDUCATIONAL NOTES: This sample was evaluated using standardized diagnostic criteria published in the '[employer] System for Reporting Urinary Cytology '(TPS), Second edition, 2021. The following Risk of High-grade urothelial carcinoma is based on published data from TPS. Individual institutional rates may vary. TPS Cytology Diagnostic category Risk of high-grade malignancy Non diagnostic 0-16% Negative for High grade urothelial carcinoma 8-24% Low grade urothelial neoplasm 0-44% Atypical Urothelial cells 24-53% Suspicious for High grade urothelial carcinoma 59-94% Malignant- High grade urothelial carcinoma 76-100% Electronically Signed by Pathology Report verified by [facility] Screened by: RITA AK Electronically signed by MILANA BURDEN Sign-Out Date: 01/13/2024 12:55 Performing Lab: [facility], [address] [place] [address] Pathology Dept Disclaimer If ancillary studies were utilized, the following Laboratory Developed Test (LDT) disclaimer will apply: Under CLIA requirements, [facility] is qualified to perform high complexity testing. For all ancillary stains, positive and negative controls stain appropriately. Performance characteristics of immunohistochemical and chromogenic in-situ hybridization tests have been determined by [facility]. These tests are used for clinical purposes, They should not be regarded as investigational or for research. Normal [facility] ([place]) XR HIP 2-3 VIEWS RIGHTon XR HIP 2-3 VIEWS RIGHT ORIGINAL EXAMINATION: 2 XRAY VIEWS OF THE RIGHT HIP 01/07/2024 1:32 pm COMPARISON: None. HISTORY: ORDERING SYSTEM PROVIDED HISTORY: Reason for Exam: hip pain low back, rt hip pain x2 weeks, NKI FINDINGS: There is no acute fracture or dislocation. The joint space is maintained. There are no osseous lesions. The soft tissues are unremarkable. IMPRESSION: Unremarkable right hip. Interpreted by: Placido Bello Preliminary Report By: Placido Bello Electronically signed By Placido Bello Dictated Date: 01/07/2024 3:01:21 PM Prelim Date: 01/07/2024 3:01:55 PM Sign Date: 01/07/2024 3:01:55 PM Ordering Provider: CHRISTIANA BATISTA Normal [facility] [place]) XR SPINE LUMBAR AP/LATon XR SPINE LUMBAR AP/LAT ORIGINAL EXAMINATION: 3 XRAY VIEWS OF THE LUMBAR SPINE01/07/2024 1:31 pm LUMBAR SPINE 2 or 3 VIEWS COMPARISON: None HISTORY: ORDERING SYSTEM PROVIDED HISTORY: Reason for Exam: low back pain low back, rt hip pain x2 weeks, NKI FINDINGS: There is dextroscoliosis. Vertebral body heights are maintained. Advanced degenerative disc disease at L4 and L5 with milder degenerative changes at other levels. There is also advanced multilevel facet arthropathy in the lower lumbar spine. There is grade 1 anterolisthesis of L4 on L5. IMPRESSION: Advanced degenerative disc disease and facet arthropathy with grade 1 anterolisthesis at L4-L5 Interpreted by: Placido Bello Preliminary Report By: Placido Bello Electronically signed By Placido Bello Dictated Date: 01/07/2024 2:58:06 PM Prelim Date: 01/07/2024 3:01:13 PM Sign Date: 01/07/2024 3:01:13 PM Ordering Provider: CHRISTIANA Escobar [facility] [place]) Pelvic (Non )on Pelvic (Non ) [facility] Imaging Services [address] [place] [address] Pelvic (Non ) MR#: [id number] Acct: [id number] Name: RENAE VIDAL Rep #: [id number] : 1955 F 68 From: Harsh Sanabria PCP: Dr. Christiana Batista, DO Status: [facility] Study: Pelvic (Non ) Date of Exam: 11/30/23 Exam# [id number] Ordering Dr: Harleen Franklin MD [id number] INDICATION: Abnormal uterine and vaginal bleeding, unspecified EXAMINATION: Ultrasound US Pelvis Non-OB Complete TECHNIQUE: Transabdominal pelvic ultrasound was performed. The exam is limited without endovaginal study. Grayscale, spectral waveform, and color flow Doppler evaluation of the adnexa. COMPARISON: No relevant prior comparison study available FINDINGS: UTERUS: Anteverted. The uterus measures 5.4 x 4.1 x 2 cm. There is no uterine mass. The endometrial stripe measures 3.2 mm in AP diameter which is within normal limits. There is minimal fluid within the endometrial cavity. Nabothian cyst is seen at the cervix. RIGHT OVARY: Not visualized due to overlying bowel gas. LEFT OVARY: Not visualized due to overlying bowel gas. FREE FLUID: None. US/Pelvic (Non ) IMPRESSION: 1. Nonspecific minimal fluid within the endometrial canal. 2. Nabothian cyst in the cervix. 3. Nonvisualization both ovaries. Electronically Signed: Harsh Almanzar MD at 16:01 EST , CC: Dr. Harleen Franklin MD; Dr. Christiana Batista DO Title Search Manager: Signed Normal [facility] Abdomen Single Viewon 2023 Abdomen Single View [facility] Imaging Services [address] [place] [address] Abdomen Single View MR#: [id number] Acct: [id number] Name: RENAE VIDAL Rep #: [id number] : 1955 F 68 From: Diego Hwang MD PCP: Dr. Christiana Batista DO Status: REG CLI Study: Abdomen Single View Date of Exam: 11/12/23 Exam# [id number] Ordering Dr: Harleen Franklin MD [id number] STUDY: X-RAY - ABDOMEN/PELVIS REASON FOR EXAM: Female, 68 years old. KUB- STONES TECHNIQUE: KUB COMPARISON: May 21, 2023 FINDINGS: Normal visualized lung bases. There is an unremarkable bowel gas pattern. There is no demonstrated free abdominal air. The visualized liver, spleen and kidneys are grossly normal in size and morphology. There is tiny calcific density in the left upper quadrant which may represent renal or proximal ureteral calculus. There is mild dextroscoliosis of the thoracolumbar spine. RAD/Abdomen Single View IMPRESSION: Questionable tiny left renal or proximal ureteral calculus. If clinically indicated ultrasound or CT would be helpful for further evaluation Electronically Signed: Diego Hwang MD at 22:09 EST , CC: Dr. Harleen Franklin MD; Dr. Christiana Batista DO Title Search Manager: Signed Normal [facility] Pulmonary Visit Reporton Pulmonary Visit Report [facility] [address] [place] [address] OFFICE VISIT Date of Service: 11/02/23 MR#: [id number] Acct: [id number] Name: RENAE VIDAL Rep #: [id number] : 1955 Provider: TSERING Simmons Age/Sex: 68/F [place] [facility] Status: Signed Assessment and Plan Assessment and Plan (1) Stage 1 mild COPD by GOLD classification: Status: Acute Comment: FEV1 78% Plan: Returned to baseline and is asymptomatic at this time. Not currently requiring any maintenance medications. Follow-up in the office in March 2024. Contact the office with any recurrent symptoms. (2) Multiple pulmonary nodules: Status: Chronic Comment: Stable 02/2023 Plan: Repeat LDCT scheduled for February 2024. Follow-up in the office in March to discuss test results. Orders: Orders NIOX 11/02/23 R05.9 - Cough, unspecified Low Dose CT Lung Screening 02/26/24 F17.200 - Nicotine dependence, unspecified, uncomplicated, R91.8 - Other nonspecific abnormal finding of lung field Plan Details Follow Up: 03/27/24 (A) HPI Cough Chief Complaint: cough HPI Comments Details: This patient presents to the office today to discuss a cough. She is ambulatory and currently on room air. If you recall, this patient was previously seen in this office and followed for stage I mild COPD and annual LDCT. She was last seen in the office here in March 2022 with a return visit suggested for March 2023, that did not occur. The patient was recently treated by her primary care doctor for an upper respiratory infection. She initially was treated with antibiotics for 5 days along with a short burst of steroids. Unfortunately, symptoms did not improve. On return to PCP office she was treated for an additional 10 days and a repeat of the steroids, this time it was a steroid taper. The patient reports that after completing a total of 15 days on the antibiotics his symptoms finally began to improve. At this time she denies any difficulty with shortness of breath. She denies any cough, chest tightness, chest pain or palpitations. She has not had any wheezing. She denies any fever, chills or body aches. The patient reports that she has returned to the office because during her workup for the upper respiratory infection she had a chest x-ray. The chest x-ray indicated inflammation consistent with an infection". And was also told that her "nodules were inflamed". They suggested that she have a CT scan of the chest. The patient reported that she was already established with pulmonary and had a plan for a CT scan of the chest in the near future anyway. Intake Vital Signs 04/23/22 05:48 10/07/23 13:22 11/02/23 07:57 Height 5 ft 4.5 in 5 ft 4.5 in 5 ft 4.5 in Weight: 107 lb BMI 18.1 BP 151/90 H Blood Pressure Location Lt brachial Position Sitting Respiration 18 Pulse 51 L Pulse Source Monitor Temp 96.9 F L Temperature Source Temporal Artery Pulse Oximetry (%) 99 Oxygen Delivery Method room air Intake Visit Reasons: Cough Chief Complaint: Cough Nibbler Operator Required: No DME Vendor: none Accompanied by: Self Is patient in pain?: No Allergies No Known Allergies Allergy (Verified 11/02/23 13:44) Medications multivitamin 1 tab PO DAILY 09/23/21 [History Confirmed 11/02/23] ibuprofen 200 mg tablet (Advil) 400 mg PO BID 10/06/21 [History Confirmed 11/02/23] polyethylene glycol 3350 17 gram/dose oral powder (Miralax) 17 g PO DAILY 11/02/23 [History Confirmed 11/02/23] [facility] Medical History (Reviewed 11/02/23 @ 13:50 by Ami Simmons PRINTER REPAIR TECHNICIAN, PRINTER REPAIR TECHNICIAN-C) Arthritis Bladder cancer Cardiology follow-up encounter Former smoker History of atrial fibrillation History of irregular heartbeat Hydronephrosis Kidney stones Post-menopausal Ureteral calculus Wears glasses Surgical History (Reviewed 11/02/23 @ 13:50 by Ami Simmons PRINTER REPAIR TECHNICIAN, PRINTER REPAIR TECHNICIAN-C) History of loop recorder History of tonsillectomy and adenoidectomy Hx of dilation and curettage Hx of hernia repair Hx of prior ablation treatment Hx of surgical procedure Social History (Reviewed 11/02/23 @ 13:50 by Ami Simmons PRINTER REPAIR TECHNICIAN, PRINTER REPAIR TECHNICIAN-C) Smoking Status: Former smoker Review of Systems Resp Respiratory: Yes as per HPI Exam Const Constitutional: Positive conversant, cooperative, in no acute respiratory distress, healthy appearing, well developed, well nourished, good hygiene and thin Head Head: Yes normocephalic, Yes atraumatic and No cyanosis of lips/distal nose Eyes Eye: Positive clear conjunctiva; Negative nystagmus Ears Ear: Positive hearing normal and external ears normal Nose Nose: Yes external nose normal Mouth Mouth: Positive oral mucosae normal Neck Neck: Positive normal visual inspection, full ROM and trach (more content not included)... Normal [facility] XR CHEST 2 VIEWSon 4 XR CHEST 2 VIEWS ORIGINAL EXAMINATION: TWO XRAY VIEWS OF THE CHEST 10/05/2023 7:22 am COMPARISON: CT thorax 09/26/2021 HISTORY: ORDERING SYSTEM PROVIDED HISTORY: Reason for Exam: Cough, patient is concerned she has pneumonia history of bladder cancer. FINDINGS: The cardiomediastinal silhouette is normal. The aorta is atherosclerotic. Cardiac monitoring device projects over the left chest. There is right upper lung nodularity with a focal 9 mm nodule projecting over the anterior right 2nd rib. Additional adjacent smaller nodularity. Milder nodularity is also seen at the left apex. No pleural effusion, vascular congestion, or pneumothorax. Biapical scarring. Linear airspace disease at the lingula could reflect atelectasis or scarring. Multilevel degenerative changes in the spine. IMPRESSION: Biapical nodularity could be due to small areas of focal airspace disease or true pulmonary nodules. With the provided history of cancer and concerning nodules on the prior CT, CT thorax is recommended. Interpreted by: Karissa Srivastava MD Preliminary Report By: Karissa Srivastava MD Electronically signed By Karissa Srivastava MD Dictated Date: 10/06/2023 4:12:06 PM Prelim Date: 10/06/2023 4:17:26 PM Sign Date: 10/06/2023 4:17:26 PM Ordering Provider: LINDEN JONES [facility] ([place]) .Auto Diffon 08-07-2023 Basophil, Absolute 0.0 10 3/mcL Normal 0.0-0.2 [facility] ([place]) Comment on above: Performed By: #### C BC, ADIFF, LIPID, TSH, CMP, A1C, GFR, ANEU ####[address] [place], [place] [address] Basophils/100 WBC (Bld) 0.5 % Normal 0.0-2.5 [facility] ([place]) Comment on above: Performed By: #### C BC, ADIFF, LIPID, TSH, CMP, A1C, GFR, ANEU ####[address] [place], [place] [address] Eosinophil, Absolute 0.1 10 3/mcL Normal 0.0-0.4 [facility] ([place]) Comment on above: Performed By: #### C BC, ADIFF, LIPID, TSH, CMP, A1C, GFR, ANEU ####[address] [place], [place] [address] Eosinophils/100 WBC (Bld) 1.4 % Normal 0.0-7.0 [facility] ([place]) Comment on above: Performed By: #### C BC, ADIFF, LIPID, TSH, CMP, A1C, GFR, ANEU ####[address] [place], [place] [address] Lymphocyte, Absolute 0.9 10 3/mcL Normal 0.8-3.9 [facility] ([place]) Comment on above: Performed By: #### C BC, ADIFF, LIPID, TSH, CMP, A1C, GFR, ANEU ####[address] [place], [place] [address] Lymphocytes/100 WBC (Bld) 21.5 % Normal 10.0-50.0 [facility] ([place]) Comment on above: Performed By: #### C BC, ADIFF, LIPID, TSH, CMP, A1C, GFR, ANEU ####[address] [place], [place] [address] Monocyte, Absolute 0.4 10 3/mcL Normal 0.2-1.0 [facility] ([place]) Comment on above: Performed By: #### C BC, ADIFF, LIPID, TSH, CMP, A1C, GFR, ANEU ####[address] [place], [place] [address] Monocytes/100 WBC (Bld) 10.1 % Normal 1.7-13.0 [facility] ([place]) Comment on above: Performed By: #### C BC, ADIFF, LIPID, TSH, CMP, A1C, GFR, ANEU ####[address] [place], [place] [address] Neutrophils/100 WBC (Bld) 66.5 % Normal 37.0-80.0 [facility] ([place]) Comment on above: Performed By: #### C BC, ADIFF, LIPID, TSH, CMP, A1C, GFR, ANEU ####[address] [place], [place] [address] .GFRon 08-07-2023 GFR Non- 64 ml/min/1.73sqm Normal [facility] ([place]) Comment on above: Result Comment: GFR Population mean for , Non- Americans Ages 20-29 = 116 mL/min/1.73 sq.m. Ages 30-39 = 107 mL/min/1.73 sq.m. Ages 40-49 = 99 mL/min/1.73 sq.m. Ages 50-59 = 93 mL/min/1.73 sq.m. Ages 60-69 = 85 mL/min/1.73 sq.m. Ages 70+ = 75 mL/min/1.73 sq.m. Chronic Kidney Disease: Less than 60 mL/min/1.73 square meters End Stage Renal Disease: Less than 15 mL/min/1.73 square meters Performed By: #### C BC, ADIFF, LIPID, TSH, CMP, A1C, GFR, ANEU ####[address] [place], [place] [address] GFR 77 ml/min/1.73sqm Normal [facility] ([place]) Comment on above: Result Comment: GFR Population mean for , Non- Americans Ages 20-29 = 116 mL/min/1.73 sq.m. Ages 30-39 = 107 mL/min/1.73 sq.m. Ages 40-49 = 99 mL/min/1.73 sq.m. Ages 50-59 = 93 mL/min/1.73 sq.m. Ages 60-69 = 85 mL/min/1.73 sq.m. Ages 70+ = 75 mL/min/1.73 sq.m. Chronic Kidney Disease: Less than 60 mL/min/1.73 square meters End Stage Renal Disease: Less than 15 mL/min/1.73 square meters Performed By: #### C BC, ADIFF, LIPID, TSH, CMP, A1C, GFR, ANEU ####[address] [place], [place] [address] .NEUABSon 08-07-2023 Neutrophil, Absolute 2.7 10 3/mcL Low 2.9-6.2 [facility] ([place]) Comment on above: Performed By: #### C BC, ADIFF, LIPID, TSH, CMP, A1C, GFR, ANEU ####[address] [place], [place] [address] A1Con 08-07-2023 HbA1c (Bld) [Mass fraction] 5.5 % Normal 4.3-6.4 [facility] ([place]) Comment on above: Performed By: #### C BC, ADIFF, LIPID, TSH, CMP, A1C, GFR, ANEU ####[address] [place], [place] [address] CBCon 08-07-2023 Erythrocyte distribution width (RBC) [Ratio] 14.2 % Normal 11.5-14.5 [facility] ([place]) Comment on above: Performed By: #### C BC, ADIFF, LIPID, TSH, CMP, A1C, GFR, ANEU ####[address] [place], [place] [address] Hematocrit (Bld) [Volume fraction] 39.2 % Normal 37.0-47.0 [facility] ([place] Comment on above: Performed By: #### C BC, ADIFF, LIPID, TSH, CMP, A1C, GFR, ANEU ####[address] [place], [place] [address] Hgb 13.3 G/dL Normal 12.0-16.0 [facility] ([place] Comment on above: Performed By: #### C BC, ADIFF, LIPID, TSH, CMP, A1C, GFR, ANEU ####[address] [place], [place] [address] MCH (RBC) [Entitic mass] 27.6 pg Normal 27.0-31.2 [facility] ([place]) Comment on above: Performed By: #### C BC, ADIFF, LIPID, TSH, CMP, A1C, GFR, ANEU ####[address] [place], [place] [address] MCHC 34.0 G/dL Normal 33.0-37.0 [facility] ([place] Comment on above: Performed By: #### C BC, ADIFF, LIPID, TSH, CMP, A1C, GFR, ANEU ####[address] [place], [place] [address] MCV (RBC) [Entitic vol] 81.1 fL Normal 80.0-94.0 [facility] ([place]) Comment on above: Performed By: #### C BC, ADIFF, LIPID, TSH, CMP, A1C, GFR, ANEU ####[address] [place], [place] [address] Platelet 205 10 3/mcL Normal 130-400 [facility] ([place] Comment on above: Performed By: #### C BC, ADIFF, LIPID, TSH, CMP, A1C, GFR, ANEU ####[address] [place], [place] [address] Platelet mean volume (Bld) [Entitic vol] 8.2 fL Normal 7.4-10.4 [facility] ([place]) Comment on above: Performed By: #### C BC, ADIFF, LIPID, TSH, CMP, A1C, GFR, ANEU ####[address] [place], [place] [address] RBC 4.83 10 6/mcL Normal 4.20-5.40 [facility] [place] Comment on above: Performed By: #### C BC, ADIFF, LIPID, TSH, CMP, A1C, GFR, ANEU ####[address] [place], [place] [address] WBC 4.1 10 3/mcL Low 4.6-10.8 [facility] ([place] Comment on above: Performed By: #### C BC, ADIFF, LIPID, TSH, CMP, A1C, GFR, ANEU ####[address] [place], [place] [address] CMPon 08-07-2023 Albumin Level 3.6 G/dL Normal 3.4-4.8 [facility] ([place]) Comment on above: Performed By: #### C BC, ADIFF, LIPID, TSH, CMP, A1C, GFR, ANEU ####[address] [place], [place] [address] Albumin/Globulin [Mass ratio] 1.4 {ratio} Normal 1.1-2.5 [facility] [place]) Comment on above: Performed By: #### C BC, ADIFF, LIPID, TSH, CMP, A1C, GFR, ANEU ####[address] [place], [place] [address] ALP [Catalytic activity/Vol] 55 U/L Normal 40-135 [facility] ([place]) Comment on above: Performed By: #### C BC, ADIFF, LIPID, TSH, CMP, A1C, GFR, ANEU ####[address] [place], [place] [address] ALT [Catalytic activity/Vol] 20 U/L Normal 14-59 [facility] ([place]) Comment on above: Performed By: #### C BC, ADIFF, LIPID, TSH, CMP, A1C, GFR, ANEU ####[address] [place], [place] [address] AST [Catalytic activity/Vol] 19 U/L Normal 10-40 [facility] ([place]) Comment on above: Performed By: #### C BC, ADIFF, LIPID, TSH, CMP, A1C, GFR, ANEU ####[address] [place], [place] [address] Bili Total 0.5 mg/dL Normal 0.2-1.0 [facility] ([place]) Comment on above: Result Comment: Use of this assay is not recommended for patients undergoing treatment with eltrombopag due to the potential for falsely elevated results. Performed By: #### C BC, ADIFF, LIPID, TSH, CMP, A1C, GFR, ANEU ####[address] [place], [place] [address] BUN/Creatinine Ratio 16 ratio Normal 7-27 [facility] ([place]) Comment on above: Performed By: #### C BC, ADIFF, LIPID, TSH, CMP, A1C, GFR, ANEU ####[address] [place], [place] [address] Calcium [Mass/Vol] 9.0 mg/dL Normal 8.4-10.2 [facility] ([place]) Comment on above: Performed By: #### C BC, ADIFF, LIPID, TSH, CMP, A1C, GFR, ANEU ####[address] [place], [place] [address] Chloride [Moles/Vol] 106 mmol/L Normal 98-107 [facility] ([place]) Comment on above: Performed By: #### C BC, ADIFF, LIPID, TSH, CMP, A1C, GFR, ANEU ####[address] [place], [place] [address] CO2 [Moles/Vol] 30 mmol/L Normal 23-31 [facility] ([place]) Comment on above: Performed By: #### C BC, ADIFF, LIPID, TSH, CMP, A1C, GFR, ANEU ####[address] [place], [place] [address] Creatinine [Mass/Vol] 0.88 mg/dL Normal 0.55-1.02 [facility] ([place]) Comment on above: Performed By: #### C BC, ADIFF, LIPID, TSH, CMP, A1C, GFR, ANEU ####[address] [place], [place] [address] Electrolyte Balance 5.0 mEq/L Normal 4.0-15.0 [facility] ([place]) Comment on above: Performed By: #### C BC, ADIFF, LIPID, TSH, CMP, A1C, GFR, ANEU ####[address] [place], [place] [address] Globulin 2.5 G/dL Normal [facility] ([place]) Comment on above: Performed By: #### C BC, ADIFF, LIPID, TSH, CMP, A1C, GFR, ANEU ####[address] [place], [place] [address] Glucose [Mass/Vol] 103 mg/dL Normal 83-110 [facility] ([place]) Comment on above: Performed By: #### C BC, ADIFF, LIPID, TSH, CMP, A1C, GFR, ANEU ####[address] [place], [place] [address] Potassium [Moles/Vol] 4.6 mmol/L Normal 3.5-5.1 [facility] ([place]) Comment on above: Performed By: #### C BC, ADIFF, LIPID, TSH, CMP, A1C, GFR, ANEU ####[address] [place], [place] [address] Sodium [Moles/Vol] 141 mmol/L Normal 136-145 [facility] ([place]) Comment on above: Performed By: #### C BC, ADIFF, LIPID, TSH, CMP, A1C, GFR, ANEU ####[address] [place], [place] [address] Total Protein 6.1 G/dL Low 6.4-8.2 [facility] ([place]) Comment on above: Performed By: #### C BC, ADIFF, LIPID, TSH, CMP, A1C, GFR, ANEU ####[address] [place], [place] [address] Urea nitrogen [Mass/Vol] 14 mg/dL Normal 7-18 [facility] ([place]) Comment on above: Performed By: #### C BC, ADIFF, LIPID, TSH, CMP, A1C, GFR, ANEU ####[address] [place], [place] [address] LABORATORYOrdered By: SYSTEM SYSTEM on 08-07-2023 Albumin BCP dye [Mass/Vol] 3.6 G/dL Invalid Interpretation Code 3.4 - 4.8 G/dL AO ADM SS Albumin/Globulin [Mass ratio] 1.4 {ratio} Invalid Interpretation Code 1.1 - 2.5 ratio AO ADM SS ALP [Catalytic activity/Vol] 55 U/L Invalid Interpretation Code 40 - 135 U/L AO ADM SS ALT With P-5'-P [Catalytic activity/Vol] 20 U/L Invalid Interpretation Code 14 - 59 U/L AO ADM SS AST With P-5'-P [Catalytic activity/Vol] 19 U/L Invalid Interpretation Code 10 - 40 U/L AO ADM SS Basophil, Absolute 0.0 103/mcL Invalid Interpretation Code 0.0 - 0.2 10^3/mcL AO Workflow SS Basophils/100 WBC (Bld) 0.5 % Invalid Interpretation Code 0.0 - 2.5 % AO Workflow SS Bilirubin [Mass/Vol] 0.5 mg/dL Invalid Interpretation Code 0.2 - 1.0 mg/dL AO ADM SS Comment on above: Interpretive Data: U se of this assay is not recommended for patients undergoing treatment with eltrombopag due to the potential for falsely elevated results. Calcium [Mass/Vol] 9.0 mg/dL Invalid Interpretation Code 8.4 - 10.2 mg/dL AO ADM SS Chloride [Moles/Vol] 106 mmol/L Invalid Interpretation Code 98 - 107 mmol/L AO ADM SS CO2 [Moles/Vol] 30 mmol/L Invalid Interpretation Code 23 - 31 mmol/L AO ADM SS Creatinine [Mass/Vol] 0.88 mg/dL Invalid Interpretation Code 0.55 - 1.02 mg/dL AO ADM SS Electrolyte Balance 5.0 mEq/L Invalid Interpretation Code 4.0 - 15.0 mEq/L AO ADM SS Eosinophil, Absolute 0.1 103/mcL Invalid Interpretation Code 0.0 - 0.4 10^3/mcL AO Workflow SS Eosinophils/100 WBC (Bld) 1.4 % Invalid Interpretation Code 0.0 - 7.0 % AO Workflow SS Erythrocyte distribution width (RBC) [Ratio] 14.2 % Invalid Interpretation Code 11.5 - 14.5 % AO Workflow SS GFR/1.73 sq M.predicted among blacks MDRD (S/P/Bld) [Vol rate/Area] 77 ml/min/1.73sqm Invalid Interpretation Code AO Chemistry S Comment on above: Interpretive Data: GFR Population mean for , Non- Americans Ages 20-29 = 116 mL/min/1.73 sq.m. Ages 30-39 = 107 mL/min/1.73 sq.m. Ages 40-49 = 99 mL/min/1.73 sq.m. Ages 50-59 = 93 mL/min/1.73 sq.m. Ages 60-69 = 85 mL/min/1.73 sq.m. Ages 70+ = 75 mL/min/1.73 sq.m. Chronic Kidney Disease: Less than 60 mL/min/1.73 square meters End Stage Renal Disease: Less than 15 mL/min/1.73 square meters GFR/1.73 sq M.predicted among non-blacks MDRD (S/P/Bld) [Vol rate/Area] 64 ml/min/1.73sqm Invalid Interpretation Code AO Chemistry S Comment on above: Interpretive Data: GFR Population mean for , Non- Americans Ages 20-29 = 116 mL/min/1.73 sq.m. Ages 30-39 = 107 mL/min/1.73 sq.m. Ages 40-49 = 99 mL/min/1.73 sq.m. Ages 50-59 = 93 mL/min/1.73 sq.m. Ages 60-69 = 85 mL/min/1.73 sq.m. Ages 70+ = 75 mL/min/1.73 sq.m. Chronic Kidney Disease: Less than 60 mL/min/1.73 square meters End Stage Renal Disease: Less than 15 mL/min/1.73 square meters Globulin 2.5 G/dL Invalid Interpretation Code AO ADM SS Glucose [Mass/Vol] 103 mg/dL Invalid Interpretation Code 83 - 110 mg/dL AO ADM SS HbA1c (Bld) [Mass fraction] 5.5 % Invalid Interpretation Code 4.3 - 6.4 % AO ADM SS Hematocrit (Bld) [Volume fraction] 39.2 % Invalid Interpretation Code 37.0 - 47.0 % AO Workflow SS Hemoglobin (Bld) [Mass/Vol] 13.3 G/dL Invalid Interpretation Code 12.0 - 16.0 G/dL AO Workflow SS Lymphocyte, Absolute 0.9 103/mcL Invalid Interpretation Code 0.8 - 3.9 10^3/mcL AO Workflow SS Lymphocytes/100 WBC (Bld) 21.5 % Invalid Interpretation Code 10.0 - 50.0 % AO Workflow SS MCH (RBC) [Entitic mass] 27.6 pg Invalid Interpretation Code 27.0 - 31.2 pg AO Workflow SS MCHC 34.0 G/dL Invalid Interpretation Code 33.0 - 37.0 G/dL AO Workflow SS MCV (RBC) [Entitic vol] 81.1 fL Invalid Interpretation Code 80.0 - 94.0 fL AO Workflow SS Monocyte, Absolute 0.4 103/mcL Invalid Interpretation Code 0.2 - 1.0 10^3/mcL AO Workflow SS Monocytes/100 WBC (Bld) 10.1 % Invalid Interpretation Code 1.7 - 13.0 % AO Workflow SS Neutrophil, Absolute 2.7 103/mcL Invalid Interpretation Code 2.9 - 6.2 10^3/mcL AO Workflow SS Neutrophils/100 WBC (Bld) 66.5 % Invalid Interpretation Code 37.0 - 80.0 % AO Workflow SS Platelet mean volume (Bld) [Entitic vol] 8.2 fL Invalid Interpretation Code 7.4 - 10.4 fL AO Workflow SS Platelets (Bld) [#/Vol] 205 103/mcL Invalid Interpretation Code 130 - 400 10^3/mcL AO Workflow SS Potassium [Moles/Vol] 4.6 mmol/L Invalid Interpretation Code 3.5 - 5.1 mmol/L AO ADM SS Protein [Mass/Vol] 6.1 G/dL Invalid Interpretation Code 6.4 - 8.2 G/dL AO ADM SS RBC (Bld) [#/Vol] 4.83 106/mcL Invalid Interpretation Code 4.20 - 5.40 10^6/mcL AO Workflow SS Sodium [Moles/Vol] 141 mmol/L Invalid Interpretation Code 136 - 145 mmol/L AO ADM SS TSH Qn 2.45 m[IU]/L Invalid Interpretation Code 0.36 - 3.74 mcIU/mL AO ADM SS Urea nitrogen [Mass/Vol] 14 mg/dL Invalid Interpretation Code 7 - 18 mg/dL AO ADM SS Urea nitrogen/Creatinine [Mass ratio] 16 ratio Invalid Interpretation Code 7 - 27 ratio AO ADM SS WBC (Bld) [#/Vol] 4.1 103/mcL Invalid Interpretation Code 4.6 - 10.8 10^3/mcL AO Workflow SS LABORATORYOrdered By: Maria Teresa Rubalcava on 08-07-2023 Cholesterol [Mass/Vol] 207 mg/dL Invalid Interpretation Code 0 - 200 mg/dL AO ADM SS Comment on above: Interpretive Data: C holesterol Reference Interval: Less than 200 Desirable 200-239 Borderline high risk 240 and above High risk Cholesterol in HDL [Mass/Vol] 74 mg/dL Invalid Interpretation Code 40 - 60 mg/dL AO ADM SS Cholesterol in LDL [Mass/Vol] 125 mg/dL Invalid Interpretation Code 0 - 130 mg/dL AO ADM SS Triglyceride [Mass/Vol] 42 mg/dL Invalid Interpretation Code 0 - 150 mg/dL AO ADM SS Comment on above: Interpretive Data: T riglyceride Reference Interval: Less than 150 Normal 150-199 Borderline high risk 200-499 High risk 500 or higher Very high risk LIPIDon 08-07-2023 Cholesterol [Mass/Vol] 207 mg/dL High 0-200 [facility] ([place]) Comment on above: Result Comment: Chol esterol Reference Interval: Less than 200 Desirable 200-239 Borderline high risk 240 and above High risk Performed By: #### C BC, ADIFF, LIPID, TSH, CMP, A1C, GFR, ANEU ####N[address] [place], [place] [address] Cholesterol in HDL [Mass/Vol] 74 mg/dL High 40-60 [facility] ([place]) Comment on above: Performed By: #### C BC, ADIFF, LIPID, TSH, CMP, A1C, GFR, ANEU ####N[address] [place], [place] [address] Cholesterol in LDL [Mass/Vol] 125 mg/dL Normal 0-130 [facility] ([place]) Comment on above: Performed By: #### C BC, ADIFF, LIPID, TSH, CMP, A1C, GFR, ANEU ####[address] [place], [place] [address] Triglyceride [Mass/Vol] 42 mg/dL Normal 0-150 [facility] ([place]) Comment on above: Result Comment: Trig lyceride Reference Interval: Less than 150 Normal 150-199 Borderline high risk 200-499 High risk 500 or higher Very high risk Performed By: #### C BC, ADIFF, LIPID, TSH, CMP, A1C, GFR, ANEU ####[address] [place], [place] [address] TSHon 08-07-2023 TSH Qn 2.45 m[IU]/L Normal 0.36-3.74 [facility] ([place]) Comment on above: Performed By: #### C BC, ADIFF, LIPID, TSH, CMP, A1C, GFR, ANEU ####Nathan [address] [place], [place] [address] Non-Branch Mechanic Cytology Reporton Non-Branch Mechanic Cytology Report . Pathology Reports Accession: Collected Date/Time: Received Date/Time: Pathologist: [id number] 06/21/2023 07:16 EDT 06/22/2023 09:17 MD ASHWINI PA Non-Branch Mechanic Cytology Report CLINICAL INFORMATION: Bladder Cancer Preoperative diagnosis: Bladder Cancer Postoperative diagnosis: Bladder Cancer DIAGNOSTIC CATEGORY: ATYPICAL UROTHELIAL CELLS. SPECIMEN: URINE GROSS DESCRIPTION: # of Monolayers: 1 Volume (ml) 60 Color: fixed clear yellow SUGGESTION/EDUCATIONAL NOTES: This sample was evaluated using standardized diagnostic criteria published in the '[employer] System for Reporting Urinary Cytology '(TPS), Second edition, 2021. The following Risk of High-grade urothelial carcinoma is based on published data from TPS. Individual institutional rates may vary. TPS Cytology Diagnostic category Risk of high-grade malignancy Non diagnostic 0-16% Negative for High grade urothelial carcinoma 8-24% Low grade urothelial neoplasm 0-44% Atypical Urothelial cells 24-53% Suspicious for High grade urothelial carcinoma 59-94% Malignant- High grade urothelial carcinoma 76-100% Electronically Signed by Pathology Report verified by [facility] Screened by: STEVE Electronically signed by ASHWINI HUMPHRIES MD Sign-Out Date: 06/23/2023 10:44 Performing Lab: [facility], [address] [place] [address] Pathology Dept Disclaimer If ancillary studies were utilized, the following Laboratory Developed Test (LDT) disclaimer will apply: Under CLIA requirements, [facility] Laboratory is qualified to perform high complexity testing. For all ancillary stains, positive and negative controls stain appropriately. Performance characteristics of immunohistochemical and chromogenic in-situ hybridization tests have been determined by [facility]. These tests are used for clinical purposes, They should not be regarded as investigational or for research. Normal [facility] ([place]) Non-Branch Mechanic Cytology Report . Pathology Reports Accession: Collected Date/Time: Received Date/Time: Pathologist: [id number] 06/20/2023 07:17 EDT 06/22/2023 09:15 MD ASHWINI PA Non-Branch Mechanic Cytology Report CLINICAL INFORMATION: bladder cancer DIAGNOSTIC CATEGORY: NEGATIVE FOR HIGH GRADE UROTHELIAL CARCINOMA. SPECIMEN: URINE GROSS DESCRIPTION: # of Monolayers: 1 Volume (ml) 60 Color: FIXED CLEAR YELLOW SUGGESTION/EDUCATIONAL NOTES: This sample was evaluated using standardized diagnostic criteria published in the '[employer] System for Reporting Urinary Cytology '(TPS), Second edition, 2021. The following Risk of High-grade urothelial carcinoma is based on published data from TPS. Individual institutional rates may vary. TPS Cytology Diagnostic category Risk of high-grade malignancy Non diagnostic 0-16% Negative for High grade urothelial carcinoma 8-24% Low grade urothelial neoplasm 0-44% Atypical Urothelial cells 24-53% Suspicious for High grade urothelial carcinoma 59-94% Malignant- High grade urothelial carcinoma 76-100% Electronically Signed by Pathology Report verified by [facility] Screened by: STEVE Electronically signed by ASHWINI HUMPHRIES MD Sign-Out Date: 06/23/2023 10:42 Performing Lab: [facility], [address] [place] [address] Pathology Dept Disclaimer If ancillary studies were utilized, the following Laboratory Developed Test (LDT) disclaimer will apply: Under CLIA requirements, [facility] is qualified to perform high complexity testing. For all ancillary stains, positive and negative controls stain appropriately. Performance characteristics of immunohistochemical and chromogenic in-situ hybridization tests have been determined by [facility]. These tests are used for clinical purposes, They should not be regarded as investigational or for research. Normal [facility] ([place]) US RENALon 06-11-2023 US RENAL ORIGINAL EXAMINATION: LIMITED RETROPERITONEAL ULTRASOUND06/11/2023 10:30 am [...] Sign Date: 06/11/2023 5:07:36 PM Ordering Provider: DIEGO BEDOYA [facility] ([place]) Abdomen Single Viewon 2022 Abdomen Single View [facility] [address] [place] [address] Abdomen Single View MR#: [id number] Acct: [id number] Name: RENAE VIDAL Rep #: [id number] : 1955 F 68 From: Harsh Sanabria PCP: Dr. Christiana Batista, DO Status: REG CLI Study: Abdomen Single View Date of Exam: 05/21/23 Exam# [id number] Ordering Dr: Harleen Franklin MD INDICATION: RENAL CALCULUS EXAMINATION/TECHNIQUE: X-RAY - XR Abdomen 1 View COMPARISON: No prior examinations are available for comparison. FINDINGS: BOWEL GAS PATTERN: Non-obstructive. No bowel or stomach distention. FREE AIR: Not assessed on a single supine view. ORGANOMEGALY: Not seen. CALCIFICATIONS: No abnormal calcifications observed. LOWER CHEST: No acute pathology. BONES AND SOFT TISSUES: No acute pathology. RAD/Abdomen Single View IMPRESSION: 1. Non-obstructive bowel gas pattern. 2. No abnormal calcifications are seen. Electronically Signed: Harsh Almanzar MD at 15:59 EDT , CC: Dr. Harleen Franklin MD; Dr. Christiana Batista DO Title Search Manager: Signed Normal [facility] LABORATORYOrdered By: SYSTEM SYSTEM on 10-31-2021 Basophils (Bld) [#/Vol] 0.00 103/mcL Invalid Interpretation Code 0.00 - 0.27 10^3/mcL AH Remisol SS Basophils/100 WBC (Bld) 0.4 % Invalid Interpretation Code 0.0 - 2.5 % AH Remisol SS Calcium [Mass/Vol] 9.6 mg/dL Invalid Interpretation Code 8.7 - 10.4 mg/dL AH ADM SS Chloride [Moles/Vol] 104 mmol/L Invalid Interpretation Code 98 - 110 mEq/L AH ADM SS CO2 [Moles/Vol] 31 mmol/L Invalid Interpretation Code 22 - 32 mEq/L AH ADM SS Creatinine [Mass/Vol] 0.87 mg/dL Invalid Interpretation Code 0.50 - 1.20 mg/dL AH ADM SS Electrolyte Balance 4.0 mEq/L Invalid Interpretation Code 4.0 - 15.0 mEq/L AH ADM SS Eosinophils (Bld) [#/Vol] 0.00 103/mcL Invalid Interpretation Code 0.00 - 0.65 10^3/mcL AH Remisol SS Eosinophils/100 WBC (Bld) 0.9 % Invalid Interpretation Code 0.0 - 6.0 % AH Remisol SS Erythrocyte distribution width (RBC) [Ratio] 13.5 % Invalid Interpretation Code 11.5 - 15.5 % AH Remisol SS GFR/1.73 sq M.predicted among blacks MDRD (S/P/Bld) [Vol rate/Area] ml/min/1.73sqm Invalid Interpretation Code AH Chemistry S GFR/1.73 sq M.predicted among non-blacks MDRD (S/P/Bld) [Vol rate/Area] ml/min/1.73sqm Invalid Interpretation Code Chemistry S Glucose [Mass/Vol] 94 mg/dL Invalid Interpretation Code 82 - 115 mg/dL AH ADM SS Hematocrit (Bld) [Volume fraction] 38.4 % Invalid Interpretation Code 34.0 - 46.0 % AH Remisol SS Hemoglobin (Bld) [Mass/Vol] 13.0 G/dL Invalid Interpretation Code 12.0 - 16.0 G/dL AH Remisol SS Lymphocytes (Bld) [#/Vol] 1.00 103/mcL Invalid Interpretation Code 0.90 - 4.32 10^3/mcL AH Remisol SS Lymphocytes/100 WBC (Bld) 18.3 % Invalid Interpretation Code 20.0 - 40.0 % AH Remisol SS MCH (RBC) [Entitic mass] 27.3 pg Invalid Interpretation Code 27.0 - 33.0 pg AH Remisol SS MCHC (RBC) [Mass/Vol] 33.8 G/dL Invalid Interpretation Code 32.0 - 36.0 G/dL AH Remisol SS MCV (RBC) [Entitic vol] 81.0 fL Invalid Interpretation Code 80.0 - 99.0 fL AH Remisol SS Monocytes (Bld) [#/Vol] 0.50 103/mcL Invalid Interpretation Code 0.09 - 1.40 10^3/mcL AH Remisol SS Monocytes/100 WBC (Bld) 9.1 % Invalid Interpretation Code 2.0 - 13.0 % AH Remisol SS Neutrophils (Bld) [#/Vol] 3.70 103/mcL Invalid Interpretation Code 2.25 - 8.10 10^3/mcL AH Remisol SS Neutrophils/100 WBC (Bld) 71.3 % Invalid Interpretation Code 50.0 - 75.0 % AH Remisol SS Platelet mean volume (Bld) [Entitic vol] 7.8 fL Invalid Interpretation Code 6.6 - 10.5 fL AH Remisol SS Platelets (Bld) [#/Vol] 220 103/mcL Invalid Interpretation Code 150 - 450 10^3/mcL AH Remisol SS Potassium [Moles/Vol] 3.9 mmol/L Invalid Interpretation Code 3.5 - 5.0 mEq/L AH ADM SS RBC (Bld) [#/Vol] 4.74 106/mcL Invalid Interpretation Code 4.10 - 5.30 10^6/mcL AH Remisol SS Sodium [Moles/Vol] 139 mmol/L Invalid Interpretation Code 136 - 145 mEq/L AH ADM SS Urea nitrogen [Mass/Vol] 19.0 mg/dL Invalid Interpretation Code 8.0 - 22.0 mg/dL AH ADM SS Urea nitrogen/Creatinine [Mass ratio] 21.8 ratio Invalid Interpretation Code 10.0 - 22.0 ratio AH ADM SS WBC (Bld) [#/Vol] 5.20 103/mcL Invalid Interpretation Code 4.50 - 10.80 10^3/mcL AH Remisol SS Color of specimen determinat ionon 09-24-2021 Color (Unsp spec) Not Reportable [facility] Work Phone: Measurement of weight of sto neon 09-24-2021 Weight (Stone) Not Reportable [facility] Work Phone: Origin of Stoneon 09-24-2021 Origin Nom (Stone) See comment [facility] Work Phone: Comment on above: TEST RESULT UNITS RE F INTERVALStone AnalysisSource Not providedColor BrownSize 01 3x2 mmMultiple pieces received. Dimensions of the largest piecereported.Weight 8 mgCompositionPercentage (Represents the % composition)Calcium Oxalate Dihydrate 100 %CommentSpecimen contains a large portion clotted/dried blood.Photo Photograph will follow under a separate coverComment: Physician questions regarding [facility] Analysis [facility] at: [phone].Please note: Calculi report will follow via computer, mail or courierdelivery.Disclaimer:This test was developed and its performance characteristicsdetermined by [email or web address]. It has not been cleared or approvedby the Food and Drug Administration. TESTING PERFORMED AT [facility]. ORIGINAL REPORT ON FILE IN LAB CONTAINS ADDITIONAL TEST SITE INFORMATION. ____ Size of stoneon 09-24-2021 Size (Stone) [Entitic vol] Not Reportable [facility] Work Phone: No Panel Informationon 09-18 Culture Urine <10,000 cfu/ml. No Significant growth. Sensitivity not indicated. [facility] Work Phone: Vital Signs Date Time Vital Sign Value Performing Clinician Facility 01-28-2025 15:34-0400 Body temperature 98.24 [degF] DR MARYANN DANIEL MD [facility] 01-28-2025 15:34-0400 Diastolic Blood Pressure Non-Invasive 102 mm[Hg] DR MARYANN DANIEL MD [facility] 01-28-2025 15:34-0400 Heart rate 63 /min DR MARYANN DANIEL MD [facility] 01-28-2025 15:34-0400 Respiratory rate 16 /min DR MARYANN DANIEL MD [facility] 01-28-2025 15:34-0400 Systolic Blood Pressure Non-Invasive 180 mm[Hg] DR MARYANN DANIEL MD [facility] 02-29-2024 17:35-0400 Body temperature 96.8 [degF] DIEGO BEDOYA MD [facility] 02-29-2024 17:35-0400 Diastolic Blood Pressure Non-Invasive 89 mm[Hg] DIEGO BEDOYA MD [facility] 02-29-2024 17:35-0400 Heart rate 62 /min DIEGO BEDOYA MD [facility] 02-29-2024 17:35-0400 Respiratory rate 16 /min DIEGO BEDOYA MD [facility] 02-29-2024 17:35-0400 Systolic Blood Pressure Non-Invasive 158 mm[Hg] DIEGO BEDOYA MD [facility] 02-29-2024 17:11-0400 Body temperature 96.98 [degF] DIEGO BEDOYA MD [facility] 02-29-2024 17:11-0400 Diastolic Blood Pressure Non-Invasive 99 mm[Hg] DIEGO BEDOYA MD [facility] 02-29-2024 17:11-0400 Heart rate 63 /min DIEGO BEDOYA MD [facility] 02-29-2024 17:11-0400 Respiratory rate 16 /min DIEGO BEDOYA MD [facility] 02-29-2024 17:11-0400 Systolic Blood Pressure Non-Invasive 165 mm[Hg] DIEGO BEDOYA MD [facility] 02-29-2024 16:54-0400 Diastolic Blood Pressure Non-Invasive 82 mm[Hg] DIEGO BEDOYA MD [facility] 02-29-2024 16:54-0400 Respiratory rate 16 /min DIEGO BEDOYA MD [facility] 02-29-2024 16:54-0400 Systolic Blood Pressure Non-Invasive 165 mm[Hg] DIEGO BEDOYA MD [facility] 02-29-2024 16:37-0400 Heart rate 64 /min DIEGO BEDOYA MD [facility] 02-29-2024 16:37-0400 Mean blood pressure 118 mm[Hg] DIEGO BEDOYA MD [facility] 02-29-2024 16:22-0400 Heart rate 70 /min DIEGO BEDOYA MD [facility] 02-29-2024 16:22-0400 Mean blood pressure 114 mm[Hg] DIEGO BEDOYA MD [facility] 02-29-2024 16:07-0400 Body temperature 96.98 [degF] DIEGO BEDOYA MD [facility] 02-29-2024 16:07-0400 Mean blood pressure 99 mm[Hg] DIEGO BEDOYA MD [facility] 02-29-2024 16:00-0400 Respiratory Rate - Anes 12 br/min DIEGO BEDOYA MD [facility] 02-29-2024 15:55-0400 Respiratory Rate - Anes 13 br/min DIEGO BEDOYA MD [facility] 02-29-2024 15:50-0400 Respiratory Rate - Anes 14 br/min DIEGO BEDOYA MD [facility] 02-29-2024 14:00-0400 Body height 162.6 cm DIEGO BEDOYA MD [facility] 02-29-2024 14:00-0400 Body weight 48.7 kg DIEGO BEDOYA MD [facility] 02-29-2024 14:00-0400 Heart rate 65 /min DIEGO BEDOYA MD [facility] 02-16-2024 15:19-0400 Blood Pressure Location DIEGO BEDOYA MD [facility] 02-16-2024 15:19-0400 Blood Pressure Method DIEGO BEDOYA MD [facility] 02-16-2024 15:19-0400 Body height 168 cm DIEGO BEDOYA MD [facility] 02-16-2024 15:19-0400 Body temperature 98.24 [degF] DIEGO BEDOYA MD [facility] 02-16-2024 15:19-0400 Body weight 51.3 kg DIEGO BEDOYA MD [facility] 02-16-2024 15:19-0400 Body weight 18.18 kg/m2 DIEGO BEDOYA MD [facility] 02-16-2024 15:19-0400 Diastolic Blood Pressure Non-Invasive 96 mm[Hg] DIEGO BEDOYA MD [facility] 02-16-2024 15:19-0400 Heart rate 59 /min DIEGO BEDOYA MD [facility] 02-16-2024 15:19-0400 Systolic Blood Pressure Non-Invasive 159 mm[Hg] DIEGO BEDOYA MD [facility] 11-02-2023 07:57-0500 Body height 163.[address] Christiana Batista Work Phone: [facility] 11-02-2023 07:57-0500 Body mass index (BMI) [Ratio] 18.1 kg/m2 Dr. Chrsitiana Batista Work Phone: [facility] 11-02-2023 07:57-0500 Body temperature 96.9 [degF] Dr. Christiana Batista Work Phone: [facility] 11-02-2023 07:57-0500 Body weight 48.[address] Christiana Batista Work Phone: [facility] 11-02-2023 07:57-0500 Diastolic blood pressure 90 mm[Hg] Dr. Christiana Batista Work Phone: [facility] 11-02-2023 07:57-0500 Heart rate 51 /min Dr. Christiana Batista Work Phone: [facility] 11-02-2023 07:57-0500 Respiratory rate 18 /min Dr. Christiana Batista Work Phone: [facility] 11-02-2023 07:57-0500 SaO2% (BldA) [Mass fraction] 99 % Dr. Christiana Batista Work Phone: [facility] 11-02-2023 07:57-0500 Systolic blood pressure 151 mm[Hg] Dr. Christiana Batista Work Phone: [facility] 06-19-2022 12:40-0400 diastolic 90 mm[Hg] LAUREN REYNOLDS MD [address] [place] [address] 06-19-2022 12:40-0400 Heart rate 48 /min LAUREN REYNOLDS MD [address] [place] [address] 06-19-2022 12:40-0400 Respiratory rate 16 /min LAUREN REYNOLDS MD [address] [place] [address] 06-19-2022 12:40-0400 systolic 170 mm[Hg] LAUREN REYNOLDS MD [address] [place] [address] 06-19-2022 09:50-0400 Body height 162.6 cm LAUREN REYNOLDS MD [address] [place] [address] 06-19-2022 09:50-0400 Body temperature 97.88 [degF] LAUREN REYNOLDS MD [address] [place] [address] 06-19-2022 09:50-0400 Body weight 49.8 kg LAUREN REYNOLDS MD [address] [place] [address] 06-19-2022 09:50-0400 diastolic 92 mm[Hg] LAUREN REYNOLDS MD [address] [place] [address] 06-19-2022 09:50-0400 Heart rate 49 /min LAUREN REYNOLDS MD [address] [place] [address] 06-19-2022 09:50-0400 Respiratory rate 16 /min LAUREN REYNOLDS MD [address] [place] [address] 06-19-2022 09:50-0400 systolic 157 mm[Hg] LAUREN REYNOLDS MD [address] [place] [address] 04-23-2022 05:48-0400 Body height 163.[address] Christiana Batista Work Phone: [facility] Work Phone: 04-23-2022 05:48-0400 Body mass index (BMI) [Ratio] 19.1 kg/m2 Dr. Christiana Batista Work Phone: [facility] Work Phone: 04-23-2022 05:48-0400 Body temperature 98.1 [degF] Dr. Christiana Batista Work Phone: [facility] Work Phone: 04-23-2022 05:48-0400 Body weight 51.[address] Christiana Batista Work Phone: [facility] Work Phone: 04-23-2022 05:48-0400 Diastolic blood pressure 97 mm[Hg] Dr. Christiana Batista Work Phone: [facility] Work Phone: 04-23-2022 05:48-0400 Heart rate 64 /min Dr. Christiana Batista Work Phone: [facility] Work Phone: 04-23-2022 05:48-0400 Respiratory rate 16 /min Dr. Christiana Batista Work Phone: [facility] Work Phone: 04-23-2022 05:48-0400 SaO2% (BldA) [Mass fraction] 98 % Dr. Christaina Batista Work Phone: [facility] Work Phone: 04-23-2022 05:48-0400 Systolic blood pressure 143 mm[Hg] Dr. Christiana Batista Work Phone: [facility] Work Phone: 01-14-2022 14:33-0400 Body height 163.[address] Christiana Batista Work Phone: [facility] Work Phone: 01-14-2022 14:33-0400 Body mass index (BMI) [Ratio] 19.1 kg/m2 Dr. Christiana Batista Work Phone: [facility] Work Phone: 01-14-2022 14:33-0400 Body temperature 98.2 [degF] Dr. Christiana Batista Work Phone: [facility] Work Phone: 01-14-2022 14:33-0400 Body weight 51.[address] Christiana Batista Work Phone: [facility] Work Phone: 01-14-2022 14:33-0400 Diastolic blood pressure 89 mm[Hg] Dr. Christiana Batista Work Phone: [facility] Work Phone: 01-14-2022 14:33-0400 Heart rate 81 /min Dr. Christiana Batista Work Phone: [facility] Work Phone: 01-14-2022 14:33-0400 Respiratory rate 16 /min Dr. Christiana Batista Work Phone: [facility] Work Phone: 01-14-2022 14:33-0400 SaO2% (BldA) [Mass fraction] 100 % Dr. Christiana Batista Work Phone: [facility] Work Phone: 01-14-2022 14:33-0400 Systolic blood pressure 135 mm[Hg] Dr. Christiana Batista Work Phone: [facility] Work Phone: 11-07-2021 15:15-0500 Body temperature 96.44 [degF] DIEGO BEDOYA MD [facility] 11-07-2021 15:15-0500 Diastolic Blood Pressure NBP 70 1 DIEGO BEDOYA MD [facility] 11-07-2021 15:15-0500 Heart rate 58 /min DIEGO BEDOYA MD [facility] 11-07-2021 15:15-0500 Reason For Taking VItal Signs DIEGO BEDOYA MD [facility] 11-07-2021 15:15-0500 Respiratory rate 14 /min DIEGO BEDOYA MD [facility] 11-07-2021 15:15-0500 Systolic Blood Pressure NBP 125 1 DIEGO BEDOYA MD [facility] 11-07-2021 15:00-0500 Diastolic Blood Pressure NBP 81 1 DIEGO BEDOYA MD [facility] 11-07-2021 15:00-0500 Mean blood pressure 89 mm[Hg] DIEGO BEDOYA MD [facility] 11-07-2021 15:00-0500 Systolic Blood Pressure NBP 118 1 DIEGO BEDOYA MD [facility] 11-07-2021 14:43-0500 Body temperature 97.34 [degF] DIEGO BEDOYA MD [facility] 11-07-2021 14:43-0500 Diastolic Blood Pressure NBP 51 1 DIEGO BEDOYA MD [facility] 11-07-2021 14:43-0500 Heart rate 54 /min DIEGO BEDOYA MD [facility] 11-07-2021 14:43-0500 Mean blood pressure 69 mm[Hg] DIEGO BEDOYA MD [facility] 11-07-2021 14:43-0500 Respiratory rate 16 /min DIEGO BEDOYA MD [facility] 11-07-2021 14:43-0500 Systolic Blood Pressure NBP 123 1 DIEGO BEDOYA MD [facility] 11-07-2021 14:31-0500 Heart rate 57 /min DIEGO BEDOYA MD [facility] 11-07-2021 14:31-0500 Mean blood pressure 85 mm[Hg] DIEGO BEDOYA MD [facility] 11-07-2021 13:43-0500 Body temperature 97.52 [degF] DIEGO BEDOYA MD [facility] 11-07-2021 13:30-0500 Body temperature 96.93 [degF] DIEGO BEDOYA MD [facility] 11-07-2021 13:25-0500 Body temperature 96.6 [degF] DIEGO BEDOYA MD [facility] 11-07-2021 13:20-0500 Body temperature 97.05 [degF] DIEGO BEDOYA MD [facility] 11-07-2021 10:35-0500 Body height 163.8 cm DIEGO BEDOYA MD [facility] 11-07-2021 10:35-0500 Body weight 50.8 kg DIEGO BEDOYA MD [facility] 11-07-2021 10:35-0500 Diastolic blood pressure 85 mm[Hg] DIEGO BEDOYA MD [facility] 11-07-2021 10:35-0500 Heart rate 69 /min DIEGO BEDOYA MD [facility] 11-07-2021 10:35-0500 Mean blood pressure 97 mm[Hg] DIEGO BEDOYA MD [facility] 11-07-2021 10:35-0500 Systolic blood pressure 122 mm[Hg] DIEGO BEDOYA MD [facility] 10-31-2021 13:31-0500 Body height 164 cm DIEGO BEDOYA MD [facility] 10-31-2021 13:31-0500 Body temperature 96.8 [degF] DIEGO BEDOYA MD [facility] 10-31-2021 13:31-0500 Body weight 51.9 kg DIEGO BEDOYA MD [facility] 10-31-2021 13:31-0500 Body weight 19.3 kg/m2 DIEGO BEDOYA MD [facility] 10-31-2021 13:31-0500 diastolic 79 mm[Hg] DIEGO BEDOYA MD [facility] 10-31-2021 13:31-0500 Heart rate 72 /min DIEGO BEDOYA MD [facility] 10-31-2021 13:31-0500 systolic 128 mm[Hg] DIEGO BEDOYA MD [facility] 10-06-2021 11:39-0500 Body height 162.[address] Christiana Batista Work Phone: [facility] Work Phone: 10-06-2021 11:39-0500 Body mass index (BMI) [Ratio] 19.9 kg/m2 Dr. Christiana Batista Work Phone: [facility] Work Phone: 10-06-2021 11:39-0500 Body temperature 97.2 [degF] Dr. Christiana Batista Work Phone: [facility] Work Phone: 10-06-2021 11:39-0500 Body weight 52.[address] Christiana Batista Work Phone: [facility] Work Phone: 10-06-2021 11:39-0500 Diastolic blood pressure 89 mm[Hg] Dr. Christiana Batista Work Phone: [facility] Work Phone: 10-06-2021 11:39-0500 Heart rate 64 /min Dr. Christiana Batista Work Phone: [facility] Work Phone: 10-06-2021 11:39-0500 Respiratory rate 16 /min Dr. Christiana Batista Work Phone: [facility] Work Phone: 10-06-2021 11:39-0500 SaO2% (BldA) [Mass fraction] 96 % Dr. Christiana Batista Work Phone: [facility] Work Phone: 10-06-2021 11:39-0500 Systolic blood pressure 189 mm[Hg] Dr. Christiana Batista Work Phone: [facility] Work Phone: 09-24-2021 17:59-0500 Body temperature 97.5 [degF] Dr. Christiana Batista Work Phone: [facility] Work Phone: 09-24-2021 17:59-0500 Diastolic blood pressure 79 mm[Hg] Dr. Christiana Batista Work Phone: [facility] Work Phone: 09-24-2021 17:59-0500 Heart rate 66 /min Dr. Christiana Batista Work Phone: [facility] Work Phone: 09-24-2021 17:59-0500 Respiratory rate 16 /min Dr. Christiana Batista Work Phone: [facility] Work Phone: 09-24-2021 17:59-0500 SaO2% (BldA) [Mass fraction] 100 % Dr. Christiana Batista Work Phone: [facility] Work Phone: 09-24-2021 17:59-0500 Systolic blood pressure 133 mm[Hg] Dr. Christiana Batista Work Phone: [facility] Work Phone: 09-24-2021 14:02-0500 Body mass index (BMI) [Ratio] 19.3 kg/m2 Dr. Christiana Batista Work Phone: [facility] Work Phone: 09-24-2021 14:02-0500 Body weight [address] Christiana Batista Work Phone: [facility] Work Phone: Encounters Encounter Date Encounter Type Care Provider Facility Start: 04-18-2025 End: 04-18-[address] CHRISTIANA BATISTA Facility[place] [place] Start: 04-18-2025 End: 04-18-2025 Patient encounter procedure CELY CHAVEZ MD [facility] Start: 04-17-[address] CHRISTIANA BATISTA DO Fac ility:[facility] Start: 04-13-2025 End: 04-13-2025 Emergency department patient visit JOSH KANG MD [facility] Start: 02-08-2025 End: 02-08-[address] CHRISTIANA BATISTA DO Facility[facility] Start: 02-08-2025 End: 02-08-[address] CHRISTIANA BATISTA DO [facility] Start: 01-28-2025 End: 01-28-2025 Emergency department patient visit DR MARYANN DANIEL MD [facility] Start: 12-06-2024 End: 12-06-2024 ambulatory DIEGO BEDOYA MD Facility:A Start: 11-29-2024 End: 12-03-2024 ambulatory DIEGO BEDOYA MD Facility[facility] Start: 09-06-2024 End: 09-06-[address] CHRISTIANA BATISTA DO Facility:A Start: 08-31-2024 End: 08-31-2024 ambulatory DIEGO BEDOYA MD Facility[facility] Start: 08-31-2024 End: 08-31-2024 Patient encounter procedure DIEGO BEDOYA MD [facility] Start: 08-11-2024 End: 08-11-[address] CHRISTIANA BATISTA DO Facility[facility] Start: 08-11-2024 End: 08-11-[address] CHRISTIANA BATISTA DO [facility] Start: 06-07-2024 End: 06-07-[address] CHRISTIANA BATISTA DO Facility:A Start: 06-07-2024 End: 06-07-2024 Patient encounter procedure DIEGO BEDOYA MD [facility] Start: 05-30-2024 End: 06-03-2024 ambulatory CHRISTIANA BATISTA Facility[facility] [place] Start: 05-30-2024 End: 06-03-2024 Outreach Lab DIEGO BEDOYA MD [facility] Start: 03-27-2024 End: 03-27-2024 ambulatory CHRISTIANA BATISTA Facility[facility] [place] Start: 03-27-2024 End: 03-27-[address] CHRISTIANA BATISTA DO [facility] Start: 03-10-2024 End: 03-10-2024 ambulatory CHRISTIANA BATISTA Facility:A Start: 03-10-2024 End: 03-10-2024 Patient encounter procedure DIEGO BEDOYA MD [facility] Start: 03-03-2024 End: 03-03-2024 ambulatory Ami Simmons NP Facility:[facility] Start: 02-29-2024 End: 02-29-2024 ambulatory CHRISTIANA BATISTA Facility:A Start: 02-29-2024 End: 02-29-2024 SAME DAY STAY DIEGO BEDOYA MD [facility] Start: 02-16-2024 End: 02-20-2024 ambulatory CHRISTIANA BATISTA Facility:A Start: 02-16-2024 End: 02-16-2024 Admission to establishment DIEGO BEDOYA MD [facility] Start: 02-16-2024 End: 02-16-2024 ambulatory CHRISTIANA BATISTA Facility:A Start: 02-16-2024 End: 02-16-2024 ambulatory CHRISTIANA BATISTA Facility:A Start: 02-16-2024 End: 02-16-2024 Patient 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 procedure 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 [facility] Start: 02-04-2024 End: 02-04-2024 ambulatory CHRISTIANA BATISTA Facility[facility] Start: 02-04-2024 End: 02-04-2024 Patient encounter procedure DIEGO BEDOYA MD [facility] Start: 01-29-2024 End: 01-29-2024 ambulatory CHRISTIANA BATISTA Facility[facility] Start: 01-29-2024 End: 01-29-[address] CHRISTIANA BATISTA DO [facility] Start: 01-19-2024 End: 01-19-2024 ambulatory CHRISTIANA BATISTA Facility:A Start: 01-19-2024 End: 01-19-2024 Patient encounter procedure DIEGO BEDOYA MD [facility] Start: 01-11-2024 End: 01-15-2024 ambulatory CHRISTIANA BATISTA Facility[facility] Start: 01-11-2024 End: 01-15-2024 Outreach Lab DIEGO BEDOYA MD [facility] Start: 01-07-2024 End: 01-07-2024 ambulatory CHRISTIANA BATISTA Facility[facility] Start: 11-30-2023 End: 11-30-[address] Christiana Batista Work Phone: [facility] Work Phone: Start: 11-30-2023 End: 11-30-[address] Christiana Batista Work Phone: [facility] Work Phone: Start: 11-30-2023 End: 11-30-2023 ambulatory [facility] Facility:[facility] Start: 11-12-2023 End: 11-12-[address] Christiana Batista Work Phone: [facility] Work Phone: Start: 11-12-2023 End: 11-12-[address] Christiana Batista Work Phone: [facility]iology, [place] Work Phone: Start: 11-12-2023 End: 11-12-2023 ambulatory [facility] Facility:[facility] Start: 11-02-2023 End: 11-02-[address] Christiana Batista Work Phone: [facility]-P[facility] Medicine [facility] Work Phone: Start: 11-02-2023 End: 11-02-2023 ambulatory Ami Simmons NP Facility:[facility] Start: 10-05-2023 End: 10-05-2023 ambulatory CHRISTIANA BATISTA Facility[facility] Start: 10-05-2023 End: 10-05-2023 Patient encounter procedure LINDEN JONES MD [facility] Start: 08-07-2023 End: 08-07-2023 ambulatory CHRISTIANA BATISTA Facility[facility] Start: 08-07-2023 End: 08-07-[address] CHRISTIANA BATISTA DO [facility] Start: 06-30-2023 End: 06-30-2023 ambulatory CHRISTIANA BATISTA Facility:A Start: 06-30-2023 End: 06-30-2023 Patient encounter procedure DIEGO BEDOYA MD [facility] Start: 06-21-2023 End: 06-21-2023 ambulatory DIEGO BEDOYA MD Facility[facility] Start: 06-21-2023 End: 06-21-2023 Patient encounter procedure DIEGO BEDOYA MD [facility] Start: 06-20-2023 End: 06-20-2023 ambulatory DIEGO BEDOYA MD Facility[facility] Start: 06-11-2023 End: 06-11-2023 ambulatory CHRISTIANA BATISTA Facility[facility] Start: 06-11-2023 End: 06-11-2023 Patient encounter procedure DIEGO BEDOYA MD [facility] Start: 05-21-2023 End: 05-21-2023 ambulatory [facility] Work Phone: Start: 05-21-2023 End: 05-21-2023 Patient encounter procedure [facility] Work Phone: Start: 05-21-2023 End: 05-21-2023 ambulatory [facility] Facility:[facility] Start: 03-02-2023 End: 03-02-2023 Patient encounter procedure [facility]-Cat Scan, [facility] Work Phone: Start: 01-23-2023 End: 01-23-[address] CHRISTIANA BATISTA DO [facility] Start: 12-09-2022 End: 12-09-2022 Patient encounter procedure DIEGO BEDOYA MD [facility] Start: 11-30-2022 End: 12-04-2022 Outreach Lab DIEGO BEDOYA MD [facility] Start: 09-02-2022 End: 09-02-2022 Patient encounter procedure DIEGO BEDOYA MD [facility] Start: 08-26-2022 End: 08-30-2022 Outreach Lab DIEGO BEDOYA MD [facility] Start: 06-19-2022 End: 06-19-2022 SAME DAY STAY LAUREN REYNOLDS MD [facility] Start: 06-03-2022 End: 06-03-2022 Patient encounter procedure DIEGO BEDOYA MD [facility] Start: 05-21-2022 End: 05-21-[address] Christiana Batista Work Phone: [facility] Work Phone: Start: 05-21-2022 End: 05-21-[address] Christiana Batista Work Phone: [facility] Start: 04-23-2022 End: 04-23-[address] Christiana Batista Work Phone: [facility] Start: 04-17-2022 End: 04-17-[address] Christiana Batista Work Phone: [facility] Start: 01-17-2022 End: 01-17-[address] CHRISTIANA BATISTA DO [facility] Start: 01-14-2022 End: 01-14-[address] Christiana Batista Work Phone: [facility] Start: 01-08-2022 End: 01-08-[address] Christiana Batista Work Phone: [facility] Start: 11-25-2021 End: 11-25-2021 Patient encounter procedure DIEGO BEDOYA MD [facility] Start: 11-07-2021 End: 11-07-2021 SAME DAY STAY DIEGO BEODYA MD [facility] Start: 10-31-2021 End: 10-31-2021 Admission to establishment DIEGO BEDOYA MD [facility] Start: 10-16-2021 End: 10-16-2021 Patient encounter procedure DIEGO BEDOYA MD [facility] Start: 10-14-2021 Non-patient / Non-visit Dr. Juan Carlos Batista Work Phone: [facility] Start: 10-14-2021 End: 10-14-[address] Christiana Batista Work Phone: [facility]-Pulmonary Services/Neurology Start: 10-06-2021 End: 10-06-[address] Christiana Batista Work Phone: [facility]-Pulmonary Medicine [facility] Start: 09-26-2021 End: 09-26-[address] CHRISTIANA BATISTA DO [facility] Start: 09-24-2021 End: 09-24-2021 Admission to same day surgery center Dr. Christiana Batista Work Phone: [facility] Start: 09-19-2021 End: 09-19-[address] CHRISTIANA BATISTA DO [facility] Start: 09-18-2021 End: 09-22-[address] CHRISTIANA BATISTA DO [facility] Procedures Date Procedure Procedure Detail Performing Clinician Start: 12-06-[address] MARYANN DANIEL MD Start: 06-07-2024 Cystoscopy DIEGO BOWEN MD Start: 11-30-[address] Jose Batista Work Phone: Start: 11-12-2023 Diagnostic radiograp hy of abdomen Dr. Christiana Batista Work Phone: Start: 06-30-2023 Transurethral cystoscopy DIEGO BEDOYA MD Start: 05-21-2023 Diagnostic radiograp hy of abdomen Start: 03-02-2023 CT of chest Start: 09-27-2022 Cataract extraction and insertion of intraocular lens DIEGO BEDOYA MD Comment on above: BILATERAL Start: 05-28-2022 Implantation of inse rtable loop recorder DIEGO BEDOYA MD Start: 05-21-2022 CT of abdomen and pe lvis without contrast Dr. Christiana Batista Work Phone: Start: 04-17-2022 CT of chest without contrast Dr. Christiana Batista Work Phone: Start: 01-08-2022 CT of chest without contrast Dr. Christiana Batista Work Phone: Start: 11-07-2021 Cystoscopy and transurethral resection of bladder tumor DIEGO BEDOYA MD Start: 10-14-2021 Screening mammography Elly Batista Work Phone: Start: 09-24-2021 O.R. Fluoro for C-Arm Elly Batista Work Phone: Start: 08-08-[address] CHRISTIANA SEPULVEDA DO Comment on above: [facility]: IMPRESSION : Patient's Holter monitor is significant for PVCs, some of them were in bigeminy beats, some of them were in trigeminy and occasional runs of paroxysmal SVT long RP type. Longest SVT was 9 beats long. Clinical correlation suggested Start: 03-27-2019 Catheter ablation of arrhythmogenic focus DR CHRISTIANA BATISTA DO Comment on above: Conclusions: 1) Successful 4 Pulmonary Vein isolation with antral ablations, with confirmation of block in and out of the veins. 2) no evidence of inducible arrhythmia on up to 6 mcg/min of Isuprel. 3:Normal Conduction system 4) No evidence of atrial tachycardia, AVNRT or a flutter despite Isuprel at 6 mcg. Start: 11-14-2018 Recorder, device (ph ysical object) DR CHRISTIANA BATISTA DO Comment on above: loop recorder placem ent in October 2018 [employer] Reveal [place] q [id number]. Start: 09-27-2018 Implantation of inse rtable loop recorder DIEGO BEDOYA MD Comment on above: Implantation of Loop Recorder 11/14/2018 [employer] LNQ11 Reveal LINQ Serial [id number] Start: 12-13-[address] VERONICA BATISTA DO Comment on above: Summary: 1. Left ventricle: The cavity size is normal. Wall thickness is normal. Mid cavitary false tendon noted. Systolic function is normal. The estimated ejection fraction is 60-65%. Wall motion is normal; there are no regional wall motion abnormalities. 2. Right ventricle: The RV systolic pressure by Doppler is 24 mm Hg. 3. Right atrium: The estimated right atrial pressure is 3 mm Hg. 4. Pericardium, extracardiac: A small anterior pericardial effusion cannot be excluded Ankle region structu re (body structure) DR CHRISTIANA BATISTA DO Comment on above: R ankle surgery Appendectomy DR CHRISTIANA Pickard DO Breast cancer screen ing declined Breast screening declined( Confirmed ) DR CHRISTIANA BATISTA DO Breast cancer screen ing declined Breast screening declined( Confirmed ) 1 DIEGO BEDOYA MD Comment on above: her criminal lawyer in sisted she have a mammogram so one done in sep 2021 and pt states it was normal Colonoscopy DR CHRISTIANA Pickard DO Excision of cyst DIEGO SANCHEZ MD Comment on above: RIGHT ANKLE Excision of the trapezium KARINA BEDOYA MD Comment on above: BILATERAL Extraction of wisdom tooth J SLICK BEDOYA MD Hernia of abdominal cavity (disorder) DR CHRISTIANA BATISTA DO Hernia of abdominal cavity (disorder) DIEGO BEDOYA MD Comment on above: right groin Implantation of inse rtable loop recorder DR CHRISTIANA BATISTA DO Comment on above: Implantation of Loop Recorder 11/14/2018 [employer] LNQ11 Reveal LINQ Serial [id number] Lithotripsy DIEGO BEDOYA MD Repair of inguinal hernia KARINA BEDOYA MD Comment on above: RIGHT Thumb structure (bod y structure) DR CHRISTIANA BATISTA DO Comment on above: b/l thumb surgery Tonsillectomy and adenoidectomy DR CHRISTIANA BATISTA DO Tubal (disorder) D R CHRISTIANA BATISTA DO Comment on above: Left tubal ligation w/ salpingectomy Plan of Treatment Date Care Activity Detail Author Start: 09-24-2021 Anes trurl fragmntj manj&/rmvl ureteral calculus ANESTH STONE REMOVAL [facility] Work Phone: Start: 09-24-2021 Cysto/uretero w/lithotripsy &indwell stent insrt CYSTO/URETERO W/LITHOTRIPSY [facility] Work Phone: [facility] Work Phone: [facility] Patient referral [facility] Work Phone: [facility] Immunizations Immunization Date Immunization Notes Care Provider Fa juani 01-28-2025 tetanus toxoid, redu yumiko diphtheria toxoid, and acellular pertussis vaccine, adsorbed DR MARYANN DANIEL MD [facility] 08-29-2021 COVID-19, mRNA, LNP- S, PF, 100 mcg/ 0.5 mL dose; Translations: [Moderna COVID-19 Vaccine] DR CHRISTIANA BATISTA DO [facility] 02-04-2021 SARS-CoV-2 (COVID-19 ) mRNA-[address] CHRISTIANA BATISTA DO [facility] Comment on above: Result Comment: 2020: --SELECT TARGET POPULATION/OCCUPATION-- 01-07-2021 SARS-CoV-2 (COVID-19 ) mRNA-[address] CHRISTIANA BATISTA DO [facility] Comment on above: Result Comment: 2020: [id number] 07-12-2020 pneumococcal polysaccharide vaccine, 23 valent; Translations: [Pneumovax 23] DR CHRISTIANA BATISTA DO [facility] 06-23-2019 pneumococcal conjuga te vaccine, [address] CHRISTIANA BATISTA DO [facility] 06-23-2019 zoster vaccine, live DR MARCY BATISTA DO [facility] 04-15-[address] CHRISTIANA BATISTA DO [facility] 08-02-2013 pneumococcal polysaccharide vaccine, [address] CHRISTIANA BATISTA DO [facility] 08-02-2013 tetanus toxoid, redu yumiko diphtheria toxoid, and acellular pertussis vaccine, adsorbed DR CHRISTIANA BATISTA DO [facility] 08-02-2013 zoster vaccine, live DR MARCY BATISTA DO [facility] Payers Date Payer Category Payer Private Health Insurance [id number] 2022 Medicare [id number] 2022 Self-pay [id number] 2022 Unknown [id number] 2018 Medicare [id number] 1953 Unknown [id number] 2.16.8 40.1.975778.3.579.2.62 1953 Unknown [id number] 2.16.8 40.1.296584.3.579.2.627 1953 Unknown [id number] 2.16.8 40.1.651513.3.579.2.62 1953 Unknown [id number] 2.16.8 40.1.232508.3.579.2. 1953 Unknown [id number] 2.16.8 40.1.265908.3.579.2. 1953 Unknown [id number] 2.16.8 40.1.275685.3.579.2. 1953 Unknown [id number] 2.16.8 40.1.555346.3.579.2. 1953 Unknown [id number] 2.16.8 40.1.858909.3.579.2. 1953 Unknown [id number] 2.16.8 40.1.388330.3.579.2. 1953 Unknown [id number] 2.16.8 40.1.193794.3.579.2. 1953 Unknown [id number] 2.16.8 40.1.741665.3.579.2. 1953 Unknown [id number] 2.16.8 40.1.949153.3.579.2 1953 Unknown [id number] 2.16.8 40.1.565646.3.579.2. 1953 Unknown [id number] 2.16.8 40.1.194185.3.579.2. 1953 Unknown [id number] 2.16.8 40.1.616825.3.579.2. 1953 Unknown [id number] 2.16.8 40.1.197855.3.579.2. 1953 Unknown [id number] 2.16.8 40.1.070998.3.579.2. 1953 Unknown [id number] 2.16.8 40.1.678880.3.579.2 1953 Unknown [id number] 2.16.8 40.1.805640.3.579.2.627 1953 Unknown [id number] 2.16.8 40.1.109133.3.579.2. 1953 Unknown [id number] 2.16.8 40.1.386141.3.579.2. 1953 Unknown [id number] 2.16. 840.1.005056.3.579.2. 1953 Unknown [id number] 2.16. 840.1.260767.3.579.2. 1953 Unknown [id number] 2.16. 840.1.736829.3.579.2. 1953 Unknown [id number] 2.16.8 40.1.909268.3.579.2. 1953 Unknown [id number] 2.16.8 40.1.231165.3.579.2. 1955 Unknown [id number] 2.16.8 40.1.971354.3.579.2. 1955 Unknown [id number] 2.16.8 40.1.909320.3.579.2. 1955 Unknown [id number] 2.16.8 40.1.886926.3.579[address] [facility] [id number] Unknown [id number] 2.16.8 40.1.194303.3.579.2.462 Unknown [id number] 2.16.8 40.1.473948.3.579.2.462 Unknown [id number] 2.16.8 40.1.976210.3.579.2.462 Unknown [id number] 2.16.8 40.1.480140.3.579.2.462 Unknown [id number] 2.16.8 40.1.108494.3.579.2.462 Social History Date Type Detail Facility Start: 11-14-2018 End: 01-28-2025 Ex-smoker (finding) [facility] Start: 1955 Sex Assigned At Female [facility] Start: 10-06-2021 End: 11-02-2023 Tobacco smoking status INIS Unknown if ever smoked [facility] Start: 08-22-2019 Sex Female (finding) [facility] Medical Equipment Procedure Code Equipment Code Equipment Origin al Text Equipment Identifier Dates Cystoscopy, with retrograde pyelogram, ureteroscopy, laser procedure, and stent inser STENT,URETERAL PIGTAIL [id number] FDA Start: 09-24-2021 Cystoscopy, with retrograde pyelogram, ureteroscopy, laser procedure, and stent inser STENT,URETERAL PIGTAIL [id number] FDA Start: 09-24-2021 Cystoscopy, with retrograde pyelogram, ureteroscopy, laser procedure, and stent inser STENT,URETERAL PIGTAIL [id number] FDA Start: 09-24-2021 Cystoscopy, with retrograde pyelogram, ureteroscopy, laser procedure, and stent inser STENT,URETERAL PIGTAIL [id number] FDA Start: 09-24-2021 Cystoscopy, with retrograde pyelogram, ureteroscopy, laser procedure, and stent inser STENT,URETERAL PIGTAIL [id number] FDA Start: 09-24-2021 Cystoscopy, with retrograde pyelogram, ureteroscopy, laser procedure, and stent inser STENT,URETERAL PIGTAIL [id number] FDA Start: 09-24-2021 Functional Status Date Assessment Result Facility 01-28-2025 Functional Status Standard Safet y ID band on, Call device within reach, Bed in low position, Wheels locked, Bedside Cart Locked, Visitor at bedside, Safety level maintained [facility] 02-29-2024 Functional Status ID band on, Safety level maintained [facility] 02-29-2024 Functional Status [facility] 02-29-2024 Functional Status Maintained [facility] 02-16-2024 Functional Status Sensory Deficits None [facility] 06-19-2022 Functional Status Ambulating in room [facility] 06-19-2022 Functional Status Maintained [facility] 09-24-2021 Functional status Ambulates [facility] Work Phone: Mental Status Date Assessment Result Facility 01-28-2025 Mental Status Orientation Oriented x 4 [facility] 02-29-2024 Mental Status Oriented x 4 [facility] 06-19-2022 Mental Status Orientation Oriented x 4 [facility] 06-19-2022 Mental Status [facility] Mental Status [facility] 09-24-2021 Cognitive function Voice/Name [facility] Work Phone: 09-24-2021 Cognitive function Patient Orien tation Person;Place;Time [facility] Work Phone: Clinical Notes 11-07-2021 to 04-13-2025 LaboratoryLaboratoryLaboratoryLaboratoryLaboratoryLaboratoryLaboratoryLaboratory LaboratoryLaboratoryLaboratoryRadiologyLaboratoryRadiologyLaboratoryLaboratoryLa boratoryLaboratoryLaboratoryLaboratory Note Date & Type Note Facility 04-13-2025 Hospital Discharge instructions Patient Education 04/13/2025 15:08:46 Vomiting (Adult) Vomiting (Adult) Vomiting is a common symptom that may be due to different causes. These include gastroenteritis ("stomach flu"), food poisoning and gastritis. There are other more serious causes of vomiting which may be hard to diagnose early in the illness. Therefore, it is important to watch for the warning signs listed below. The main danger from repeated vomiting is dehydration. This is due to excess loss of water and minerals from the body. When this occurs, your body fluids must be replaced. Home care If symptoms are severe, rest at home for the next 24 hours. Because your symptoms may be from an infection, wash your hands often and well. If soap and water are not available, use alcohol-based filter washer and presser to keep from spreading the infection to others. Wash your hands for at least 20 seconds. Humming the happy birthday song twice while you wash is an easy way to make sure you've washed for 20 seconds. Wash your hands after using the toilet, before and after preparing food, before eating food, after changing a diaper, cleaning a wound, caring for a sick person, and blowing your nose, coughing, or sneezing. You should also wash your hands after caring for someone who is sick, touching pet food, or treats, and touching an animal, or animal waste. You may use acetaminophen or NSAID medicines like ibuprofen or naproxen to control fever, unless another medicine was prescribed. If you have chronic liver or kidney disease or ever had a stomach ulcer or gastrointestinal bleeding, talk with your doctor before using these medicines. Aspirin should never be used in anyone under 18 years of age who is ill with a fever. It may cause severe liver damage. Don't use NSAID medicines if you are already taking one for another condition (like arthritis) or are on aspirin (such as for heart disease, or after a stroke) Don't use tobacco and or drink alcohol, which may worsen your symptoms. If medicines for vomiting were prescribed, take as directed. Once vomiting stops, then follow these guidelines: During the first 12 to 24 hours follow the diet below: Fruit juices. Apple, grape juice, clear fruit drinks, and electrolyte replacement drinks. Beverages. Soft drinks without caffeine; mineral water (plain or flavored), decaffeinated tea and coffee. Soups. Clear broth and bouillon Desserts. Plain gelatin, ice pops, and fruit juice bars. As you feel better, you may add 6 to 8 ounces of yogurt per day. During the next 24 hours you may add the following to the above: Hot cereal, plain toast, bread, rolls, crackers Plain noodles, rice, mashed potatoes, chicken noodle or rice soup Unsweetened canned fruit such as applesauce, bananas (avoid pineapple and citrus) Limit caffeine and chocolate. No spices or seasonings except salt. During the next 24 hours: Gradually resume a normal diet, as you feel better and your symptoms lessen. Follow-up care Follow up with your healthcare provider, or as advised. When to seek medical advice Call your healthcare provider right away if any of these occur: Constant right-sided lower belly pain or increasing general belly pain Continued vomiting (unable to keep liquids down) for 24 hours Vomiting blood or coffee grounds Swollen belly Frequent diarrhea (more than 5 times a day); blood (red or black color) or mucus in diarrhea Reduced urine output or extreme thirst Weakness, dizziness or fainting Unusually drowsy or confused Fever of 100.4 F (38 C) oral or higher, or as directed Yellow color of the eyes or skin 6814-9062 [employer]. [address] [place] [address]. All rights reserved. This information is not intended as a substitute for professional medical care. Always follow your healthcare professional's instructions. Follow Up Care 04/13/2025 13:42:25 With:CHRISTIANA BATISTA DO Address: [address] [place] [phone] When:2-4 days [facility] 04-13-2025 Note Discharge Instructions Thank you for allowing [facility] to assist you with your healthcare needs. The following is important discharge information regarding your hospital visit. Diagnosis from Today's Visit Vomiting What to Do Next Instructions from Your Care Team No qualifying data available. Post Acute Orders No qualifying data available. You Need to Schedule the Following Appointments Follow Up with CHRISTIANA BATISTA DO When:Within 2-4 days Where:[address] [place] [phone] Allergies NKA Medications Please ask your primary doctor or pharmacist before taking any other medication not listed, including over the counter drugs, herbal medications, vitamins and or supplements as they may interact with your home medications. What How Much When Instructions Last Dose New ondansetron (Zofran ODT use ondansetron oral tablet, disintegrating ) 4 Milligram by mouth Every 8 hours Duration: 5 Days Printed Prescription Unchanged cyclobenzaprine (cyclobenzaprine 5 mg oral tablet) 1 tab(s) by mouth Every day as needed for Muscle spasm Duration: 30 Days Unchanged fluticasone nasal (fluticasone proprionate NASAL 50 mcg/ spray) 2 spray(s) each nostril Once a day (in the morning) as needed for as needed for allergy symptoms Unchanged ibuprofen (Advil 200 mg oral tablet) 2 tab(s) by mouth Two (2) times a day Unchanged multivitamin (Multivitamin) 1 tab(s) by mouth Every day Unchanged polyethylene glycol 3350 (MiraLax oral powder for reconstitution) 17 gram(s) by mouth Once a day Please take this list to your next doctor s visit. Bring all medications you take, including over the counter medications, herbals and other supplements with you to your doctor s visit. Patients and families are reminded to discard old lists and to update any records with all medication providers or retail pharmacies. Education Materials Vomiting (Adult) Vomiting is a common symptom that may be due to different causes. These include gastroenteritis ("stomach flu"), food poisoning and gastritis. There are other more serious causes of vomiting which may be hard to diagnose early in the illness. Therefore, it is important to watch for the warning signs listed below. The main danger from repeated vomiting is dehydration. This is due to excess loss of water and minerals from the body. When this occurs, your body fluids must be replaced. Home care If symptoms are severe, rest at home for the next 24 hours. Because your symptoms may be from an infection, wash your hands often and well. If soap and water are not available, use alcohol-based filter washer and presser to keep from spreading the infection to others. Wash your hands for at least 20 seconds. Humming the happy birthday song twice while you wash is an easy way to make sure you've washed for 20 seconds. Wash your hands after using the toilet, before and after preparing food, before eating food, after changing a diaper, cleaning a wound, caring for a sick person, and blowing your nose, coughing, or sneezing. You should also wash your hands after caring for someone who is sick, touching pet food, or treats, and touching an animal, or animal waste. You may use acetaminophen or NSAID medicines like ibuprofen or naproxen to control fever, unless another medicine was prescribed. If you have chronic liver or kidney disease or ever had a stomach ulcer or gastrointestinal bleeding, talk with your doctor before using these medicines. Aspirin should never be used in anyone under 18 years of age who is ill with a fever. It may cause severe liver damage. Don't use NSAID medicines if you are already taking one for another condition (like arthritis) or are on aspirin (such as for heart disease, or after a stroke) Don't use tobacco and or drink alcohol, which may worsen your symptoms. If medicines for vomiting were prescribed, take as directed. Once vomiting stops, then follow these guidelines: During the first 12 to 24 hours follow the diet below: Fruit juices. Apple, grape juice, clear fruit drinks, and electrolyte replacement drinks. Beverages. Soft drinks without caffeine; mineral water (plain or flavored), decaffeinated tea and coffee. Soups. Clear broth and bouillon Desserts. Plain gelatin, ice pops, and fruit juice bars. As you feel better, you may add 6 to 8 ounces of yogurt per day. During the next 24 hours you may add the following to the above: Hot cereal, plain toast, bread, rolls, crackers Plain noodles, rice, mashed potatoes, chicken noodle or rice soup Unsweetened canned fruit such as applesauce, bananas (avoid pineapple and citrus) Limit caffeine and chocolate. No spices or seasonings except salt. During the next 24 hours: Gradually resume a normal diet, as you feel better and your symptoms lessen. Follow-up care Follow up with your healthcare provider, or as advised. When to seek medical advice Call your healthcare provider right away if any of these occur: Constant right-sided lower belly pain or increasing general belly pain Continued vomiting (unable to keep liquids down) for 24 hours Vomiting blood or coffee grounds Swollen belly Frequent diarrhea (more than 5 times a day); blood (red or black color) or mucus in diarrhea Reduced urine output or extreme thirst Weakness, dizziness or fainting Unusually drowsy or confused Fever of 100.4 F (38 C) oral or higher, or as directed Yellow color of the eyes or skin 5880-0619 [employer]. [address] [place] [address], [place] [address]. All rights reserved. This information is not intended as a substitute for professional medical care. Always follow your healthcare professional's instructions. Additional Information VACCINATE! IT SAVES LIVES! Members of the community who have not yet received the COVID-19 vaccine and would like to receive it can visit one of [facility] vaccine clinics. There are many vaccine clinic locations within the State. For locations and available times, please visit www.gettheshot.coronavirus.[place].gov /. It is important to note that some COVID mobile vaccine clinics are held outdoors and may be canceled in rainy or stormy conditions. To learn more about pediatric vaccinations (ages 5-11), we invite you to visit the [facility] webpage. https://www.[email or web address]s.org/page [email or web address]-Nxigd-Cicoqvxfpgl-Frequently -Asked-Questions.html To learn more about the COVID-19 vaccine, we invite you to visit the CDC website for a list of frequently asked questions. https://www.cdc.gov/coronavirus/201 9-ncov/vaccines/faq.html [facility] Patient Portal Access Instructions: Stay connected with your healthcare team and access your personal medical information anytime with the [employer] [facility] Patient Portal. If you would like a full copy of your medical records please contact the [facility] Medical Records Department Wednesday through Wednesday between 8a.m. and 4:30p.m. Please follow the directions below to access the portal: 1.Access the email account you provided upon registration to the hospital.2.Look for an invitation email from [facility].3.Open the email and access the invitation link: Accept Invitation to [facility]4.Fill in the required castellano to create your account. Sign into [email or web address] with your username and password that you [...] you will allow to register on the [facility] Patient Portal for access to your information. You can also access the [facility] Patient Portal on the [employer]. Simply click on "Health Records" under "Health Data" and then click on the [employer] logo. HOW TO SAFELY DISPOSE OF PRESCRIPTION [...] Call your local pharmacy or go to http://iCurrent.Life in Hi-Fi/0F4Yl5c to find one close to you.3.Make use of household items: Use cat litter or old coffee grounds to dispose medications if other options are not available. Mix your drugs with these household products, seal them in an airtight container and throw it into the garbage. Call [facility]: [phone] to be sure your drugs can be disposed of in this way. Some medicines may require a different approach.4.Never flush your medications down the toilet. IF YOU HAVE BEEN PRESCRIBED AN OPIOIDS FOR PAIN If you have been prescribed [...] have withdrawal symptoms when a medication is stopped ? this can develop within a few days. KNOW [...] children, family, friends and visitors). The last page(s) of this document has been signed and retained as a CHART COPY Signatures Patient Education Materials Vomiting (Adult) Medication Leaflets My discharge plan and instructions have been reviewed and explained to me and I,RENAE VIDAL understand my current condition and have read and understand these discharge instructions. I have received a written copy of the plan/instructions. If I have questions, I am aware that I should contact my doctor. Patient/Quick Sketch Artist Signature: ____ Date/Time: Relationship to Patient: __ Witness Name/Signature: Date/Time: [facility] 01-28-2025 Hospital Discharge instructions Patient Education 01/28/2025 16:28:28 Burn, Second-Degree Second-Degree Burn A burn occurs when skin is exposed to too much heat, sun, or harsh chemicals. A second-degree burn (partial-thickness burn) is deeper than a first-degree burn (superficial burn). It usually causes a blister to form. The blister may remain intact and gradually go away on its own. Or it may break open. The goal of treatment is to relieve pain and stop infection while the burn heals. Home care Use pain medicine as directed. If no pain medicine was prescribed, you may use qixg-ulg-kzzdrig medicine to control pain. If you have chronic liver or kidney disease, talk with your healthcare provider before using acetaminophen or ibuprofen. Also talk with your provider if you've had a stomach ulcer or GI bleeding. General care On the first day, you may put a cool compress on the wound to ease pain. A cool compress is a small towel soaked in cool water. If you were sent home with the blister intact, don't break the blister. The risk for infection is greater if the blister breaks. If a bandage was applied, change it once a day, unless told otherwise. If the bandage becomes wet or soiled, change it as soon as you can. Sometimes an infection may occur even with proper treatment. Check the burn daily for the signs of infection listed below. Eat more calories and protein until your wound is healed. Wear a hat, sunscreen, and long sleeves while in the sun to protect the skin. Don't pick or scratch at the wound. Use hhsr-org-ibfefaw medicines like diphenhydramine for itching. Avoid tight-fitting clothes. To change a bandage: Wash your hands. Take off the old bandage. If the bandage sticks, soak it off under warm running water. Once the bandage is off, gently wash the burn area with mild soap and warm water to remove any cream, ointment, ooze, or scab. You may do this in a sink, under a tub faucet, or in the shower. Rinse off the soap and gently pat dry with a clean towel. Check for signs of infection listed below. Put any prescribed antibiotic cream or ointment on the wound. Cover the burn with nonstick gauze. Then wrap it with the bandage material. Follow-up care Follow up with your healthcare provider, or as advised. When to seek medical advice Call your healthcare provider right away if you have any of these signs of infection: Fever of 100.4 F (38 C) or higher, or as directed by your healthcare provider Pain that gets worse Redness or swelling that gets worse Pus comes from the burn Red streaks in your skin coming from the burn Wound doesn't appear to be healing Nausea or vomiting [id number] [employer]. [address] [place] [address]. All rights reserved. This information is not intended as a substitute for professional medical care. Always follow your healthcare professional's instructions. 01/28/2025 16:28:18 Burn, Hot Water Hot Water Burn Hot water on the skin can cause a first- or second-degree burn. A first-degree burn causes only redness and heals in a few days. A second-degree burn is deeper. It causes a blister to form. The blister may break and leak clear fluid. It may become infected. Second-degree campbell take 1 to 2 weeks to heal. Home care The following guidelines will help you care for your burn at home: On the first day, put a small towel soaked in cool water on the area to ease severe pain. If no blister formed, you may use creams with benzocaine if the burn is painful. You may also use moisturizers with aloe vera. If a blister formed and broke and a bandage was applied, change it once a day, or as directed. If the bandage sticks, remove it by soaking it in warm water. Wash the burned area daily with soap and water. Pat dry with a clean towel. For the next 3 to 5 days, put an antibiotic cream or ointment on the area after washing. This will help to prevent an infection and to keep the bandage from sticking. If a blister formed, it will go down by itself. Or it will break on its own in the next few days. If the blister breaks, a clear fluid will leak from it for a day or two. The loose skin from the broken blister has no feeling. You can carefully trim away this skin with clean, small, sharp scissors. Sterilize by soaking in alcohol first. Or wash with soap and water. Wash the raw surface under the blister daily with soap and water. For the next 3 to 5 days, put an antibiotic cream or ointment on the area after washing. This will help prevent an infection and keep the bandage from sticking. You may use cppe-ydt-pqovjrr medicine to control pain, unless another pain medicine was prescribed. If you have chronic liver or kidney disease, talk with your healthcare provider before using acetaminophen or ibuprofen. Also talk with your provider if you've had a stomach ulcer or GI bleeding. Don't give ibuprofen to children younger than 6 months of age. Don't pick or scratch at the affected areas. Use uqyl-bnc-arwzvne medicine for itching. Wear a hat, sunscreen, and long sleeves while in the sun. Don't wear tight-fitting clothes. Add more calories and protein to your diet until the wound has healed. Drink plenty of water. Follow-up care Follow up with your healthcare provider, or as advised. Most hot water campbell heal without becoming infected. Sometimes an infection happens even with proper treatment. You should watch for the signs of infection listed below. When to seek medical advice Call your healthcare provider right away if any of these occur: Pain that gets worse Redness or swelling that gets worse Pus coming from the wound Fever of 100.4 F (38 C) or higher, or as directed by your healthcare provider The wound doesn't seem to be healing Nausea or vomiting [id number] [employer]. [address] [place] [address], [place] [address]. All rights reserved. This information is not intended as a substitute for professional medical care. Always follow your healthcare professional's instructions. Follow Up Care 01/28/2025 15:29:58 With:Follow up with primary care provider Address:Unknown When:2-4 days [facility] Nathanmarcelo Guerrier 01-28-2025 Emergency department Discharge summary Discharge Instructions Thank you for allowing [facility] to assist you with your healthcare needs. The following is important discharge information regarding your hospital visit. Diagnosis from Today's Visit Partial thickness burn wrist What to Do Next Instructions from Your Care Team No qualifying data available. Post Acute Orders No qualifying data available. You Need to Schedule the Following Appointments Follow Up with Follow up with primary care provider When:Within 2-4 days Allergies NKA Immunizations This Visit Given Vaccine Datetetanus/diphth/pertuss (Tdap) adult/adol 01/28/2025 Medications Please ask your primary doctor or pharmacist before taking any other medication not listed, including over the counter drugs, herbal medications, vitamins and or supplements as they may interact with your home medications. What How Much When Instructions Last Dose Unchanged fluticasone nasal (fluticasone proprionate NASAL 50 mcg/ spray) 2 spray(s) each nostril Once a day (in the morning) as needed for as needed for allergy symptoms Unchanged ibuprofen (Advil 200 mg oral tablet) 2 tab(s) by mouth Two (2) times a day Unchanged multivitamin (Multivitamin) 1 tab(s) by mouth Every day Unchanged polyethylene glycol 3350 (MiraLax oral powder for reconstitution) 17 gram(s) by mouth Once a day Please take this list to your next doctor s visit. Bring all medications you take, including over the counter medications, herbals and other supplements with you to your doctor s visit. Patients and families are reminded to discard old lists and to update any records with all medication providers or retail pharmacies. Education Materials Second-Degree Burn A burn occurs when skin is exposed to too much heat, sun, or harsh chemicals. A second-degree burn (partial-thickness burn) is deeper than a first-degree burn (superficial burn). It usually causes a blister to form. The blister may remain intact and gradually go away on its own. Or it may break open. The goal of treatment is to relieve pain and stop infection while the burn heals. Home care Use pain medicine as directed. If no pain medicine was prescribed, you may use ozfn-hqh-evtihqa medicine to control pain. If you have chronic liver or kidney disease, talk with your healthcare provider before using acetaminophen or ibuprofen. Also talk with your provider if you've had a stomach ulcer or GI bleeding. General care On the first day, you may put a cool compress on the wound to ease pain. A cool compress is a small towel soaked in cool water. If you were sent home with the blister intact, don't break the blister. The risk for infection is greater if the blister breaks. If a bandage was applied, change it once a day, unless told otherwise. If the bandage becomes wet or soiled, change it as soon as you can. Sometimes an infection may occur even with proper treatment. Check the burn daily for the signs of infection listed below. Eat more calories and protein until your wound is healed. Wear a hat, sunscreen, and long sleeves while in the sun to protect the skin. Don't pick or scratch at the wound. Use xylx-mjm-nweejdg medicines like diphenhydramine for itching. Avoid tight-fitting clothes. To change a bandage: Wash your hands. Take off the old bandage. If the bandage sticks, soak it off under warm running water. Once the bandage is off, gently wash the burn area with mild soap and warm water to remove any cream, ointment, ooze, or scab. You may do this in a sink, under a tub faucet, or in the shower. Rinse off the soap and gently pat dry with a clean towel. Check for signs of infection listed below. Put any prescribed antibiotic cream or ointment on the wound. Cover the burn with nonstick gauze. Then wrap it with the bandage material. Follow-up care Follow up with your healthcare provider, or as advised. When to seek medical advice Call your healthcare provider right away if you have any of these signs of infection: Fever of 100.4 F (38 C) or higher, or as directed by your healthcare provider Pain that gets worse Redness or swelling that gets worse Pus comes from the burn Red streaks in your skin coming from the burn Wound doesn't appear to be healing Nausea or vomiting [id number] [employer]. [address] [place] [address], [place] [address]. All rights reserved. This information is not intended as a substitute for professional medical care. Always follow your healthcare professional's instructions. Hot Water Burn Hot water on the skin can cause a first- or second-degree burn. A first-degree burn causes only redness and heals in a few days. A second-degree burn is deeper. It causes a blister to form. The blister may break and leak clear fluid. It may become infected. Second-degree campbell take 1 to 2 weeks to heal. Home care The following guidelines will help you care for your burn at home: On the first day, put a small towel soaked in cool water on the area to ease severe pain. If no blister formed, you may use creams with benzocaine if the burn is painful. You may also use moisturizers with aloe vera. If a blister formed and broke and a bandage was applied, change it once a day, or as directed. If the bandage sticks, remove it by soaking it in warm water. Wash the burned area daily with soap and water. Pat dry with a clean towel. For the next 3 to 5 days, put an antibiotic cream or ointment on the area after washing. This will help to prevent an infection and to keep the bandage from sticking. If a blister formed, it will go down by itself. Or it will break on its own in the next few days. If the blister breaks, a clear fluid will leak from it for a day or two. The loose skin from the broken blister has no feeling. You can carefully trim away this skin with clean, small, sharp scissors. Sterilize by soaking in alcohol first. Or wash with soap and water. Wash the raw surface under the blister daily with soap and water. For the next 3 to 5 days, put an antibiotic cream or ointment on the area after washing. This will help prevent an infection and keep the bandage from sticking. You may use dtfq-dtg-lpbzama medicine to control pain, unless another pain medicine was prescribed. If you have chronic liver or kidney disease, talk with your healthcare provider before using acetaminophen or ibuprofen. Also talk with your provider if you've had a stomach ulcer or GI bleeding. Don't give ibuprofen to children younger than 6 months of age. Don't pick or scratch at the affected areas. Use hptz-emo-bdiized medicine for itching. Wear a hat, sunscreen, and long sleeves while in the sun. Don't wear tight-fitting clothes. Add more calories and protein to your diet until the wound has healed. Drink plenty of water. Follow-up care Follow up with your healthcare provider, or as advised. Most hot water campbell heal without becoming infected. Sometimes an infection happens even with proper treatment. You should watch for the signs of infection listed below. When to seek medical advice Call your healthcare provider right away if any of these occur: Pain that gets worse Redness or swelling that gets worse Pus coming from the wound Fever of 100.4 F (38 C) or higher, or as directed by your healthcare provider The wound doesn't seem to be healing Nausea or vomiting [id number] [employer]. [address] [place] [address]. All rights reserved. This information is not intended as a substitute for professional medical care. Always follow your healthcare professional's instructions. Additional Information VACCINATE! IT SAVES LIVES! Members of the community who have not yet received the COVID-19 vaccine and would like to receive it can visit one of [facility] vaccine clinics. There are many vaccine clinic locations within the [facility]. For locations and available times, please visit [email or web address] /. It is important to note that some COVID mobile vaccine clinics are held outdoors and may be canceled in rainy or stormy conditions. To learn more about pediatric vaccinations (ages 5-11), we invite you to visit the [facility] webpage. [email or web address] To learn more about the COVID-19 vaccine, we invite you to visit the CDC website for a list of frequently asked questions. https://www.cdc.gov/coronavirus/201 9-ncov/vaccines/faq.html [facility] Patient Portal Access Instructions: Stay connected with your healthcare team and access your personal medical information anytime with the [facility] Patient Portal. If you would like a full copy of your medical records please contact the [facility] Medical Records Department Wednesday through Wednesday between 8a.m. and 4:30p.m. Please follow the directions below to access the portal: 1.Access the email account you provided upon registration to the [facility].2.Look for an invitation email from [facility].3.Open the email and access the invitation link: Accept Invitation to [facility]4.Fill in the required castellano to create your account. Sign into [email or web address] with your username and password that you [...] you will allow to register on the [facility] Patient Portal for access to your information. You can also access the [facility] Patient Portal on the [employer]. Simply click on "Health Records" under "Health Data" and then click on the [facility] logo. HOW TO SAFELY DISPOSE OF PRESCRIPTION [...] Call your local pharmacy or go to [email or web address] to find one close to you.3.Make use of household items: Use cat litter or old coffee grounds to dispose medications if other options are not available. Mix your drugs with these household products, seal them in an airtight container and throw it into the garbage. Call [facility]: [phone] to be sure your drugs can be disposed of in this way. Some medicines may require a different approach.4.Never flush your medications down the toilet. IF YOU HAVE BEEN PRESCRIBED AN OPIOIDS FOR PAIN If you have been prescribed [...] have withdrawal symptoms when a medication is stopped ? this can develop within a few days. KNOW [...] children, family, friends and visitors). The last page(s) of this document has been signed and retained as a CHART COPY Signatures Patient Education Materials Burn, Second-Degree Burn, Hot Water Medication Leaflets My discharge plan and instructions have been reviewed and explained to me and I,RENAE VIDAL understand my current condition and have read and understand these discharge instructions. I have received a written copy of the plan/instructions. If I have questions, I am aware that I should contact my doctor. Patient/Quick Sketch Artist Signature: ____ Date/Time: Relationship to Patient: __ Witness Name/Signature: Date/Time: [facility] 06-01-2024 Note bladder cancer [facility] 06-01-2024 Note [facility] cancer [facility] 06-01-2024 Note [facility] cancer [facility] 09-05-2024 Note bladder cancer [facility] 06-01-2024 Note bladder cancer [facility] 06-01-2024 Note bladder cancer [facility] 06-01-2024 Note bladder cancer [facility] 02-29-2024 Hospital Discharge instructions Patient Education 02/29/2024 17:41:10 1- [facility] General Discharge Guidelines (06/11/2023) (CUSTOM) READING SAME DAY SURGERY DISCHARGE INSTRUCTIONS PLEASE FOLLOW THE INSTRUCTIONS BELOW MARKED WITH AN X: __X_Regular Diet: Start with clear liquids, then soup and crackers. Gradually add other foods unless otherwise instructed by your surgeon __X_Drink extra fluids ACTIVTY: __X_Since you have had anesthetic, it would be advisable not to drive, drink alcohol, or make major decisions over the next 24 hours. You may require more rest tonight and tomorrow __X_Do not drive vehicle while taking narcotics and as directed by your Surgeon ____Restrict activity as follows: ____Do not have sexual intercourse. Nothing in the vagina-No tampons or Douching _x___No heavy lifting, pushing, or straining ____Elevate operative limb ____Ice as directed __X_Follow all written and verbal instructions given to you by your Doctor ____Other: BATHING/SHOWERING ____Sponge bathe until office visit. ____Sitting in tub of warm water may relieve discomfort ____May tub bathe _x___May shower in 24-48 hours with clean linen unless otherwise instructed by your Doctor DRESSING: _x___Keep operative area clean and dry _x___Check the operative area for signs of bleeding. ____Change drip pad as needed ____Wear scrotal support for comfort WATCH FOR SIGNS OF INFECTION: (Usually appears 36-48 hours after surgery) Increased temperature (101 degrees Fahrenheit or higher) Redness or swelling Increased pain Foul odor or drainage If you have any questions, please call your doctor at the number listed on your follow-up instructions. 02/29/2024 17:40:29 1-SDS URO Transurethral Resection of Bladder Tumor (06/2022)(CUSTOM) TRANSURETHRAL RESECTION OF BLADDER TUMOR TRANSURETHRAL RESECTION OF BLADDER TUMOR (TURBT): A small scope will be inserted into the bladder. The bladder tumor will be removed and sent to pathology. There are no incisions, the surgery is performed through the bladder. SURGICAL TREATMENT: Surgery: Outpatient (you will be discharged home after surgery. Occasionally you may need to stay overnight)- surgery length of time approximately 60 minutes, no surgical incisions (surgery is done within the bladder with a scope). You may have Pedroza catheter initially after surgery but generally you with be discharged without a Pedroza catheter. Occasionally, you may be discharged home with a Pedroza catheter. May have chemotherapy medication instilled into your bladder to prevent the cancer from coming back. The chemotherapy is generally well tolerated and does not cause your hair to fall out. Surgical prep: Nothing to eat or drink after midnight (night before surgery) Surgery will call the day before to go over arrival time, surgery time, restrictions, and medications. No bowel prep. Medications to hold: Blood thinners, Aspirin, Vitamins, and supplements (unless instructed otherwise). POST OPERATIVE CARE: No surgical dressing. May be discharged with indwelling pedroza catheter for a couple days. Office to call with follow up to remove catheter; this will be an watch commander appointment. Monitor urine color for excessive bleeding and/or clots. Urine may be pink tinged. Keep insertion site of catheter clean. You will use a leg bad (smaller bag) during the day and a night bag (large bag) for nighttime. Remember to keep bag lower than the bladder. Empty when - full. Keep catheter secure in place to prevent tension. ACTIVITY: No lifting more than 10-15 pounds for 2 weeks. No work typically for 2-3 days, depending on occupation. May resume driving 2-3 days if not on narcotics. May ride in a car. May shower, even with catheter in. Medications: May be discharged with pain medication and/or antibiotics. What to expect: You may see blood in urine. Like clear to light pink is normal. This can be experienced with or without a catheter in place. When to call office: Temperature of 101 F or higher If urine in pedroza catheter bag is garrett red/dark red urine with clots. Urine is not draining into bag. Clear to pink urine ok. When catheter is removed in office, please push fluids once removed. If not voided or having trouble voiding by 1-2pm please call the office. The office may bring you back in to scan your bladder to make sure you are emptying properly. If not catheter: Unable to urinate or trouble urinating or pain with urination. FOLLOW UP: Office will call to schedule post-operative appointment. Follow Up Care 01/21/2024 08:23:05 With:DIEGO BEDOYA MD, [facility] Address: [address] [place] [phone] When: Unknown Comments:Call the office to schedule a follow up appointment if not already done. [facility] 02-29-2024 Summary of episode note Discharge Instructions Thank you for allowing [facility] to assist you with your healthcare needs. The following is important discharge information regarding your hospital visit. Your Care Team CHRISTIANA BATISTA DO What to do next Scheduled Follow-Up Appointments Appointment Type When With Where Contact Information StatusURO OV Post Op 03/10/2024 09:20 AM EDT DIEGO BEDOYA MD [facility] Confirmed CV Remote Procedure HM 03/24/2024 02:45 PM EDT [facility] Confirmed CV OV 05/11/2024 03:45 PM EDT [facility] Confirmed PC OV 08/22/2024 03:30 PM CHRISTIANA BRAND DO [address] [phone] Confirmed Follow Up Appointments Follow Up with DIEGO BEDOYA MD, [facility] Where:[address] [place] [phone] [phone] Additional Information: Call the office to schedule a follow up appointment if not already done. The Following Activity and Diet Have Been Ordered for You Discharge Activity - Ordered -- Follow the post-operative/post-procedure activity instructions provided by your physician's office., 02/29/24 17:38:00 EDT Discharge Diet - Ordered -- Follow the post-operative/post-procedure diet instructions provided by your physician's office., 02/29/24 17:38:00 EDT The Following Equipment Has Been Ordered for You Discharge Home Equipment Discharge Wound Care - Ordered -- Follow the post-operative/post-procedure wound care instructions provided by your physician's office., 02/29/24 17:38:00 EDT The Following Treatments Have Been Ordered for You Discharge Labs No qualifying data available. Discharge Radiology No qualifying data available. Other Therapies No qualifying data available. Post Acute Orders No qualifying data available. Someone Will Contact You Regarding These Home Health Referrals No home referrals have been ordered for you. No one will call you. Allergies NKA Medications Please ask your primary doctor or pharmacist before taking any other medication not listed, including over the counter drugs, herbal medications, vitamins and or supplements as they may interact with your home medications. What How Much When Instructions Last Dose Unchanged fluticasone nasal (fluticasone proprionate NASAL 50 mcg/ spray) 2 spray(s) each nostril Once a day (in the morning) as needed for as needed for allergy symptoms Unchanged ibuprofen (Advil 200 mg oral tablet) 2 tab(s) by mouth Two (2) times a day Unchanged multivitamin (Multivitamin) 1 tab(s) by mouth Every day Unchanged polyethylene glycol 3350 (MiraLax oral powder for reconstitution) 17 gram(s) by mouth Once a day Please take this list to your next doctor s visit. Bring all medications you take, including over the counter medications, herbals and other supplements with you to your doctor s visit. Patients and families are reminded to discard old lists and to update any records with all medication providers or retail pharmacies. Education Materials [facility]ATHAN SAME DAY SURGERY DISCHARGE INSTRUCTIONS PLEASE FOLLOW THE INSTRUCTIONS BELOW MARKED WITH AN X: __X_Regular Diet: Start with clear liquids, then soup and crackers. Gradually add other foods unless otherwise instructed by your surgeon __X_Drink extra fluids ACTIVTY: __X_Since you have had anesthetic, it would be advisable not to drive, drink alcohol, or make major decisions over the next 24 hours. You may require more rest tonight and tomorrow __X_Do not drive vehicle while taking narcotics and as directed by your Surgeon ____Restrict activity as follows: ____Do not have sexual intercourse. Nothing in the vagina-No tampons or Douching _x___No heavy lifting, pushing, or straining ____Elevate operative limb ____Ice as directed __X_Follow all written and verbal instructions given to you by your Doctor ____Other: BATHING/SHOWERING ____Sponge bathe until office visit. ____Sitting in tub of warm water may relieve discomfort ____May tub bathe _x___May shower in 24-48 hours with clean linen unless otherwise instructed by your Doctor DRESSING: _x___Keep operative area clean and dry _x___Check the operative area for signs of bleeding. ____Change drip pad as needed ____Wear scrotal support for comfort WATCH FOR SIGNS OF INFECTION: (Usually appears 36-48 hours after surgery) Increased temperature (101 degrees Fahrenheit or higher) Redness or swelling Increased pain Foul odor or drainage If you have any questions, please call your doctor at the number listed on your follow-up instructions. TRANSURETHRAL RESECTION OF BLADDER TUMOR TRANSURETHRAL RESECTION OF BLADDER TUMOR (TURBT): A small scope will be inserted into the bladder. The bladder tumor will be removed and sent to pathology. There are no incisions, the surgery is performed through the bladder. SURGICAL TREATMENT: Surgery: Outpatient (you will be discharged home after surgery. Occasionally you may need to stay overnight)- surgery length of time approximately 60 minutes, no surgical incisions (surgery is done within the bladder with a scope). You may have Pedroza catheter initially after surgery but generally you with be discharged without a Pedroza catheter. Occasionally, you may be discharged home with a Pedroza catheter. May have chemotherapy medication instilled into your bladder to prevent the cancer from coming back. The chemotherapy is generally well tolerated and does not cause your hair to fall out. Surgical prep: Nothing to eat or drink after midnight (night before surgery) Surgery will call the day before to go over arrival time, surgery time, restrictions, and medications. No bowel prep. Medications to hold: Blood thinners, Aspirin, Vitamins, and supplements (unless instructed otherwise). POST OPERATIVE CARE: No surgical dressing. May be discharged with indwelling pedroza catheter for a couple days. Office to call with follow up to remove catheter; this will be an watch commander appointment. Monitor urine color for excessive bleeding and/or clots. Urine may be pink tinged. Keep insertion site of catheter clean. You will use a leg bad (smaller bag) during the day and a night bag (large bag) for nighttime. Remember to keep bag lower than the bladder. Empty when - full. Keep catheter secure in place to prevent tension. ACTIVITY: No lifting more than 10-15 pounds for 2 weeks. No work typically for 2-3 days, depending on occupation. May resume driving 2-3 days if not on narcotics. May ride in a car. May shower, even with catheter in. Medications: May be discharged with pain medication and/or antibiotics. What to expect: You may see blood in urine. Like clear to light pink is normal. This can be experienced with or without a catheter in place. When to call office: Temperature of 101 F or higher If urine in pedroza catheter bag is garrett red/dark red urine with clots. Urine is not draining into bag. Clear to pink urine ok. When catheter is removed in office, please push fluids once removed. If not voided or having trouble voiding by 1-2pm please call the office. The office may bring you back in to scan your bladder to make sure you are emptying properly. If not catheter: Unable to urinate or trouble urinating or pain with urination. FOLLOW UP: Office will call to schedule post-operative appointment. Additional Information VACCINATE! IT SAVES LIVES! Members of the community who have not yet received the COVID-19 vaccine and would like to receive it can visit one of [facility] vaccine clinics. There are many vaccine clinic locations within the State. For locations and available times, please visit [email or web address] It is important to note that some COVID mobile vaccine clinics are held outdoors and may be canceled in rainy or stormy conditions. To learn more about pediatric vaccinations (ages 5-11), we invite you to visit the [facility] webpage. [email or web address] To learn more about the COVID-19 vaccine, we invite you to visit the CDC website for a list of frequently asked questions.https://www.cdc.gov/coron avirus/2019-ncov/vaccines/faq.html [facility] Patient Portal Access Instructions: Stay connected with your healthcare team and access your personal medical information anytime with the [facility] Patient Portal. Please follow the directions below to create your [employer] account: 1.Access the email account you provided upon registration to the hospital/physician office.2.Look for an invitation email from [facility].3.Open the email and access the invitation link: Accept Invitation to [facility].4.Fill in the required castellano to create your account. To access your account, visit [email or web address]. Click the blue button labeled "Access Patient Portal" and then log in with the username and password that you created in the steps above. You will be able to view your test results, lab results, a summary of your visits, upcoming appointments and more. There is also a convenient messaging option where you can send secure messages to your provider. In addition, you will have the ability to download any documents or summaries to your computer and/or send the information securely to a physician. Remember that your healthcare information is confidential, so carefully consider who you will allow to register on the [facility] Patient Portal for access to your information. You can also access the [facility] Patient Portal on the [facility] m[facility]enzie. Simply click on "Patient Portal" and then log into your account. If you would like to receive a full copy of your medical records, please contact the [facility] Medical Records Department by calling [phone], Wednesday through Wednesday between 8 a.m. and 4:30 p.m. HOW TO SAFELY DISPOSE OF PRESCRIPTION MEDICATIONS [...] Call your local pharmacy or go to http://bit.Life in Hi-Fi/1K7Dr6k to find one close to you.3.Make use of household items: Use cat litter or old coffee grounds to dispose medications if other options are not available. Mix your drugs with these household products, seal them in an airtight container and throw it into the garbage. Call [facility]: [phone] to be sure your drugs can be [...] a CHART COPY. Signatures Patient Education Materials 1- SDS General Discharge Guidelines (06/11/2023) (CUSTOM) 1-SDS URO Transurethral Resection of Bladder Tumor (06/2022)(CUSTOM) Medication Leaflets My discharge plan and instructions have been reviewed and explained to me and I,RENAE VIDAL understand my current condition and have read and understand these discharge instructions. I have received a written copy of the plan/instructions. If I have questions, I am aware that I should contact my doctor. Patient/Quick Sketch Artist Signature: ____ Date/Time: Relationship to Patient: __ Witness Name/Signature: Date/Time: [facility] 02-29-2024 Anesthesiology Consult note Patient: RENAE VIDAL Age: 69 years Sex: Female : 1955 Associated Diagnoses: None Author: HAMMAD WRAY MD Postoperative Information Post Operative Info: Post op day: Post Anesthesia Care Unit. Patient location: PACU. Assessment Postanesthesia assessment Vitals: Vital signs from flowsheet : Vital Signs 02/29/2024 16:54 EDT Respiratory Rate 16 br/min Systolic Blood Pressure Non-Invasive 165 mmHg HI Diastolic Blood Pressure Non-Invasive 82 mmHg 02/29/2024 16:37 EDT Heart Rate Monitored 64 bpm Respiratory Rate 16 br/min Systolic Blood Pressure Non-Invasive 148 mmHg HI Diastolic Blood Pressure Non-Invasive 104 mmHg >HHI Mean Arterial Pressure (NBP) 118 mmHg 02/29/2024 16:22 EDT Heart Rate Monitored 70 bpm Respiratory Rate 16 br/min Systolic Blood Pressure Non-Invasive 160 mmHg HI Diastolic Blood Pressure Non-Invasive 97 mmHg HI Mean Arterial Pressure (NBP) 114 mmHg 02/29/2024 16:07 EDT Temperature Temporal Artery 36.1 DegC Heart Rate Monitored 74 bpm Respiratory Rate 16 br/min Systolic Blood Pressure Non-Invasive 140 mmHg Diastolic Blood Pressure Non-Invasive 84 mmHg Mean Arterial Pressure (NBP) 99 mmHg 02/29/2024 16:00 EDT Respiratory Rate - Anes 12 br/min br/min 02/29/2024 15:59 EDT Systolic Blood Pressure Non-Invasive 103 mmHg mmHg Diastolic Blood Pressure Non-Invasive 68 mmHg mmHg 02/29/2024 15:56 EDT Systolic Blood Pressure Non-Invasive 101 mmHg mmHg Diastolic Blood Pressure Non-Invasive 62 mmHg mmHg 02/29/2024 15:55 EDT Heart Rate Monitored 79 bpm bpm Respiratory Rate - Anes 13 br/min br/min 02/29/2024 15:53 EDT Systolic Blood Pressure Non-Invasive 107 mmHg mmHg Diastolic Blood Pressure Non-Invasive 64 mmHg mmHg 02/29/2024 15:50 EDT Heart Rate Monitored 90 bpm bpm Respiratory Rate - Anes 14 br/min br/min Systolic Blood Pressure Non-Invasive 141 mmHg mmHg Diastolic Blood Pressure Non-Invasive 70 mmHg mmHg 02/29/2024 15:47 EDT Systolic Blood Pressure Non-Invasive 130 mmHg mmHg Diastolic Blood Pressure Non-Invasive 76 mmHg mmHg 02/29/2024 15:45 EDT Heart Rate Monitored 61 bpm bpm Respiratory Rate - Anes 12 br/min br/min 02/29/2024 15:44 EDT Systolic Blood Pressure Non-Invasive 82 mmHg mmHg Diastolic Blood Pressure Non-Invasive 56 mmHg mmHg 02/29/2024 15:41 EDT Systolic Blood Pressure Non-Invasive 100 mmHg mmHg Diastolic Blood Pressure Non-Invasive 57 mmHg mmHg 02/29/2024 15:40 EDT Heart Rate Monitored 68 bpm bpm Respiratory Rate - Anes 13 br/min br/min 02/29/2024 15:38 EDT Systolic Blood Pressure Non-Invasive 103 mmHg mmHg Diastolic Blood Pressure Non-Invasive 68 mmHg mmHg 02/29/2024 15:35 EDT Heart Rate Monitored 51 bpm bpm Respiratory Rate - Anes 10 br/min br/min Systolic Blood Pressure Non-Invasive 105 mmHg mmHg Diastolic Blood Pressure Non-Invasive 70 mmHg mmHg 02/29/2024 15:30 EDT Respiratory Rate - Anes 0 br/min br/min Systolic Blood Pressure Non-Invasive 167 mmHg mmHg Diastolic Blood Pressure Non-Invasive 87 mmHg mmHg 02/29/2024 14:00 EDT Temperature Temporal Artery 36.2 DegC Apical Heart Rate 65 bpm Respiratory Rate 18 br/min Systolic Blood Pressure Non-Invasive 121 mmHg Diastolic Blood Pressure Non-Invasive 82 mmHg . Mental status: at preoperative baseline. Respiratory function: respirations are non-labored, Stable. Respiratory support: none. CV function: Stable. Cardiovascular support: none. Pain: Satisfactory. Nausea status: Satisfactory. Postoperative hydration status: within normal limits. Notes: Patient is sufficiently recovered from anesthesia to participate in the evaluation. No follow-up care needed. No complications post-anesthesia.. Digitally Signed by HAMMAD WRAY MD on 02/29/2024 05:09 PM [facility] 02-29-2024 Anesthesiology Consult note Patient: RENAE VIDAL Age: 69 years Sex: Female : 1955 Associated Diagnoses: None Author: HOLLIE OCHOA MD Preoperative Information > 8 hours Anesthesia history Patient's history: negative. Family's history: negative. Health Status Allergies: Allergic Reactions (Selected) NKA, Allergies (1) ActiveSeverityReaction NKANone Documented Current medications: (Selected) Inpatient Medications Ordered Kefzol: 2 gram(s), 20 mL, 240 mL/hr, IV Push (INT), PREOP pharm LR 1,000 mL: 20 mL/hr, Intravenous gemcitabine INTRAVESICAL: 1,000 mg, 26.3 mL, 0 mL/hr, Intravesical (INT), PREOP pharm gemcitabine INTRAVESICAL: 1,000 mg, 26.3 mL, 0 mL/hr, Intravesical (INT), PREOP pharm Documented Medications Documented Advil 200 mg oral tablet: 400 mg, 2 tab(s), Oral, BID, 0 Refill(s) MiraLax oral powder for reconstitution: 17 gram(s), Oral, qDay, 0 Refill(s) Multivitamin: 1 tab(s), Oral, Daily, 0 Refill(s) fluticasone proprionate NASAL 50 mcg/ spray: 100 mcg, 2 spray(s), Nostril, each, qAM, PRN: as needed for allergy symptoms, 0 Refill(s), Medications (4) Active Scheduled: (3) ceFAZolin syringe 2 gram(s) 20 mL, IV Push (INT), PREOP pharm gemcitabine 1,000 mg 26.3 mL, Intravesical (INT), PREOP pharm gemcitabine 1,000 mg 26.3 mL, Intravesical (INT), PREOP pharm Continuous: (1) Lactated Ringers 1,000 mL 1,000 mL, Intravenous, 20 mL/hr PRN: (0) Problem list: Medical Atrial fibrillation / SNOMED CT 37012462 / Confirmed BMI less than 19,adult / SNOMED CT 459151206 / Confirmed Bradycardia / SNOMED CT 87082550 / Confirmed Breast screening declined / SNOMED CT 3043831032 / Confirmed Cough / SNOMED CT 60000536 / Confirmed COVID-19 virus infection / SNOMED CT 5367617457 / Confirmed History of nephrolithiasis / SNOMED CT 4470345531 / Confirmed ILR / SNOMED CT 1033404693 / Confirmed Hypercalcemia / SNOMED CT 754029653 / Confirmed Hyperglycemia / SNOMED CT 981771381 / Confirmed Bladder cancer / SNOMED CT 7342382486 / Confirmed Neck mass / SNOMED CT 523367406 / Confirmed COPD, mild / SNOMED CT 135535907 / Confirmed Mixed hyperlipidemia / SNOMED CT 737672048 / Confirmed Multiple lung nodules / SNOMED CT 4127288497 / Confirmed Osteoporosis screening declined / SNOMED CT 6044745843 / Confirmed PALPITATIONS / SNOMED CT 473224070 / Confirmed PONV (postoperative nausea and vomiting) / SNOMED CT 4480195 / Confirmed Rosacea / SNOMED CT 4173392258 / Confirmed SVT (supraventricular tachycardia) / SNOMED CT 98868260 / Confirmed Edema / SNOMED CT 013368373 / Confirmed Abnormal thyroid blood test / SNOMED CT 832417353 / Confirmed DECREASED BMI (Renamed from UNDERWEIGHT) / SNOMED CT 786342636 / Confirmed PREMATURE VENTRICULAR CONTRACTION / SNOMED CT 36405456 / Confirmed, Active Problems (34) Abnormal thyroid blood test Acid reflux Arthritis Atrial fibrillation Bladder cancer BMI less than 19,adult Bradycardia Breast screening declined Bruises easily Constipation COPD, mild Cough COVID-19 virus infection DECREASED BMI (Renamed from UNDERWEIGHT) Edema Environmental allergies Ex-cigarette smoker H/O cardiac radiofrequency ablation History of nephrolithiasis Hypercalcemia Hyperglycemia ILR Implantable loop recorder present Kidney stones Mixed hyperlipidemia Multiple lung nodules Neck mass Osteoporosis screening declined PALPITATIONS PONV (postoperative nausea and vomiting) PREMATURE VENTRICULAR CONTRACTION Rosacea Snores SVT (supraventricular tachycardia) Histories Past Medical History: Active COVID-19 virus infection (3810207776): Onset in the month of 04/2023 at 68 years Comments: 02/16/2024 EDT 15:39 EDT - CURT Turcios DENIES HOSPITALIZATION OR COMPLICATIONS ILR (6732792462): Onset on 11/14/2018 at 63 years. Comments: - [employer] [id number] 10/31/2021 EST 13:21 EST - Fatoumata, RN Loraine M loop recorder Neck mass (173194473) Mixed hyperlipidemia (601913599) BMI less than 19,adult (204144768) SVT (supraventricular tachycardia) (25250051) Breast screening declined (6717139984) Comments: 10/31/2021 EST 13:21 CURT Gonzalezia Aissatou her criminal lawyer insisted she have a mammogram so one done in sep 2021 and pt states it was normal Atrial fibrillation (88229364) Hyperglycemia (413956369) PONV (postoperative nausea and vomiting) (4891987) Procedure history: Cystoscopy (0880895949) on 06/30/2023 at 68 Years. Cataract extraction and implantation of intraocular lens (8566914509) in 2022 at 68 Years. Comments: 02/16/2024 15:38 CURT Mas BILATERAL Implantation of insertable loop recorder (217774776) in the month of 05/2022 at 67 Years. Cystoscopy and transurethral resection of bladder tumor (2159698767) on 11/07/2021 at 66 Years. 24 hour Holter tape (076750561) on 08/08/2019 at 64 Years. Comments: 07/18/2020 9:28 Naomi Sequeira RN [place]: IMPRESSION: Patient's Holter monitor is significant for PVCs, some of them were in bigeminy beats, some of them were in trigeminy and occasional runs of paroxysmal SVT long RP type. Longest SVT was 9 beats long. Clinical correlation suggested Catheter ablation for cardiac arrhythmia (9508345250) on 03/27/2019 at 64 Years. Comments: 07/18/2020 9:30 Naomi Sequeira RN Conclusions: 1) Successful 4 Pulmonary Vein isolation with antral ablations, with confirmation of block in and out of the veins. 2) no evidence of inducible arrhythmia on up to 6 mcg/min of Isuprel. 3:Normal Conduction system 4) No evidence of atrial tachycardia, AVNRT or a flutter despite Isuprel at 6 mcg. Implantation of insertable loop recorder ([id number]) in 2019 at 64 Years. Comments: 10/23/2020 9:43 Lexus Nunez RN Implantation of Loop Recorder 11/14/2018 [employer]onic LNQ11 Reveal LINQ Serial [id number] Echocardiogram ([id number]) on 12/13/2017 at 62 Years. Comments: 07/18/2020 9:31 Naomi Sequeira RN Summary: 1. Left ventricle: The cavity size is normal. Wall thickness is normal. Mid cavitary false tendon noted. Systolic function is normal. The estimated ejection fraction is 60-65%. Wall motion is normal; there are no regional wall motion abnormalities. 2. Right ventricle: The RV systolic pressure by Doppler is 24 mm Hg. 3. Right atrium: The estimated right atrial pressure is 3 mm Hg. 4. Pericardium, extracardiac: A small anterior pericardial effusion cannot be excluded Tubal (563576611). Comments: 07/06/2019 16:37 Sonia Miramontes LPN Left tubal ligation w/ salpingectomy Appendectomy (511004813). Tonsillectomy and adenoidectomy (359867587). Excision of cyst (0264961583). Comments: 02/16/2024 15:26 CURT Mas RIGHT ANKLE Trapeziectomy (524555684). Comments: 02/16/2024 15:30 CURT Mas BILATERAL Repair of inguinal hernia (98394748). Comments: 02/16/2024 15:31 CURT Mas RIGHT Extraction of wisdom tooth (132674594). Lithotripsy (359073267). Social History: Social & Psychosocial Habits Alcohol 02/29/2024 Use: Past Employment/School 02/16/2024 Status: Retired Substance Abuse 02/29/2024 Use: Never Tobacco 02/29/2024 Tobacco Use: Former smoker, quit more Type: Cigarettes Started at age: 14 Years Stopped at age: 26 Years Home/Environment 02/29/2024 Living situation: Home/Independent Safe place to go: Yes Domestic Concerns None Lives In Single level home Current Home Treatments None Special Services and Community Resources None Spouse Name ty Marital Status of Patient if Patient Independent Adult: Nutrition/Health 02/29/2024 Type of diet: Regular Caffeine intake amount: coffee, 3 servings daily Appetite Good Eating Difficulties None Physical Examination Measurements from flowsheet : Measurements 02/29/2024 14:00 EDT Height 162.6 cm Height in inches 64 inch(es) Admission Weight 48.7 kg Weight Lbs 107.1 lb [place] Body Weight 54.74 kg Type of Scale Used Bed scale Admission Body Mass Index 18.42 m2 General: Alert and oriented, No acute distress. Airway: Mallampati classification: I (soft palate, fauces, uvula, pillars visible). Head: Normocephalic, Atraumatic. Dentition Evaluation: Intact, Own teeth. Respiratory: Lungs are clear to auscultation, Respirations are non-labored. Cardiovascular: Normal rate. Heart Sounds: Normal. Integumentary: Intact. Neurologic: Alert, Oriented. Review / Management Documentation reviewed: Current records, Reviewed prior records. Assessment and Plan [place] [employer] of Anesthesiologists (ASA) physical status classification: Class III. History of acid reflux, arthritis, atrial fibrillation, bladder cancer, bradycardia, COPD, former tobacco use, kidney stones, lung nodules, palpitations, HENRRY V, SVT. Patient denies chest pain, shortness of breath, syncope, palpitations. No other anginal equivalents reported. Anesthetic Preoperative Plan Anesthetic technique: General. Induction: intravenously. Maintenance airway: Laryngeal mask airway. Postoperative pain management: Per surgeon. Risks discussed: nausea, vomiting, headache, sore throat, dental injury, hypotension, allergic reaction, serious complications. Informed consent: signed by patient. Digitally Signed by HOLLIE OCHOA MD on 02/29/2024 03:10 PM [facility] 02-17-2024 Note . MICRO - Microbiology PROCEDURE: Urine Culture [*1] SOURCE: Urine, Clean Catch BODY SITE: COLLECTED DATE/TIME: 02/16/2024 13:52 EDT RECEIVED DATE/TIME: 02/16/2024 19:52 EDT START DATE/TIME: 02/16/2024 19:53 EDT FREE TEXT SOURCE: FINAL REPORTS Final Report [] Verified Date/Time/Personnel: 02/17/2024 14:26 EDT <10,000 cfu/ml. No Significant growth. Sensitivity not indicated. Performing Locations *1: This test was performed at: [facility], [address] [place] [address], [phone] , [facility] ([place]) 02-04-2024 Note ORIGINAL EXAMINATION: ULTRASOUND OF THE KIDNEYS 02/04/2024 3:04 pm COMPARISON: 06/11/2023 HISTORY: ORDERING SYSTEM PROVIDED HISTORY: Reason for Exam: flank pain History of recurrent bladder neoplasm FINDINGS: Right and left kidneys measure 9.3 x 3.7 x 5.6 cm, and 9.3 x 3.6 x 6 2 cm respectively. A 5 mm hyperechoic focus in the mid right kidney and a 1.1 cm in pole cyst in the lower pole of the right kidney. Left kidney demonstrates multiple cysts measuring upwards of 4.6 cm. There is no hydronephrosis or solid renal mass. Distended urinary bladder contains 242 mL of urine. Bladder mucosa reveals no discrete mass lesion. Postvoid residual volume is 5 mL. Bladder wall is not thickened. IMPRESSION: 1. Bilateral renal cysts. 2. 5 mm nonobstructing calculus in the mid right kidney. Interpreted by: Heri Harper DO Preliminary Report By: Heri Harper DO Electronically signed By Heri Harper DO Dictated Date: 02/04/2024 4:23:25 PM Prelim Date: 02/04/2024 4:26:02 PM Sign Date: 02/04/2024 4:26:02 PM Ordering Provider: DIEGO BEDOYA [facility] 01-13-2024 Note This sample was evaluated using standardized diagnostic criteria published in the [employer] System for Reporting Urinary Cytology (TPS), Second edition, 2021. The following Risk of High-grade urothelial carcinoma is based on published data from TPS. Individual institutional rates may vary.TPS Cytology Diagnostic category Risk of high-grade malignancy Non diagnostic 0-16% Negative for High grade urothelial carcinoma 8-24% Low grade urothelial neoplasm 0-44% Atypical Urothelial cells 24-53% Suspicious for High grade urothelial carcinoma 59-94% Malignant- High grade urothelial carcinoma 76-100% [facility] 01-13-2024 Note This sample was evaluated using standardized diagnostic criteria published in the [employer] System for Reporting Urinary Cytology (TPS), Second edition, 2021. The following Risk of High-grade urothelial carcinoma is based on published data from TPS. Individual institutional rates may vary.TPS Cytology Diagnostic category Risk of high-grade malignancy Non diagnostic 0-16% Negative for High grade urothelial carcinoma 8-24% Low grade urothelial neoplasm 0-44% Atypical Urothelial cells 24-53% Suspicious for High grade urothelial carcinoma 59-94% Malignant- High grade urothelial carcinoma 76-100% [facility] 01-13-2024 Note This sample was evaluated using standardized diagnostic criteria published in the [employer] System for Reporting Urinary Cytology (TPS), Second edition, 2021. The following Risk of High-grade urothelial carcinoma is based on published data from TPS. Individual institutional rates may vary.TPS Cytology Diagnostic category Risk of high-grade malignancy Non diagnostic 0-16% Negative for High grade urothelial carcinoma 8-24% Low grade urothelial neoplasm 0-44% Atypical Urothelial cells 24-53% Suspicious for High grade urothelial carcinoma 59-94% Malignant- High grade urothelial carcinoma 76-100% [facility] 01-13-2024 Note This sample was evaluated using standardized diagnostic criteria published in the [employer] System for Reporting Urinary Cytology (TPS), Second edition, 2021. The following Risk of High-grade urothelial carcinoma is based on published data from TPS. Individual institutional rates may vary.TPS Cytology Diagnostic category Risk of high-grade malignancy Non diagnostic 0-16% Negative for High grade urothelial carcinoma 8-24% Low grade urothelial neoplasm 0-44% Atypical Urothelial cells 24-53% Suspicious for High grade urothelial carcinoma 59-94% Malignant- High grade urothelial carcinoma 76-100% [facility] 01-13-2024 Note This sample was evaluated using standardized diagnostic criteria published in the [employer] System for Reporting Urinary Cytology (TPS), Second edition2021. The following Risk of High-grade urothelial carcinoma is based on published data from TPS. Individual institutional rates may vary.TPS Cytology Diagnostic category Risk of high-grade malignancy Non diagnostic 0-16% Negative for High grade urothelial carcinoma 8-24% Low grade urothelial neoplasm 0-44% Atypical Urothelial cells 24-53% Suspicious for High grade urothelial carcinoma 59-94% Malignant- High grade urothelial carcinoma 76-100% [facility] 01-13-2024 Note This sample was evaluated using standardized diagnostic criteria published in the [employer] System for Reporting Urinary Cytology (TPS), Second edition, 2021. The following Risk of High-grade urothelial carcinoma is based on published data from TPS. Individual institutional rates may vary.TPS Cytology Diagnostic category Risk of high-grade malignancy Non diagnostic 0-16% Negative for High grade urothelial carcinoma 8-24% Low grade urothelial neoplasm 0-44% Atypical Urothelial cells 24-53% Suspicious for High grade urothelial carcinoma 59-94% Malignant- High grade urothelial carcinoma 76-100% [facility] 01-13-2024 Note This sample was evaluated using standardized diagnostic criteria published in the [employer] System for Reporting Urinary Cytology (TPS), Second edition, 2021. The following Risk of High-grade urothelial carcinoma is based on published data from TPS. Individual institutional rates may vary.TPS Cytology Diagnostic category Risk of high-grade malignancy Non diagnostic 0-16% Negative for High grade urothelial carcinoma 8-24% Low grade urothelial neoplasm 0-44% Atypical Urothelial cells 24-53% Suspicious for High grade urothelial carcinoma 59-94% Malignant- High grade urothelial carcinoma 76-100% [facility] 06-11-2023 Note ORIGINAL EXAMINATION: LIMITED RETROPERITONEAL ULTRASOUND06/11/2023 [...] Sign Date: 06/11/2023 5:07:36 PM Ordering Provider: DIEGO BEDOYA [facility] 12-01-2022 Note Pathology report verified by [facility] Screened by: STEVE CHOWDHURY Electronically signed by RUBENS CARRILLO Sign-Out Date: 12/02/2022 11:14 Performing Lab: [address] Pathology Dept [facility] 12-01-2022 Note Pathology report verified by [facility] Screened by: STEVE CHOWDHURY Electronically signed by RUBENS CARRILLO Sign-Out Date: 12/02/2022 11:14 Performing Lab: [address] Pathology Dept [facility] 12-01-2022 Note Pathology report verified by [facility] Screened by: STEVE CHOWDHURY Electronically signed by RUBENS CARRILLO Sign-Out Date: 12/02/2022 11:14 Performing Lab: [address] Pathology Dept [facility] 12-01-2022 Note Pathology report verified by [facility] Screened by: STEVE CHOWDHURY Electronically signed by RUBENS CARRILLO Sign-Out Date: 12/02/2022 11:14 Performing Lab: [place] [id number] [facility] Pathology Dept [facility] 12-01-2022 Note Pathology report verified by [facility] Screened by: STEVE CHOWDHURY Electronically signed by RUBENS CARRILLO Sign-Out Date: 12/02/2022 11:14 Performing Lab: [facility], [address] [place], [place] [id number] [facility] Pathology Dept [facility] 06-19-2022 Hospital Discharge instructions Patient Education 06/19/2022 13:30:43 3- Loop [...] the past. Discuss driving restrictions with your cabinet worker. FOLLOW UP Follow up with the Pacemaker [...] sends information from the device to your cabinet worker (heart doctor) office. How will I get [...] where you sleep. The monitor will automatically excelsior picker heart signals and send the information [...] you have questions. [facility]: [phone] Ask for the Device Clinic or patrick-in extension [phone] or [phone] when prompted. Device Clinic Location: [facility] (not the physician office building). Enter the [facility] and take the elevators to the 2nd [...] Your device card will tell you the manager hydraulic. Using the search box: [employer]: Georgi Communicator quick start oPatient Help: Medtr[employer]: MyCareLink quick start oPatient Help: St Juan (Sniedr): [email or web address] quick start oPatient Help: Other important [...] Up Care 05/21/2022 12:38:20 With:DEVICE CLINIC Address: [address] [place] [address] -[address] [address]- [phone] When:09/18/2022 14:30:00 [facility] 06-19-2022 Summary of episode note Discharge Instructions Thank you for allowing [facility] to assist you with your healthcare needs. The following is important discharge information regarding your hospital visit. Your Care Team CHRISTIANA BATISTA DO What to do next Scheduled Follow-Up Appointments Appointment Type When With Where Contact InformationPC OV 08/07/2022 03:00 PM EST CHRISTIANA BATISTA DO [address] [id number] URO Off Proc Cysto 09/02/2022 09:00 AM EST DIEGO BEDOYA MD [facility] CV Office Procedure ILR 09/18/2022 02:30 PM EST [facility] CV OV 05/20/2023 04:15 PM EDT [facility] Follow Up Appointments Follow Up with DEVICE CLINIC When 09/18/2022 02:30 PM EST Where: [address] [place] [address] -[address] [id number]- [phone] The Following Activity and Diet Have Been [...] the past. Discuss driving restrictions with your cabinet worker. FOLLOW UP Follow up with the Pacemaker [...] sends information from the device to your cabinet worker (heart doctor) office. How will I get [...] where you sleep. The monitor will automatically excelsior picker heart signals and send the information [...] you have questions. [facility]: [phone] Ask for the Device Clinic or patrick-in extension [phone] or [phone] when prompted. Device Clinic Location: [facility] (not the physician office building). Enter the [facility] and take the elevators to the 2nd [...] Your device card will tell you the manager hydraulic. Using the search box: [employer]: Georgi Communicator quick start o Patient Help: Medtronic: MyCareLink quick start o Patient Help: St Juan (Snider): [email or web address] quick start o Patient Help: Other important [...] to receive it can visit one of [facility] vaccine clinics. There are many vaccine clinic locations within the [facility]. For locations and available times, please visit [email or web address] It is important to note that some COVID mobile vaccine clinics are held outdoors and may be canceled in rainy or stormy conditions. To learn more about pediatric vaccinations (ages 5-11), we invite you to visit the [facility] webpage. [email or web address] -[email or web address] To learn more about the COVID-19 vaccine, we invite you to visit the [facility] website for a list of frequently asked questions. [email or web address] [email or web address] [facility] Patient Portal Access Instructions: Stay connected with your healthcare team and access your personal medical information anytime with the [facility] Patient Portal.If you would like a full copy of your medical records, please contact the [facility] Medical Records Department, Wednesday through Wednesday between 8a.m. and 4:30p.m. Please follow the directions below to access the portal: 1.Access the email account you provided upon registration to the hospital.2.Look for an invitation email from [facility].3.Open the email and access the invitation link: Accept Invitation to [facility]4.Fill in the required castellano to create your account. Sign into [email or web address] with your username and password that you [...] you will allow to register on the [facility] Patient Portal for access to your information. You can also access the [facility] Patient Portal on the [employer] mackenzie. Simply click on "Health Records" under "Health Data" and then click on the Plazes logo. HOW TO SAFELY DISPOSE OF PRESCRIPTION [...] Call your local pharmacy or go to [email or web address] to find one close to you.3.Make use of household items: Use cat litter or old coffee grounds to dispose medications if other options are not available. Mix your drugs with these household products, seal them in an airtight container and throw it into the garbage. Call [facility]: [phone] to be sure your drugs can be [...] aware that I should contact my doctor. 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 Her [id number] (annual stroke risk = 1.3%) (without female [...] At this time, given her ILRis at [facility], we will proceed with loop recorder change [...] When 09/18/2022 02:30 PM EST Where: [address] [place] [address] [address] [place] [address]- [phone] Follow Up Labs/Studies Discharge Labs No Follow-up Labs Discharge Studies No Follow-up Studies Discharge Diet no change Discharge Activity Discharge Activity - Ordered -- May Shower, no restrictions, 06/19/22 12:39:00 EDT Condition on Discharge stable Discharge Disposition Home Information Provided To patient Digitally Signed by LAUREN REYNOLDS MD on 06/19/2022 01:02 PM [facility] 11-07-2021 Hospital Discharge instructions Patient Education 11/07/2021 15:33:45 1-[facility] Discharge Instructions Template (06/2018) (CUSTOM) READING SAME DAY SURGERY DISCHARGE INSTRUCTIONS PLEASE FOLLOW [...] us better serve our patients. Form: 1522 (80009) R: 01/03 Follow Up Care 10/27/2021 07:52:19 With:DIEGO BEDOYA MD, [facility] Address: [phone] When: Unknown Comments:Office will call to schedule follow up appointment. [facility] Evaluation + Plan note Future Appointments Appointment Date:10/06/2021 09:15:00 AM Scheduled Provider: Location:[facility] Appointment Type:CV Remote Procedure HM Appointment Date:01/16/2022 04:40:00 PM Scheduled Provider:CHRISTIANA BATISTA DO Location:[facility] Appointment Type:PC OV Appointment Date:02/05/2022 04:30:00 PM Scheduled Provider: Location:[facility] Appointment Type:CV OV Future Scheduled TestsMagnesium Level 07/25/21Thyroid Antibodies 07/25/21Thyroid Stimulating Hormone 07/25/21Free T4 07/25/21A1C Hemoglobin 07/25/21Complete Blood Count 07/25/21Fr T3 07/25/21Lipid Profile 07/25/21Complete Metabolic Panel 07/25/21 [facility] Evaluation + Plan note Future Appointments Appointment Date:10/22/2021 08:10:00 AM Scheduled Provider:DIEGO BEDOYA MD Location:UROLOGY Appointment Type:URO Off Proc Cysto Appointment Date:01/08/2022 03:15:00 PM Scheduled Provider: Location:[facility] Appointment Type:CV Office Procedure ILR Appointment Date:01/16/2022 04:40:00 PM Scheduled Provider:CHRISTIANA BATISTA DO Location:[facility] Appointment Type:PC OV Appointment Date:02/05/2022 04:30:00 PM Scheduled Provider: Location:[facility] Appointment Type:CV OV Appointment Date:04/09/2022 10:00:00 AM Scheduled Provider: Location:[facility] Appointment Type:CV Remote Procedure HM Future Scheduled TestsMagnesium Level 07/25/21Thyroid Antibodies 07/25/21Thyroid Stimulating Hormone 07/25/21Fr T4 07/25/21A1C Hemoglobin 07/25/21Complete Blood Count 07/25/21Fr T3 07/25/21Lipid Profile 07/25/21Complete Metabolic Panel 07/25/21 [facility] Evaluation + Plan note Future Appointments Appointment Date:01/08/2022 03:15:00 PM Scheduled Provider: Location:[facility] Appointment Type:CV Office Procedure ILR Appointment Date:01/16/2022 04:40:00 PM Scheduled Provider:CHRISTIANA BATISTA DO Location:[facility] Appointment Type:PC OV Appointment Date:02/05/2022 04:30:00 PM Scheduled Provider: Location:[facility] Appointment Type:CV OV Appointment Date:04/09/2022 10:00:00 AM Scheduled Provider: Location:[facility] Appointment Type:CV Remote Procedure HM Future Scheduled TestsMagnesium Level 07/25/21Thyroid Antibodies 07/25/21Thyroid Stimulating Hormone 07/25/21Thyroid Stimulating Hormone 10/24/21Free T4 07/25/21A1C Hemoglobin 07/25/21A1C Hemoglobin 10/24/21Complete Blood Count 07/25/21Complete Blood Count 10/24/21Fr T3 07/25/21Lipid Profile 07/25/21Complete Metabolic Panel 07/25/21Complete Metabolic Panel 10/24/21 [facility] Evaluation + Plan note Future Appointments Appointment Date:01/08/2022 03:15:00 PM Scheduled Provider: Location:[facility] Appointment Type:CV Office Procedure ILR Appointment Date:01/16/2022 04:40:00 PM Scheduled Provider:CHRISTIANA BATISTA DO Location:[facility] Appointment Type:PC OV Appointment Date:02/05/2022 04:30:00 PM Scheduled Provider: Location:[facility] Appointment Type:CV OV Appointment Date:02/25/2022 10:00:00 AM Scheduled Provider:DIEGO BEDOYA MD Location:UROLOGY Appointment Type:URO Off Proc Cysto Appointment Date:04/09/2022 10:00:00 AM Scheduled Provider: Location:[facility] Appointment Type:CV Remote Procedure HM Future Scheduled TestsMagnesium Level 07/25/21Thyroid Antibodies 07/25/21Thyroid Stimulating Hormone 07/25/21Thyroid Stimulating Hormone 10/24/21Free T4 07/25/21Pathology Non-Branch Mechanic Request 02/25/22A1C Hemoglobin 07/25/21A1C Hemoglobin 10/24/21Complete Blood Count 07/25/21Complete Blood Count 10/24/21Free T3 07/25/21Lipid Profile 07/25/21Complete Metabolic Panel 07/25/21Complete Metabolic Panel 10/24/21 [facility] Evaluation + Plan note Future Appointments Appointment Date:01/30/2022 03:00:00 PM Scheduled Provider:CHRISTIANA BATISTA DO Location:[facility] Appointment Type:PC OV Appointment Date:02/05/2022 02:45:00 PM Scheduled Provider: Location:[facility] Appointment Type:CV OV Appointment Date:02/25/2022 10:00:00 AM Scheduled Provider:DIEGO BEDOYA MD Location:UROLOGY Appointment Type:URO Off Proc Cysto Appointment Date:04/09/2022 10:00:00 AM Scheduled Provider: Location:[facility] Appointment Type:CV Remote Procedure HM Future Scheduled TestsPathology Non-Branch Mechanic Request 02/25/22Magnesium Level 01/09/22Thyroid Antibodies 07/25/21Thyroid Stimulating Hormone 07/25/21Thyroid Stimulating Hormone 01/09/22Free T4 01/09/22A1C Hemoglobin 07/25/21A1C Hemoglobin 01/09/22Complete Blood Count 07/25/21Complete Blood Count 01/09/22Free T3 01/09/22Lipid Profile 07/25/21Complete Metabolic Panel 07/25/21Complete Metabolic Panel 01/09/22 [facility] Evaluation + Plan note Future Appointments Appointment Date:06/19/2022 08:00:00 AM Scheduled Provider: Location:[facility] Appointment Type:EP Event Recorder Insertion Appointment Date:08/07/2022 03:00:00 PM Scheduled Provider:CHRISTIANA BATISTA DO Location:[facility] Appointment Type:PC OV Appointment Date:09/18/2022 02:30:00 PM Scheduled Provider: Location:[facility] Appointment Type:CV Office Procedure ILR Appointment Date:05/20/2023 04:15:00 PM Scheduled Provider: Location:[facility] Appointment Type:CV OV Future Scheduled TestsPathology Non-Branch Mechanic Request 02/25/22Pathology Non-Branch Mechanic Request 09/02/22Thyroid Antibodies 07/25/21Thyroid Stimulating Hormone 07/25/21A1C Hemoglobin 07/25/21Complete Blood Count 07/25/21Complete Blood Count 01/09/22Lipid Profile 07/25/21Complete Metabolic Panel 07/25/21 [facility] Evaluation + Plan note Future Appointments Appointment Date:08/07/2022 03:00:00 PM Scheduled Provider:CHRISTIANA BATISTA DO Location:[facility] Appointment Type:PC OV Appointment Date:09/02/2022 09:00:00 AM Scheduled Provider:IDEGO BEDOYA MD Location:UROLOGY Appointment Type:URO Off Proc Cysto Appointment Date:09/18/2022 02:30:00 PM Scheduled Provider: Location:[facility] Appointment Type:CV Office Procedure ILR Appointment Date:12/17/2022 09:30:00 AM Scheduled Provider: Location:[facility] Appointment Type:CV Remote Procedure HM Appointment Date:05/20/2023 04:15:00 PM Scheduled Provider: Location:[facility] Appointment Type:CV OV Future Scheduled TestsPathology Non-Branch Mechanic Request 02/25/22Pathology Non-Branch Mechanic Request 09/02/22Thyroid Antibodies 07/25/21Thyroid Stimulating Hormone 07/25/21A1C Hemoglobin 07/25/21Complete Blood Count 07/25/21Complete Blood Count 01/09/22Lipid Profile 07/25/21Complete Metabolic Panel 07/25/21 [facility] Evaluation + Plan note Future Appointments Appointment Date:09/02/2022 09:00:00 AM Scheduled Provider:DIEGO BEDOYA MD Location:UROLOGY Appointment Type:URO Off Proc Cysto Appointment Date:09/18/2022 02:30:00 PM Scheduled Provider: Location:[facility] Appointment Type:CV Office Procedure ILR Appointment Date:12/17/2022 09:30:00 AM Scheduled Provider: Location:[facility] Appointment Type:CV Remote Procedure HM Appointment Date:02/05/2023 03:00:00 PM Scheduled Provider:CHRISTIANA BATISTA DO Location:[facility] Appointment Type:PC OV Follow Up Appointment Date:05/20/2023 04:00:00 PM Scheduled Provider: Location:[facility] Appointment Type:CV Office Procedure ILR Appointment Date:05/20/2023 04:15:00 PM Scheduled Provider: Location:[facility] Appointment Type:CV OV Future Scheduled TestsPathology Non-Branch Mechanic Request 02/25/22Pathology Non-Branch Mechanic Request 09/02/22Complete Blood Count 01/09/22 [facility] Evaluation + Plan note Future Appointments Appointment Date:09/18/2022 02:30:00 PM Scheduled Provider: Location:[facility] Appointment Type:CV Office Procedure ILR Appointment Date:12/17/2022 09:30:00 AM Scheduled Provider: Location:[facility] Appointment Type:CV Remote Procedure HM Appointment Date:02/05/2023 03:00:00 PM Scheduled Provider:CHRISTIANA BATISTA DO Location:[facility] Appointment Type:PC OV Follow Up Appointment Date:05/20/2023 04:00:00 PM Scheduled Provider: Location:[facility] Appointment Type:CV Office Procedure ILR Appointment Date:05/20/2023 04:15:00 PM Scheduled Provider: Location:[facility] Appointment Type:CV OV Future Scheduled TestsPathology Non-Branch Mechanic Request 02/25/22Pathology Non-Branch Mechanic Request 09/02/22Pathology Non-Branch Mechanic Request 12/01/22Complete Blood Count 01/09/22 [facility] Evaluation + Plan note Future Appointments Appointment Date:12/09/2022 09:40:00 AM Scheduled Provider:DIEGO BEDOYA MD Location:UROLOGY Appointment Type:URO Off Proc Cysto Appointment Date:12/23/2022 09:30:00 AM Scheduled Provider: Location:[facility] Appointment Type:CV Remote Procedure HM Appointment Date:02/05/2023 03:00:00 PM Scheduled Provider:CHRISTIANA BATISTA DO Location:[facility] Appointment Type:PC OV Follow Up Appointment Date:05/20/2023 04:00:00 PM Scheduled Provider: Location:[facility] Appointment Type:CV Office Procedure ILR Appointment Date:05/20/2023 04:15:00 PM Scheduled Provider: Location:[facility] Appointment Type:CV OV Future Scheduled TestsPathology Non-Branch Mechanic Request 02/25/22Pathology Non-Branch Mechanic Request 09/02/22Complete Blood Count 01/09/22 [facility] Evaluation + Plan note Future Appointments Appointment Date:12/23/2022 09:30:00 AM Scheduled Provider: Location:[facility] Appointment Type:CV Remote Procedure HM Appointment Date:02/05/2023 03:00:00 PM Scheduled Provider:CHRISTIANA BATISTA DO Location:[facility] Appointment Type:PC OV Follow Up Appointment Date:05/20/2023 04:00:00 PM Scheduled Provider: Location:[facility] Appointment Type:CV Office Procedure ILR Appointment Date:05/20/2023 04:15:00 PM Scheduled Provider: Location:[facility] Appointment Type:CV OV Future Scheduled TestsPathology Non-Branch Mechanic Request 02/25/22Pathology Non-Branch Mechanic Request 09/02/22Pathology Non-Branch Mechanic Request 06/11/23Complete Blood Count 01/09/22US Renal 06/11/23 [facility] Evaluation + Plan note Future Appointments Appointment Date:02/05/2023 03:00:00 PM Scheduled Provider:CHRISTIANA BATISTA DO Location:[facility] Appointment Type:PC OV Follow Up Appointment Date:02/15/2023 10:00:00 AM Scheduled Provider: Location:[facility] Appointment Type:CV OV Appointment Date:02/15/2023 10:15:00 AM Scheduled Provider: Location:[facility] Appointment Type:CV Office Procedure ILR Appointment Date:05/17/2023 10:45:00 AM Scheduled Provider: Location:[facility] Appointment Type:CV Remote Procedure HM Appointment Date:06/30/2023 09:00:00 AM Scheduled Provider:DIEGO BEDOYA MD Location:UROLOGY Appointment Type:URO Off Proc Cysto Future Scheduled TestsPathology Non-Branch Mechanic Request 02/25/22Pathology Non-Branch Mechanic Request 09/02/22Pathology Non-Branch Mechanic Request 06/11/23Thyroid Stimulating Hormone 12/18/22A1C Hemoglobin 12/18/22Complete Blood Count 12/18/22Lipid Profile 12/18/22Complete Metabolic Panel 12/18/22US Renal 06/11/23 [facility] Evaluation + Plan note Future Appointments Appointment Date:06/23/2023 08:15:00 AM Scheduled Provider: Location:[facility] Appointment Type:CV Remote Procedure HM Appointment Date:06/30/2023 09:00:00 AM Scheduled Provider:DIEGO BEDOYA MD Location:UROLOGY Appointment Type:URO Off Proc Cysto Appointment Date:08/12/2023 03:30:00 PM Scheduled Provider:CHRISTIANA BATISTA DO Location:[facility] Appointment Type:PC OV Future Scheduled TestsPathology Non-Branch Mechanic Request 09/02/22Pathology Non-Branch Mechanic Request 06/11/23Thyroid Stimulating Hormone 08/08/23A1C Hemoglobin 08/08/23Complete Blood Count 08/08/23Lipid Profile 08/08/23Complete Metabolic Panel 08/08/23 [facility] Evaluation + Plan note Future Appointments Appointment Date:06/23/2023 08:15:00 AM Scheduled Provider: Location:[facility] Appointment Type:CV Remote Procedure Appointment Date:06/30/2023 09:00:00 AM Scheduled Provider:DIEGO BEDOYA MD Location:UROLOGY Appointment Type:URO Off Proc Cysto Appointment Date:08/12/2023 03:30:00 PM Scheduled Provider:CHRISTIANA BATISTA DO Location:[facility] Appointment Type:PC OV Future Scheduled TestsPathology Non-Branch Mechanic Request 09/02/22Thyroid Stimulating Hormone 08/08/23A1C Hemoglobin 08/08/23Complete Blood Count 08/08/23Lipid Profile 08/08/23Complete Metabolic Panel 08/08/23 [facility] Evaluation + Plan note Future Appointments Appointment Date:08/12/2023 03:30:00 PM Scheduled Provider:CHRISTIANA BATISTA DO Location:[facility] Appointment Type:PC OV Appointment Date:11/10/2023 10:00:00 AM Scheduled Provider: Location:[facility] Appointment Type:CV Remote Procedure HM Appointment Date:12/29/2023 08:00:00 AM Scheduled Provider:DIEGO BEDOYA MD Location:UROLOGY Appointment Type:URO Off Proc Cysto Future Scheduled TestsPathology Non-Branch Mechanic Request 12/30/23Pathology Non-Branch Mechanic Request 09/02/22Thyroid Stimulating Hormone 08/08/23A1C Hemoglobin 08/08/23Complete Blood Count 08/08/23Lipid Profile 08/08/23Complete Metabolic Panel 08/08/23 [facility] Evaluation + Plan note Future Appointments Appointment Date:08/12/2023 03:30:00 PM Scheduled Provider:CHRISTIANA BATISTA DO Location:[facility] Appointment Type:PC OV Appointment Date:11/10/2023 10:00:00 AM Scheduled Provider: Location:[facility] Appointment Type:CV Remote Procedure HM Appointment Date:12/29/2023 08:00:00 AM Scheduled Provider:DIEGO BEDOYA MD Location:UROLOGY Appointment Type:URO Off Proc Cysto Future Scheduled TestsPathology Non-Branch Mechanic Request 12/30/23Pathology Non-Branch Mechanic Request 09/02/22 [facility] Evaluation + Plan note Future Appointments Appointment Date:11/10/2023 10:00:00 AM Scheduled Provider: Location:[facility] Appointment Type:CV Remote Procedure HM Appointment Date:12/29/2023 08:00:00 AM Scheduled Provider:DIEGO BEDOYA MD Location:UROLOGY Appointment Type:URO Off Proc Cysto Appointment Date:02/11/2024 03:30:00 PM Scheduled Provider:CHRISTIANA BATISTA DO Location:[facility] Appointment Type:PC OV Future Scheduled TestsPathology Non-Branch Mechanic Request 12/30/23Thyroid Stimulating Hormone 02/10/24A1C Hemoglobin 02/10/24Complete Blood Count 02/10/24Lipid Profile 02/10/24Complete Metabolic Panel 02/10/24 [facility] Evaluation + Plan note Future Appointments Appointment Date:01/19/2024 08:20:00 AM Scheduled Provider:DIEGO BEDOYA MD Location:UROLOGY Appointment Type:URO Off Proc Cysto Appointment Date:02/11/2024 03:30:00 PM Scheduled Provider:CHRISTIANA BATISTA DO Location:[facility] Appointment Type:PC OV Appointment Date:02/18/2024 10:45:00 AM Scheduled Provider: Location:[facility] Appointment Type:CV Remote Procedure HM Future Scheduled TestsThyroid Stimulating Hormone 02/10/24A1C Hemoglobin 02/10/24Complete Blood Count 02/10/24Lipid Profile 02/10/24Complete Metabolic Panel 02/10/24 [facility] Evaluation + Plan note Future Appointments Appointment Date:02/11/2024 03:30:00 PM Scheduled Provider:CHRISTIANA BATISTA DO Location:[facility] Appointment Type:PC OV Appointment Date:02/18/2024 10:45:00 AM Scheduled Provider: Location:[facility] Appointment Type:CV Remote Procedure HM Future Scheduled TestsThyroid Stimulating Hormone 02/10/24A1C Hemoglobin 02/10/24Complete Blood Count 02/10/24Lipid Profile 02/10/24Complete Metabolic Panel 02/10/24 [facility] Evaluation + Plan note Future Appointments Appointment Date:02/04/2024 02:00:00 PM Scheduled Provider: Location:RAD Appointment Type:US Renal Appointment Date:02/11/2024 03:30:00 PM Scheduled Provider:CHRISTIANA BATISTA DO Location:[facility] Appointment Type:PC OV Appointment Date:02/16/2024 02:00:00 PM Scheduled Provider:CHET CABRERA Location:UROLOGY Appointment Type:URO OV Physical 20 min Appointment Date:02/18/2024 10:45:00 AM Scheduled Provider: Location:[facility] Appointment Type:CV Remote Procedure HM Appointment Date:02/29/2024 02:50:00 PM Scheduled Provider: Location:Main OR Appointment Type:Surgery - [facility] Appointment Date:03/10/2024 09:20:00 AM Scheduled Provider:DIEGO BEDOYA MD Location:UROLOGY Appointment Type:URO OV Post Op Future Scheduled TestsUS Renal 02/04/24 [facility] Evaluation + Plan note Future Appointments Appointment Date:02/11/2024 03:30:00 PM Scheduled Provider:CHRISTIANA BATISTA DO Location:[facility] Appointment Type:PC OV Appointment Date:02/16/2024 02:00:00 PM Scheduled Provider:CHET CABRERA Location:UROLOGY Appointment Type:URO OV Physical 20 min Appointment Date:02/18/2024 10:45:00 AM Scheduled Provider: Location:[facility] Appointment Type:CV Remote Procedure HM Appointment Date:02/29/2024 02:50:00 PM Scheduled Provider: Location:Main OR Appointment Type:Surgery [facility] Urology Appointment Date:03/10/2024 09:20:00 AM Scheduled Provider:DIEGO BEDOYA MD Location:UROLOGY Appointment Type:URO OV Post Op [facility] Evaluation + Plan note Future Appointments Appointment Date:02/18/2024 10:45:00 AM Scheduled Provider: Location:[facility] Appointment Type:CV Remote Procedure HM Appointment Date:02/29/2024 02:50:00 PM Scheduled Provider: Location:Main OR Appointment Type:Surgery [facility] Urology Appointment Date:03/10/2024 09:20:00 AM Scheduled Provider:DIEGO BEDOYA MD Location:UROLOGY Appointment Type:URO OV Post Op Appointment Date:05/11/2024 03:45:00 PM Scheduled Provider: Location:[facility] Appointment Type:CV OV Appointment Date:08/22/2024 03:30:00 PM Scheduled Provider:CHRISTIANA BATISTA DO Location:[facility] Appointment Type:PC OV Future Scheduled TestsThyroid Stimulating Hormone 08/13/24A1C Hemoglobin 08/13/24Complete Blood Count 08/13/24Lipid Profile 08/13/24Complete Metabolic Panel 08/13/24 [facility] Evaluation + Plan note Future Appointments Appointment Date:03/10/2024 09:20:00 AM Scheduled Provider:DIEGO BEDOYA MD Location:UROLOGY Appointment Type:URO OV Post Op Appointment Date:03/24/2024 02:45:00 PM Scheduled Provider: Location:[facility] Appointment Type:CV Remote Procedure HM Appointment Date:05/11/2024 03:45:00 PM Scheduled Provider: Location:[facility] Appointment Type:CV OV Appointment Date:08/22/2024 03:30:00 PM Scheduled Provider:CHRISTIANA BATISTA DO Location:[facility] Appointment Type:PC OV Future Scheduled TestsThyroid Stimulating Hormone 08/13/24A1C Hemoglobin 08/13/24Complete Blood Count 08/13/24Lipid Profile 08/13/24Complete Metabolic Panel 08/13/24 [facility] Evaluation + Plan note Future Appointments Appointment Date:03/24/2024 02:45:00 PM Scheduled Provider: Location:[facility] Appointment Type:CV Remote Procedure HM Appointment Date:05/11/2024 03:45:00 PM Scheduled Provider: Location:[facility] Appointment Type:CV OV Appointment Date:08/22/2024 03:30:00 PM Scheduled Provider:CHRISTIANA BATISTA DO Location:[facility] Appointment Type:PC OV Future Scheduled TestsPathology Non-Branch Mechanic Request 06/10/24Thyroid Stimulating Hormone 08/13/24A1C Hemoglobin 08/13/24Complete Blood Count 08/13/24Lipid Profile 08/13/24Complete Metabolic Panel 08/13/24BD Bone Density DEXA Axial Skeleton 03/10/24 [facility] Evaluation + Plan note Future Appointments Appointment Date:05/05/2024 02:00:00 PM Scheduled Provider: Location:[facility] Appointment Type:CV Remote Procedure Appointment Date:05/11/2024 03:45:00 PM Scheduled Provider: Location:[facility] Appointment Type:CV OV Appointment Date:06/07/2024 08:10:00 AM Scheduled Provider:DIEGO BEDOYA MD Location:UROLOGY Appointment Type:URO Off Proc Cysto Appointment Date:08/22/2024 03:30:00 PM Scheduled Provider:CHRISTIANA BATISTA DO Location:[facility] Appointment Type:PC OV Future Scheduled TestsPathology Non-Branch Mechanic Request 06/10/24Thyroid Stimulating Hormone 08/13/24A1C Hemoglobin 08/13/24Complete Blood Count 08/13/24Lipid Profile 08/13/24Complete Metabolic Panel 08/13/24 [facility] Evaluation + Plan note Future Appointments Appointment Date:06/07/2024 08:10:00 AM Scheduled Provider:DIEGO BEDOYA MD Location:UROLOGY Appointment Type:URO Off Proc Cysto Appointment Date:06/16/2024 11:15:00 AM Scheduled Provider: Location:[facility] Appointment Type:CV Remote Procedure HM Appointment Date:08/22/2024 03:30:00 PM Scheduled Provider:CHRISTIANA BATISTA DO Location:[facility] Appointment Type:PC OV Future Scheduled TestsThyroid Stimulating Hormone 08/13/24A1C Hemoglobin 08/13/24Complete Blood Count 08/13/24Lipid Profile 08/13/24Complete Metabolic Panel 08/13/24 [facility] Evaluation + Plan note Future Appointments Appointment Date:08/22/2024 03:30:00 PM Scheduled Provider:CHRISTIANA BATISTA DO Location:[facility] Appointment Type:PC OV Appointment Date:09/06/2024 08:40:00 AM Scheduled Provider:DIEGO BEDOYA MD Location:UROLOGY Appointment Type:URO Off Proc Cysto Appointment Date:09/08/2024 02:00:00 PM Scheduled Provider: Location:[facility] Appointment Type:CV Remote Procedure Future Scheduled TestsPathology Non-Branch Mechanic Request 09/06/24 [facility] Evaluation + Plan note Future Appointments Appointment Date:09/06/2024 08:40:00 AM Scheduled Provider:DIEGO BEDOYA MD Location:UROLOGY Appointment Type:URO Off Proc Cysto Appointment Date:09/08/2024 02:00:00 PM Scheduled Provider: Location:[facility] Appointment Type:CV Remote Procedure HM Appointment Date:02/20/2025 03:30:00 PM Scheduled Provider:CHRISTIANA BATISTA DO Location:[facility] Appointment Type:PC OV Future Scheduled TestsThyroid Stimulating Hormone 02/19/25A1C Hemoglobin 02/19/25Complete Blood Count 02/19/25Lipid Profile 02/19/25Complete Metabolic Panel 02/19/25 [facility] Evaluation + Plan note Future Appointments Appointment Date:06/16/2024 11:15:00 AM Scheduled Provider: Location:[facility] Appointment Type:CV Remote Procedure Appointment Date:08/22/2024 03:30:00 PM Scheduled Provider:CHRISTIANA BATISTA DO Location:[facility] Appointment Type:PC OV Appointment Date:09/06/2024 08:40:00 AM Scheduled Provider:DIEGO BEDOYA MD Location:UROLOGY Appointment Type:URO Off Proc Cysto Future Scheduled TestsPathology Non-Branch Mechanic Request 09/06/24Thyroid Stimulating Hormone 08/13/24A1C Hemoglobin 08/13/24Complete Blood Count 08/13/24Lipid Profile 08/13/24Complete Metabolic Panel 08/13/24 [facility] Evaluation + Plan note Future Appointments Appointment Date:02/09/2025 11:30:00 AM Scheduled Provider: Location:[facility] Appointment Type:CV Remote Procedure Appointment Date:02/20/2025 03:30:00 PM Scheduled Provider:CHRISTIANA BATISTA DO Location:[facility] Appointment Type:PC OV Appointment Date:06/06/2025 08:00:00 AM Scheduled Provider:DIEGO BEDOYA MD Location:UROLOGY Appointment Type:URO Off Proc Cysto Future Scheduled TestsPathology Non-Branch Mechanic Request 06/08/25yroid Stimulating Hormone 02/19/25A1C Hemoglobin 02/19/25Complete Blood Count 02/19/25Lipid Profile 02/19/25Complete Metabolic Panel 02/19/25 [facility] Evaluation + Plan note Future Appointments Appointment Date:02/09/2025 11:30:00 AM Scheduled Provider: Location:[facility] Appointment Type:CV Remote Procedure Appointment Date:02/20/2025 03:30:00 PM Scheduled Provider:CHRISTIANA BATISTA DO Location:[facility] Appointment Type:PC OV Appointment Date:06/06/2025 08:00:00 AM Scheduled Provider:DIEGO BEDOYA MD Location:UROLOGY Appointment Type:URO Off Proc Cysto Future Scheduled TestsPathology Non-Branch Mechanic Request 06/08/25 [facility] Evaluation + Plan note Future Appointments Appointment Date:04/18/2025 09:00:00 AM Scheduled Provider:GABRIELE DALEY Location:[facility] Appointment Type:PC OV Appointment Date:05/25/2025 11:00:00 AM Scheduled Provider: Location:[facility] Appointment Type:CV Remote Procedure HM Appointment Date:06/06/2025 08:00:00 AM Scheduled Provider:DIEGO BEDOYA MD Location:UROLOGY Appointment Type:URO Off Proc Cysto Appointment Date:08/28/2025 03:30:00 PM Scheduled Provider:CHRISTIANA BATISTA DO Location:[facility] Appointment Type: Wellness Medicare Future Scheduled TestsPathology Non-Branch Mechanic Request 06/08/25yroid Stimulating Hormone 08/23/25Complete Blood Count 08/23/25Lipid Profile 08/23/25Complete Metabolic Panel 08/23/25 [facility] Evaluation + Plan note Future Appointments Appointment Date:04/30/2025 03:00:00 PM Scheduled Provider: Location:RAD Appointment Type:CT Chest w/ Contrast Appointment Date:05/25/2025 11:00:00 AM Scheduled Provider: Location:[facility] Appointment Type:CV Remote Procedure HM Appointment Date:06/06/2025 08:00:00 AM Scheduled Provider:DIEGO BEDOYA MD Location:UROLOGY Appointment Type:URO Off Proc Cysto Appointment Date:08/28/2025 03:30:00 PM Scheduled Provider:CHRISTIANA BATISTA DO Location:[facility] Appointment Type:PC Wellness Medicare Future Scheduled TestsPathology Non-Branch Mechanic Request 06/08/25yroid Stimulating Hormone 08/23/25Complete Blood Count 08/23/25Lipid Profile 08/23/25Complete Metabolic Panel 08/23/25CT Thorax w/ Contrast 04/30/25 [facility] Evaluation note Diagnosis Onset Date Hydronephrosis acute Ureteral calculus acute Multiple pulmonary nodules a cute Screening for breast cancer [facility] Work Phone: Evaluation note* Diagnosis Onset Date Resolution Status Multiple pulmonary nodules a cute Stage 1 mild COPD by GOLD classification [facility] Work Phone: Evaluation noteNo assessment information available [facility] Work Phone: Evaluation note* Diagnosis Onset Date Resolution Status Stage 1 mild COPD by GOLD classification acute Multiple pulmonary nodules c hronic [facility] Work Phone: Hospital course Narrative No data available for this section [facility] Hospital Discharge instructions No data available for this section [facility] Note* LAUREN REYNOLDS MD: SIGN, VERIFY Event Display: Insert Event Recorder Authored Date: [facility] Progress note No data available for this section [facility] Chief Complaint and Reason for Visit Chief Complaint LUNG NODULES Other nonspecific abnormal finding of lung field Other nonspecific abnormal finding of lung field R91.8 Reason for Visit Hydronephrosis Ureteral calculus Multiple pulmonary nodules Screening for breast cancer Chief Complaint R91.8 3 M FU MULTIPLE PULM NODULES Reason for Visit Multiple pulmonary n odules Stage 1 mild COPD by GOLD classification Chief Complaint MULTIPLE PULM NODULE S 3 M FU LEFT KIDNEY STONE Reason for Visit Multiple pulmonary n odules Stage 1 mild COPD by GOLD classification Chief Complaint PULM NODULES Chief Complaint Cough STONES- KUB Reason for Visit Stage 1 mild COPD by GOLD classification Multiple pulmonary nodules Chief Complaint Cough STONES- KUB Abnormal uterine and vaginal bleeding, unspecified Reason for Visit Stage 1 mild COPD by GOLD classification Multiple pulmonary nodules Advance Directives No Advanced Directives Records Found Advance Directive Response Recorded Date/ Time Living Will Yes September 23 4:27pm Power of Psychology Technician Yes September 23, 2021 4:27pm Advance Directive Response Recorded Date/ Time Living Will Yes October 07 1:22pm Power of Psychology Technician Yes October 07, 2023 1:22pm Summary Purpose Family History No Family History Records Found Additional Source Comments Goals (unrecognized section and content) Goals may be documented in a n alternate section Care Team (unrecognized sect ion and content) Team Status: Active Member Role Status Dates Dr. Bogdan Guadarrama MD Family Provider Active Dr. Christiana Mora Lynne , DO Primary Care Provider Activ e Team Status: Inactive Member Role Status Dates Dr. Christiana Batista , DO Primary Care Provider Activ e Dr. Javier Casanova MD Attending Provider, Referring Pr ovider Active Team Status: Inactive Member Role Status Dates Dr. Christiana Batista , DO Primary Care Provider Activ e Dr. Harleen Franklin MD Attending Provider, Referring P rovider Active Team Status: Inactive Member Role Status Dates Dr. Christiana Batista , DO Primary Care Provider, Refe rring Provider Active Ami Simmons PRINTER REPAIR TECHNICIAN, PRINTER REPAIR TECHNICIAN-C Attending Provider Active Care Team (unrecognized sect ion and content) Care Team Personnel Name: CHRISTIANA BATISTA DO Position: P4 Physician - Primary Care Med Service: Active Provider Member Role: Primary Care Physician Address: Address: [address] [place] [address] Name: LAUREN REYNOLDS MD Position: P4 Physician - Cardiology Med Service: Active Provider Member Role: Ornamental Painter Address: Address: [address] [place] [address]- Care Team Related Persons Name: ELISSA AG Name: NORMA VIDAL Address: Home [address] [place], [place] [id number] [place] Care Team Personnel Name: CHRISTIANA BATISTA DO Position: P4 Physician - Primary Care Med Service: Active Provider Member Role: Primary Care Physician Address: Address: [address] [place] [address] Name: LAUREN REYNOLDS MD Position: P4 Physician - Cardiology Med Service: Active Provider Member Role: Ornamental Painter Address: Address: [address] [place] [address] Care Team Related Persons Name: ELISSA AG Name: NORMA VIDAL Address: Home [address] [place], [place] [id number] [place] Care Team Personnel Name: CHRISTIANA BATISTA DO Position: P4 Physician - Primary Care Member Role: Primary Care Physician Address: Address: [address] [place] [address], [place] [address]- Name: LAUREN REYNOLDS MD Position: P4 Physician - Cardiology Member Role: Ornamental Painter Address: Address: [address] [place], [place] [id number]- Care Team Related Persons Name: ELISSA AG Name: NORMA VIDAL Address: Home [address] [place], [place] [phone] [place] Care Team Personnel Name: CHRISTIANA BATISTA DO Position: P4 Physician - Primary Care Member Role: Primary Care Physician Address: Address: [address] [place] [address]- Name: LAUREN REYNOLDS MD Position: P4 Physician - Cardiology Member Role: Ornamental Painter Address: Address: [address] [place] [id number]- Care Team Related Persons Name: ELISSA AG Name: NORMA VIDAL Address: Home [address] [place], [place] [phone] [place] Care Team Personnel Name: CHRISTIANA BATISTA DO Position: P4 Physician - Primary Care Member Role: Primary Care Physician Address: Address: [address] [place] [address]- Name: LAUREN REYNOLDS MD Position: P4 Physician - Cardiology Member Role: Ornamental Painter Address: Address: [address] [place] [address] [address]- Care Team Related Persons Name: ELISSA AG Name: NORMA VIDAL Address: Home [address] [place], [place] [phone] [place] INFORMATION SOURCE (unrecogn ized section and content) DATE CREATED AUTHOR 03/12/2024 [facility] DATE CREATED AUTHOR AUTHOR'S ORGANIZ ATION 06/03/2024 [facility] ([place]) DATE CREATED AUTHOR AUTHOR'S ORGANIZ ATION 01/12/2025 [facility] DATE CREATED AUTHOR AUTHOR'S ORGANIZ ATION 04/27/2025 [facility] FOR RECORDS PERTAINING TO PATIENTS WHO ARE [...] BE BASED ON THE PRIMARY CLINICAL RECORDS. [facility] [employer], [facility]. provides no warranty or guarantee of the accuracy or completeness of information in this document.
== END | disposition home or self-care (01) ==
DX: R91.8 Other nonspecific abnormal finding of lung field (principal)
CPT/HCPCS: 71260; Q9967